=== PATIENT | male | born 1975 | race Hispanic/Latino ===

== ENCOUNTER 2017-01-26 14:22 | Emergency (ER) | payer MEDICAID, OTHER ==
[2017-01-26 14:28] VITALS: TEMP 97.9
--- NOTE | 2017-01-26 14:55 | RAD ---
PROCEDURE: Left Ankle Radiographs. HISTORY: pain s.p injury COMPARISON: None FINDINGS: BONES: Comminuted calcaneal fracture. JOINTS: No dislocation. SOFT TISSUES: Soft tissue swelling. No evidence of radiopaque foreign body. OTHER FINDINGS: None. IMPRESSION: Soft tissue swelling. Comminuted displaced calcaneal fracture with intra-articular extension.
--- NOTE | 2017-01-26 14:57 | RAD ---
PROCEDURE: Left Foot Radiographs. HISTORY: pain s.p injury COMPARISON: None. FINDINGS: BONES: There is an acute displaced fracture in the body with 8 mm distraction of fracture fragments and mild inferior displacement. Of the calcaneus JOINTS: There is probable dislocation of the talocalcaneal joint. SOFT TISSUES: Normal. OTHER FINDINGS: None. IMPRESSION: Acute displaced fracture in the calcaneus with suspected dislocation of the talocalcaneal joint.
--- NOTE | 2017-01-26 15:18 | C.PDOC ---
History Of Present Illness 41 y/o male presents to ED with complaints of left foot and ankle swelling for 10 days. Patient states 12 days ago he fell down the stairs and has been putting ice on foot and resting foot. He states he has not been able to move or walk secondary to pain. He noticed bruising over the past few days. Patient came to ED walking with 2 canes. Patient states he is from [place], and moved here 2 months ago. Patient is also asking for refill of his Lexapro. ( Lexapro 20mg by Dr Rodrigo Li) Time Seen by Provider: 01/26/17 14:38 Chief Complaint (Nursing): Lower Extremity Problem/Injury History Per: Patient History/Exam Limitations: no limitations Onset/Duration Of Symptoms: Days Current Symptoms Are (Timing): Still Present - Ankle/Foot Description Of Injury: Fell Currently Unable To: Bear Weight Past Medical History Reviewed: Historical Data, Nursing Documentation, Vital Signs Vital Signs: Last Vital Signs Temp 97.9 F 01/26/17 17:46 Pulse 74 01/26/17 17:46 Resp 18 01/26/17 17:46 BP 131/90 01/26/17 17:46 Pulse Ox 97 01/26/17 18:09 - Medical History PMH: Anxiety, Depression Other PMH: ADHD, Insomnia Surgical History: No Surg Hx Family History: States: Unknown Family Hx - Social History Hx Alcohol Use: No Hx Substance Use: No - Immunization History Hx Tetanus Toxoid Vaccination: Yes Hx Influenza Vaccination: Yes Hx Pneumococcal Vaccination: Yes Review Of Systems Constitutional: Negative for: Weakness Eyes: Negative for: Vision Change Gastrointestinal: Negative for: Nausea, Vomiting Musculoskeletal: Positive for: Leg Pain, Foot Pain. Negative for: Back Pain Skin: Negative for: Rash Neurological: Negative for: Dizziness Physical Exam - Physical Exam Appears: Non-toxic, No Acute Distress Skin: Warm, Dry, No Rash, Ecchymosis (Right foot ecchymotic to plantar surface and lateral side) Head: Atraumatic, Normacephalic Eye(s): bilateral: Normal Inspection, EOMI Oral Mucosa: Moist Neck: Normal ROM Chest: Symmetrical Extremity: Tenderness (To left lateral ankle, calcaneus and dorsum of foot), No Calf Tenderness, Capillary Refill (<2 seconds), No Deformity, Swelling ( Moderate to left lateral ankle and foot) Pulses: Left Dorsalis Pedis: Normal, Right Dorsalis Pedis: Normal Neurological/Psych: Oriented x3, Normal Speech, Normal Motor, Normal Sensation Gait: Unable To Assess ED Course And Treatment - Laboratory Results Result Diagrams: 01/26/17 17:03 01/26/17 17:03 Lab Interpretation: No Acute Changes ECG: Interpreted By Me, Viewed By Me ECG Rhythm: Sinus Rhythm ECG Interpretation: No Acute Changes Rate From EC (bpm) O2 Sat by Pulse Oximetry: 97 (RA) Pulse Ox Interpretation: Normal Medical Decision Making Medical Decision Making: Impression: Foot and ankle swelling, suspect fracture Plan: Xray foot and ankle Progress: Xray reviewed showing soft tissue swelling. Comminuted displaced calcaneal fracture with intra-articular extension. 15:08 Paged podiatry 15:10 Podiatry resident calls back and will come to see patient 15:41 Podiatry resident Martha evaluated patient 17:48 Podiatry resident Martha states she spoke with attending Dr Briseno and wants pre-operative labs and CT of lower extremity. Patient is scheduled for surgery Tuesday 01/30. Podiatry resident applied Colon dressing and Posterior splint Patient was instructed on crutch training by CP. All labs and EKG ordered and reviewed with no acute findings. Patient given his refill of Lexapro and instructed to return for admission for surgery in 2 days. Patient verbalized understanding. Disposition - Disposition Referrals: Clinic,Med Surg [Primary Care Provider] - Gale Briseno DPM [Staff Provider] - Disposition: HOME/ ROUTINE Disposition Time: 18:40 Condition: STABLE Additional Instructions: You must return for admission Monday and scheduled for surgery Monday. Prescriptions: Escitalopram [Lexapro] 20 mg PO DAILY #14 tab Instructions: Calcaneal Fracture (ED), Medicine Refill (ED) Forms: [employer] ([employer]) - POA Present On Arrival: None - Clinical Impression Clinical Impression: Left calcaneal fracture, Medicine refill - PA / AERONAUTICAL RESEARCH ENGINEER / Resident Statement MD/DO has reviewed & agrees with the documentation as recorded. - Scribe Statement The provider has reviewed the documentation as recorded by the Shastaiberich Ewing All medical record entries made by the Scribe were at my direction and personally dictated by me. I have reviewed the chart and agree that the record accurately reflects my personal performance of the history, physical exam, medical decision making, and the department course for this patient. I have also personally directed, reviewed, and agree with the discharge instructions and disposition.
[2017-01-26 15:35] VITALS: RESP 18
--- NOTE | 2017-01-26 16:06 | CP.PCM.CON ---
History of Present Illness - History of Present Illness History of Present Illness: 41 year old male with PMHx including anxiety, depression, insominia, ADHD presents to ED for left foot pain and swelling for 2 weeks. Patient states that 2 weeks ago he tripped and fell down stairs and twisted his left foot. He states that he has not been seen by a doctor for this problem previously. He admits to ice and rest and states that he has been walking on his feet as needed. He states that he just moved here from [place] and does not have a PMD. He also admits that he takes supplements for his medical problems. Denies n/v/f/c/sob/cp. All:Penicilin Fx:ADHD Surgica hx:none Social: admits to occasional cigarette smoking, denies EtOH, denies recreational drug use Past Patient History - Past Social History Smoking Status: Heavy Smoker > 10 Cigarettes Daily - PSYCHIATRIC Hx Anxiety: Yes Hx Substance Use: No - SURGICAL HISTORY Hx Surgeries: No - ANESTHESIA Hx Anesthesia: No Meds Home Medications: Home Medication List Medication Instructions Recorded Confirmed Type Escitalopram [Lexapro] 20 mg PO DAILY #14 tab 01/26/17 Rx Allergies/Adverse Reactions: Allergies Allergy/AdvReac Type Severity Reaction Status Date / Time Penicillins Allergy RASH Verified 01/26/17 14:28 Physical Exam - Constitutional Appears: Well, Non-toxic, No Acute Distress - Extremities Exam Additional comments: Lower extremity focused exam: Vasc: DP and PT pulses palpable 2/4 b/l. CFT < 3 seconds to all digits. Skin temperature warm to warm from proximal to distal b/l Neuro: Gross sensation intact b/l Derm: Ecchymosis noted to entire aspect of left foot and ankle. Non-pitting edema noted to dorsum of right foot and ankle. No open lesions, no drainage. Ortho: Muscle strength 5/5 for DF, PF, Inv, Evrt. Tenderness on palpation to left calcaneus. - Neurological Exam Neurological exam: Alert, Oriented x3 - Psychiatric Exam Psychiatric exam: Normal Affect, Normal Mood Results - Vital Signs Recent Vital Signs: Last Vital Signs Temp 97.9 F 01/26/17 14:25 Pulse 95 H 01/26/17 15:34 Resp 18 01/26/17 15:34 BP 110/69 01/26/17 15:34 Pulse Ox 97 01/26/17 15:34 - Labs Result Diagrams: 01/26/17 17:03 01/26/17 17:03 Assessment & Plan - Assessment and Plan (Free Text) Assessment: 41 year old male with left calcaneal fracture Plan: patient examined and evaluated discussed in detail with attending, Dr. Briseno chart and vitals reviewed foot radiographic IMPRESSION: Acute displaced fracture in the calcaneus with suspected dislocation of the talocalcaneal joint. ankle radiographic IMPRESSION: Soft tissue swelling. Comminuted displaced calcaneal fracture with intra-articular extension. modified hughes compressive dressing and posterior splint applied to LLE patient to remain non WB to LLE with crutches keep dressing c/d/i patient to OR Monday at noon for ORIF of left calcaneus pt to come back on Monday for admission and pre op clearance CT ordered pre-op labs and testing ordered
[2017-01-26 17:12] LABS: BASO # 0.1 K/uL (0.0-0.2); BASO % 1.1 % (0.0-2.0); EOS # 0.6 K/uL (0.0-0.7); EOS % 5.7 % (0.0-4.0); HEMATOCRIT 42.9 % (35.0-51.0); LYMPH # 2.5 K/uL (1.0-4.3); LYMPH % 24.9 % (20.0-40.0); MEAN CELL VOLUME 93.3 fL (80.0-94.0); MEAN CORPUSCULAR HEMOGLOBIN 31.9 pg (27.0-31.0); MEAN CORPUSCULAR HGB CONC 34.2 g/dL (33.0-37.0); MONO # 0.9 K/uL (0.0-0.8); MONO % 8.7 % (0.0-10.0); NRBC % 0.1 % (0.0-2.0); RED CELL DISTRIBUTION WIDTH 12.9 % (11.5-14.5); WHITE BLOOD COUNT 10.1 K/uL (4.8-10.8)
[2017-01-26 17:21] LABS: CHLORIDE 97 mmol/L (98-107); POTASSIUM 4.5 mmol/L (3.6-5.2); SODIUM 138 mmol/L (132-148)
[2017-01-26 17:23] LABS: ALB/GLOB RATIO 1.1 (1.0-2.1); ALKALINE PHOSPHATASE 71 U/L (38-126); AST/SGOT 22 U/L (17-59); BILIRUBIN,TOTAL 0.7 mg/dL (0.2-1.3); CARBON DIOXIDE 29 mmol/L (22-30); GFR AFRICAN-AMERICAN > 60; TOTAL PROTEIN 7.7 g/dL (6.3-8.3)
[2017-01-26 17:24] LABS: ALT/SGPT 38 U/L (21-72); BLOOD UREA NITROGEN 11 mg/dL (9-20); GLUCOSE,RANDOM 82 mg/dL (75-110)
[2017-01-26 18:01] VITALS: BP 131/90; PULSE 74
[2017-01-26 18:09] VITALS: O2SAT 97
--- NOTE | 2017-01-26 18:22 | CT ---
PROCEDURE: HISTORY: calcaneus fracture COMPARISON: TECHNIQUE: 2.5 mm axial acquisition and display. Coronal and sagittal reconstructions. Dose report (mGy-cm): 306.78 FINDINGS: Comminuted calcaneal fracture. There is distraction of the major fracture fragments. Although this study is not diagnostic for Achilles tendon injury the Achilles tendon and insertion on the adjacent calcaneal fragment appears preserved. Preservation of talocalcaneal and talonavicular joint spaces. Profound edema at noted about the plantar aspect of the foot as well as medial aspect of the ankle. No additional fractures identified. The distal tibia and fibula are within normal limits. IMPRESSION: Acute, comminuted fracture of the calcaneus. Additional information provided above.
[2017-01-26 18:47] LABS: RBC URINE < 1 /hpf (0-3); URINE BILIRUBIN NEGATIVE (NEGATIVE); URINE BLOOD NEGATIVE (NEGATIVE); URINE GLUCOSE (UA) NORMAL (Normal); URINE KETONE NEGATIVE (NEGATIVE); URINE LEUKOCYTE ESTERASE NEG Leu/uL (Negative); URINE PROTEIN NEGATIVE (NEGATIVE); URINE UROBILINOGEN NORMAL mg/dL (0.2-1.0); WBC URINE < 1 /hpf (0-5)
[2017-01-26 18:51] LABS: URINE COLOR YELLOW (YELLOW)
--- NOTE | 2017-01-29 17:44 | CARD ---
APPROVED REPORT EKG Measurement Heart [id number] <Conclusion> Normal sinus rhythm Normal ECG
== END 2017-01-26 18:42 | disposition home or self-care (01) ==
LOC: SUPCPDRO 14:22 → C.ER 14:22
DX: S92.062A Displaced intraarticular fracture of left calcaneus, initial encounter for closed fracture (principal); W10.9XXA Fall (on) (from) unspecified stairs and steps, initial encounter; Y92.9 Unspecified place or not applicable

== ENCOUNTER 2017-01-29 19:33 | Inpatient (IN) | payer MEDICAID, OTHER ==
--- NOTE | 2017-01-29 20:35 | C.PDOC ---
History Of Present Illness 41 year old male presents to the ED, states he was instructed to come to ER for medical admission/medical optimization prior to OR repair tomorrow by freight dispatcher Dr. Briseno. Patient has a right sided calcaneal fracture, was seen in ER and splinted by podiatry resident on 01/26/2017 ([facility] ED). He admits he has sometimes been walking on the foot. He denies new falls/injuries. Time Seen by Provider: 01/29/17 19:54 Chief Complaint (Nursing): Lower Extremity Problem/Injury History Per: Patient History/Exam Limitations: no limitations Onset/Duration Of Symptoms: Days Current Symptoms Are (Timing): Still Present Severity: Moderate Additional History Per: Prior Records Past Medical History Reviewed: Historical Data, Nursing Documentation, Vital Signs Vital Signs: Last Vital Signs Temp 98.2 F 02/03/17 15:58 Pulse 77 02/03/17 15:58 Resp 20 02/03/17 15:58 BP 132/83 02/03/17 15:58 Pulse Ox 96 02/03/17 15:58 - Medical History PMH: Anxiety, Depression Family History: States: No Known Family Hx - Social History Hx Alcohol Use: No Hx Substance Use: No - Immunization History Hx Tetanus Toxoid Vaccination: Yes Hx Influenza Vaccination: Yes Hx Pneumococcal Vaccination: Yes Review Of Systems Except As Marked, All Systems Reviewed And Found Negative. Constitutional: Negative for: Fever, Chills Cardiovascular: Negative for: Chest Pain, Palpitations Respiratory: Negative for: Cough, Shortness of Breath Gastrointestinal: Negative for: Nausea, Vomiting, Abdominal Pain, Diarrhea Musculoskeletal: Positive for: Foot Pain (right calcaneal fracture ) Neurological: Negative for: Weakness, Numbness Physical Exam - Physical Exam Appears: Well, Non-toxic, No Acute Distress Skin: Warm, Dry Head: Atraumatic, Normacephalic Eye(s): bilateral: Normal Inspection Oral Mucosa: Moist Neck: Supple Cardiovascular: Rhythm Regular Respiratory: Normal Breath Sounds, No Rales, No Rhonchi, No Wheezing Gastrointestinal/Abdominal: Normal Exam, Bowel Sounds, Soft, No Tenderness Extremity: No Calf Tenderness, Capillary Refill (<2 sec all digits ), Other ( Posterior splint on right foot ) Pulses: Left Dorsalis Pedis: Normal, Right Dorsalis Pedis: Normal Neurological/Psych: Oriented x3, Normal Sensation (digits of foot ) Gait: With Assistance (patient is using crutches) ED Course And Treatment - Laboratory Results Result Diagrams: 02/03/17 06:16 02/03/17 06:16 ECG: Interpreted By Me, Viewed By Me (sinus rhythm 97 bpm, normal axis, no acute ST/T wave changes) ECG Rhythm: Sinus Rhythm (89 bpm ) ECG Interpretation: Normal O2 Sat by Pulse Oximetry: 97 (room air ) Pulse Ox Interpretation: Normal Progress Note: Preop blood work, CXR, and EKG ordered and reviewed. Podiatry resident was informed patient was in the ED, and [facility] patient is scheduled for OR tomorrow and was instructed to return ED for medical optimization. Patient was evaluated by podiatry resident at 20:15. - Physician Consult Information Physician Contacted: Efren Bragg Outcome Of Conversation: Discussed patient with hospitalist, agrees with admission to his service with Dr. Briseno for podiatry. Disposition - Disposition Disposition: HOSPITALIZED Disposition Time: 21:00 Condition: STABLE - Clinical Impression Clinical Impression: Calcaneal fracture - Scribe Statement The provider has reviewed the documentation as recorded by the Scribe Louise Hernandez All medical record entries made by the Scribe were at my direction and personally dictated by me. I have reviewed the chart and agree that the record accurately reflects my personal performance of the history, physical exam, medical decision making, and the department course for this patient. I have also personally directed, reviewed, and agree with the discharge instructions and disposition. Decision To Admit - Pt Status Changed To: Hospital Disposition Of: Inpatient - Admit Certification Admit to Inpatient:: After my assessment, the patient will require hospitalization for at least two midnights. This is because of the severity of symptoms shown, intensity of services needed, and/or the medical risk in this patient being treated as an outpatient. - InPatient: Physician Admission Certification: I certify that this patient requires 2 or more midnights of care for the following reason:: see notes - . Bed Request Type: Regular Admitting Physician: Efren Bragg Patient Diagnosis: Calcaneal fracture
[2017-01-29 20:41] LABS: BASO # 0.1 K/uL (0.0-0.2); BASO % 0.6 % (0.0-2.0); EOS # 0.5 K/uL (0.0-0.7); EOS % 5.1 % (0.0-4.0); HEMATOCRIT 38.2 % (35.0-51.0); LYMPH # 2.4 K/uL (1.0-4.3); LYMPH % 23.5 % (20.0-40.0); MEAN CORPUSCULAR HEMOGLOBIN 31.7 pg (27.0-31.0); MEAN CORPUSCULAR HGB CONC 34.1 g/dL (33.0-37.0); MEAN PLATELET VOLUME 7.1 fL (7.2-11.7); MONO # 0.7 K/uL (0.0-0.8); MONO % 7.4 % (0.0-10.0); RED CELL DISTRIBUTION WIDTH 13.3 % (11.5-14.5); WHITE BLOOD COUNT 10.1 K/uL (4.8-10.8)
[2017-01-29 20:46] LABS: CHLORIDE 102 mmol/L (98-107); SODIUM 138 mmol/L (132-148)
[2017-01-29 20:49] LABS: BLOOD UREA NITROGEN 18 mg/dL (9-20); CARBON DIOXIDE 23 mmol/L (22-30); GFR AFRICAN-AMERICAN > 60
[2017-01-29 20:50] LABS: GLUCOSE,RANDOM 104 mg/dL (75-110)
--- NOTE | 2017-01-29 21:09 | CP.PCM.CON ---
History of Present Illness - History of Present Illness History of Present Illness: 41 year old male with PMHx including anxiety, depression, insominia, ADHD presents to ED for left foot pain and swelling for 2 weeks. Patient states that a little more 2 weeks ago he tripped and fell down stairs and twisted his left foot. He was previously seen in the ED where he was placed in a hughes compressive dressing with a posterior splint and instructed to remain non-WB to LLE. He admits to walking 3 miles in the splint in the past few days. Denies n/ v/f/c/sob/cp. All:Penicilin Fx:ADHD Surgica hx:none Social: admits to occasional cigarette smoking, denies EtOH, denies recreational drug use Past Patient History - Infectious Disease Hx of Infectious Diseases: None - Past Social History Smoking Status: Current Some Days Smoker - PSYCHIATRIC Hx Anxiety: Yes Hx Depression: Yes Hx Substance Use: No - SURGICAL HISTORY Hx Surgeries: No - ANESTHESIA Hx Anesthesia: No Meds Allergies/Adverse Reactions: Allergies Allergy/AdvReac Type Severity Reaction Status Date / Time Penicillins Allergy Severe ANAPHYLAXIS Verified 01/29/17 19:51 Physical Exam - Constitutional Appears: Well, Non-toxic, No Acute Distress - Extremities Exam Additional comments: Dressing intact to LLE, but the outside dressing is dirty CFT< 3 seconds to all digits on left foot - Neurological Exam Neurological exam: Alert, Oriented x3 - Psychiatric Exam Psychiatric exam: Normal Affect, Normal Mood Results - Vital Signs Recent Vital Signs: Last Vital Signs Temp 99.0 F 01/29/17 19:43 Pulse 100 H 01/29/17 19:43 Resp 20 01/29/17 19:43 BP 134/87 01/29/17 19:43 Pulse Ox 97 01/29/17 20:53 - Labs Result Diagrams: 01/30/17 08:04 01/30/17 08:04 Labs: Laboratory Results - last 24 hr 01/29/17 01/29/17 01/29/17 20:31 20:31 20:31 WBC 10.1 RBC 4.11 L Hgb 13.0 Hct 38.2 MCV 93.0 MCH 31.7 H MCHC 34.1 RDW 13.3 Plt Count 409 H MPV 7.1 L Neut % (Auto) 63.4 Lymph % (Auto) 23.5 Atkinson % (Auto) 7.4 Eos % (Auto) 5.1 H Baso % (Auto) 0.6 Neut # 6.4 Lymph # 2.4 Atkinson # 0.7 Eos # 0.5 Baso # 0.1 PT 11.0 INR 1.0 APTT 35 H Sodium 138 Potassium 4.0 Chloride 102 Carbon Dioxide 23 Anion Gap 17 BUN 18 Creatinine 0.9 Est GFR ( Amer) > 60 Est GFR (Non-Af Amer) > 60 Random Glucose 104 Calcium 9.0 Blood Type 01/29/17 20:31 WBC RBC Hgb Hct MCV MCH MCHC RDW Plt Count MPV Neut % (Auto) Lymph % (Auto) Atkinson % (Auto) Eos % (Auto) Baso % (Auto) Neut # Lymph # Atkinson # Eos # Baso # PT INR APTT Sodium Potassium Chloride Carbon Dioxide Anion Gap BUN Creatinine Est GFR ( Amer) Est GFR (Non-Af Amer) Random Glucose Calcium Blood Type O POSITIVE Assessment & Plan - Assessment and Plan (Free Text) Assessment: 41 year old male with left calcaneal fracture Plan: patient examined and evaluated discussed in detail with attending, Dr. Briseno chart,labs and vitals reviewed foot radiographic IMPRESSION from 01/26/17: Acute displaced fracture in the calcaneus with suspected dislocation of the talocalcaneal joint. ankle radiographic IMPRESSION from 01/26/17: Soft tissue swelling. Comminuted displaced calcaneal fracture with intra-articular extension. dressing left intact to LLE patient to remain non WB to LLE with crutches patient to OR tomorrow at noon for ORIF of left calcaneus NPO after midnight pre-op labs and testing ordered by ED attending medical optimization to be obtained from primary team prior to taking pt to OR podiatry will continue to follow patient while in house
--- NOTE | 2017-01-29 21:55 | CP.PCM.HP ---
<Steffi Janell DAVILA - Last Filed: 01/29/17 21:46> History of Present Illness - History of Present Illness History of Present Illness: CC: "I fell" Patient is a 41 year old male with past medical history anxiety, depression and insomnia who reports a fall on 01/17/17. Patient states he was in [place] on his way home after work when he fell down 10-15 steps and twisted his left foot. Patient states he could not put weight on the foot following the fall and had assistance to the subway to get back home. Patient states he placed ice on his foot and rested it and avoided placing weight on the foot. Patient states he started a new job and does not have health insurance yet so he tried to wait and see if the foot improved. Patient states he did not see any improvement and came to the ER on 01/26. Xrays taken on that day indicated a calcaneal fracture and suspected dislocation of the talocalcaneal joint. Patient was seen by podiatry at that time and was told to return to the ED today for a planned ORIF of the left calcaneus for 01/30/17. Patient states he has been taking Aleve and Advil PM for pain with some relief. Patient reports intact sensation to the foot and improved pain since the splinting on 01/26. PMD: none PMHx: anxiety, depression, ADHA, insomnia, hypoglycemia which patient reports worsens his ADHD Meds: takes half a lexapro 20mg tablet, was taking 4 benadryl tablets plus two advil PM tablets to sleep at night. has taken klonopin in the past PSHx: denies family hx: denies social hx: denies alcohol and drugs, reports recently smoking 10 cigarettes per day since the fall that broke his calcaneus, moved here 3 months ago from [place], [place] by [facility] on 3rd floor- no elevator, works in a restaurant Present on Admission - Present on Admission Any Indicators Present on Admission: No Review of Systems - Constitutional Constitutional: absent: Chills, Fever, Weight Loss, Weakness - EENT Eyes: absent: Blurred Vision Nose/Mouth/Throat: absent: Nasal Congestion - Cardiovascular Cardiovascular: absent: Chest Pain - Respiratory Respiratory: absent: Cough, Dyspnea - Gastrointestinal Gastrointestinal: absent: Abdominal Pain, Diarrhea, Nausea, Vomiting - Genitourinary Genitourinary: absent: Difficulty Urinating, Dysuria - Musculoskeletal Musculoskeletal: Joint Swelling (left ankle). absent: Arthralgias, Back Pain, Numbness, Tingling - Integumentary Integumentary: absent: Rash, Skin Ulcer - Neurological Neurological: absent: Dizziness, Weakness - Psychiatric Psychiatric: Abnormal Sleep Pattern, Anxiety, Depression Past Patient History - Infectious Disease Hx of Infectious Diseases: None - Past Social History Smoking Status: Current Some Days Smoker - PSYCHIATRIC Hx Anxiety: Yes Hx Depression: Yes Hx Substance Use: No - SURGICAL HISTORY Hx Surgeries: No - ANESTHESIA Hx Anesthesia: No Meds Allergies/Adverse Reactions: Allergies Allergy/AdvReac Type Severity Reaction Status Date / Time Penicillins Allergy Severe ANAPHYLAXIS Verified 01/29/17 19:51 Physical Exam - Constitutional Appears: Non-toxic, No Acute Distress - Head Exam Head Exam: ATRAUMATIC, NORMOCEPHALIC - Eye Exam Eye Exam: EOMI - ENT Exam ENT Exam: Mucous Membranes Moist - Respiratory Exam Respiratory Exam: Clear to Auscultation Bilateral, NORMAL BREATHING PATTERN - Cardiovascular Exam Cardiovascular Exam: +S1, +S2 - GI/Abdominal Exam GI & Abdominal Exam: Normal Bowel Sounds, Soft. absent: Tenderness - Extremities Exam Additional comments: left ankle in splint- intact sensation to toes left foot, patient can move toes - Neurological Exam Neurological exam: Alert, Oriented x3 - Psychiatric Exam Psychiatric exam: Anxious - Expanded Psychiatric Exam Expanded Focused psych exam: Pressured Speech - Skin Skin Exam: Dry, Warm Results - Vital Signs Recent Vital Signs: Last Vital Signs Temp 99.0 F 01/29/17 19:43 Pulse 100 H 01/29/17 19:43 Resp 20 01/29/17 19:43 BP 134/87 01/29/17 19:43 Pulse Ox 97 01/29/17 20:53 - Labs Result Diagrams: 01/29/17 20:31 01/29/17 20:31 Labs: Laboratory Results - last 24 hr 01/29/17 01/29/17 01/29/17 20:31 20:31 20:31 WBC 10.1 RBC 4.11 L Hgb 13.0 Hct 38.2 MCV 93.0 MCH 31.7 H MCHC 34.1 RDW 13.3 Plt Count 409 H MPV 7.1 L Neut % (Auto) 63.4 Lymph % (Auto) 23.5 [place] % (Auto) 7.4 Eos % (Auto) 5.1 H Baso % (Auto) 0.6 Neut # 6.4 Lymph # 2.4 [place] # 0.7 Eos # 0.5 Baso # 0.1 PT 11.0 INR 1.0 APTT 35 H Sodium 138 Potassium 4.0 Chloride 102 Carbon Dioxide 23 Anion Gap 17 BUN 18 Creatinine 0.9 Est GFR ( Amer) > 60 Est GFR (Non-Af Amer) > 60 Random Glucose 104 Calcium 9.0 Blood Type Antibody Screen 01/29/17 20:31 WBC RBC Hgb Hct MCV MCH MCHC RDW Plt Count MPV Neut % (Auto) Lymph % (Auto) [place] % (Auto) Eos % (Auto) Baso % (Auto) Neut # Lymph # [place] # Eos # Baso # PT INR APTT Sodium Potassium Chloride Carbon Dioxide Anion Gap BUN Creatinine Est GFR ( Amer) Est GFR (Non-Af Amer) Random Glucose Calcium Blood Type O POSITIVE Antibody Screen Negative Assessment & Plan - Assessment and Plan (Free Text) Assessment: Calcaneal fracture pt to go to OR tomorrow with Dr. Briseno for ORIF left calcaneus NPO after midnight foot radiographic IMPRESSION from 01/26/17: Acute displaced fracture in the calcaneus with suspected dislocation of the talocalcaneal joint. ankle radiographic IMPRESSION from 01/26/17: Soft tissue swelling. Comminuted displaced calcaneal fracture with intra-articular extension. CT 01/26: Comminuted calcaneal fracture. There is distraction of the major fracture fragments. Although this study is not diagnostic for Achilles tendon injury the Achilles tendon and insertion on the adjacent calcaneal fragment appears preserved. Preservation of talocalcaneal and talonavicular joint spaces. chest xray- AP only- poor inspiratory effort, no obvious infiltrates seen, official report pending pending EKG per Detsky score, patient Class I low risk for non cardiac surgery Anxiety and depression will continue home medication lexapro 10mg- patient states he takes it at night as it makes him lethargic will place psychiatry consult- help appreciated Insomnia will try restoril tonight for sleep explained to patient that 4 benadryl tablets plus 2 advil PM is not a safe amount of medication Prophylactic measure non WB to LLE with crutches holding heparin for surgery tomorrow NPO after midnight protonix 40mg daily Plan D/W Dr. Bragg <Efren Bragg - Last Filed: 01/30/17 06:15> Results - Vital Signs Recent Vital Signs: Last Vital Signs Temp 98.1 F 01/29/17 23:50 Pulse 78 01/29/17 23:50 Resp 20 01/29/17 23:50 BP 117/79 01/29/17 23:50 Pulse Ox 96 01/29/17 23:50 - Labs Result Diagrams: 01/29/17 20:31 01/29/17 20:31 Assessment & Plan - Date & Time Date: 01/30/17 (I have seen and examined the patient. I agree with the findings and plan of care as documented by Dr. Kapadia. Patient with calcaneal fracture. Consult to podiatry. Symptomatic treatment. Medically optimize prior to procedure. Also with history of anxiety, depression, and insomnia. Patient may be misusing his meds to treat insomnia. Consult to psych. Discussed issue with patient regarding his use of medications for sleep. Monitor for acute changes.) Time: 06:14 Attending/Attestation - Attestation I have personally seen and examined this patient.: Yes I have fully participated in the care of the patient.: Yes I have reviewed all pertinent clinical information: Yes
--- NOTE | 2017-01-30 08:19 | CP.PCM.PCO ---
Physician Communication Note - Physician Communication Note Physician Communication Note: Please see above
[2017-01-30 08:21] LABS: BASO # 0.1 K/uL (0.0-0.2); BASO % 1.3 % (0.0-2.0); EOS # 0.6 K/uL (0.0-0.7); EOS % 6.9 % (0.0-4.0); HEMATOCRIT 38.4 % (35.0-51.0); LYMPH # 2.5 K/uL (1.0-4.3); LYMPH % 27.4 % (20.0-40.0); MEAN CELL VOLUME 92.4 fL (80.0-94.0); MEAN CORPUSCULAR HEMOGLOBIN 31.6 pg (27.0-31.0); MEAN CORPUSCULAR HGB CONC 34.2 g/dL (33.0-37.0); MONO # 0.8 K/uL (0.0-0.8); MONO % 9.1 % (0.0-10.0); RED CELL DISTRIBUTION WIDTH 12.6 % (11.5-14.5)
--- NOTE | 2017-01-30 08:24 | CP.PCM.PN ---
Subjective - Date & Time of Evaluation Date of Evaluation: 01/30/17 Time of Evaluation: 08:24 - Subjective Subjective: Patient seen resting comfortably at bedside this morning with attending, Dr. Luo. Patient is aware he is going for surgery this afternoon with Dr. Briseno. NPO status confirmed. He denies nay n/v/f/c/sob/cp. Objective - Vital Signs/Intake and Output Vital Signs (last 24 hours): Temp Pulse Resp BP Pulse Ox 98.1 F 78 20 117/79 96 01/29/17 23:50 01/29/17 23:50 01/29/17 23:50 01/29/17 23:50 01/29/17 23:50 Intake and Output: 01/30/17 01/30/17 06:59 18:59 Output Total 450 Balance -450 - Medications Medications: Current Medications Escitalopram Oxalate (Lexapro) 10 mg PO HS MARIZOL Last Admin: 01/30/17 00:47 Dose: Not Given Pantoprazole Sodium (Protonix Ec Tab) 40 mg PO DAILY MARIZOL Temazepam (Restoril) 30 mg PO HS PRN PRN Reason: Insomnia Last Admin: 01/30/17 00:46 Dose: 30 mg - Labs Labs: PT 11.0 SECONDS (9.7-12.2) 01/29/17 20:31 INR 1.0 01/29/17 20:31 APTT 35 SECONDS (21-34) H 01/29/17 20:31 - Constitutional Appears: Well, Non-toxic, No Acute Distress - Extremities Exam Additional comments: splint intact to LLE pt able to wiggle toes CFT <3 seconds to all digits on L - Neurological Exam Neurological Exam: Alert, Awake, Oriented x3 - Psychiatric Exam Psychiatric exam: Normal Affect, Normal Mood Assessment and Plan - Assessment and Plan (Free Text) Assessment: 41 year old male with left calcaneal fracture Plan: patient examined and evaluated NPO status confirmed Pre op testing and optimization in chart Pt was explained procedure and post-op course all pts questions answered to patients satisfaction no guarantees were made pt understands all risks, benefits, and complications of procedure pt will follow up with
[2017-01-30 08:40] LABS: CHLORIDE 100 mmol/L (98-107); SODIUM 135 mmol/L (132-148)
[2017-01-30 08:42] LABS: GFR AFRICAN-AMERICAN > 60
[2017-01-30 08:44] LABS: ALKALINE PHOSPHATASE 86 U/L (38-126); ALT/SGPT 39 U/L (21-72); AST/SGOT 31 U/L (17-59); BILIRUBIN,TOTAL 0.7 mg/dL (0.2-1.3); BLOOD UREA NITROGEN 16 mg/dL (9-20); CALCIUM 9.2 mg/dl (8.6-10.4); CARBON DIOXIDE 26 mmol/L (22-30); GLUCOSE,RANDOM 87 mg/dL (75-110); MAGNESIUM 1.8 mg/dL (1.6-2.3); PHOSPHOROUS 3.5 mg/dL (2.5-4.5); TOTAL PROTEIN 6.8 g/dL (6.3-8.3)
--- NOTE | 2017-01-30 09:35 | RAD ---
PROCEDURE: CHEST RADIOGRAPH, 1 VIEW HISTORY: PREOP COMPARISON: None available. FINDINGS: LUNGS: Poor inspiration with low lung volumes, minor crowded bronchovascular markings and mild bibasilar atelectasis. PLEURA: No pneumothorax or pleural fluid seen. CARDIOVASCULAR: Normal. OSSEOUS STRUCTURES: No significant abnormalities. VISUALIZED UPPER ABDOMEN: Normal. OTHER FINDINGS: None. IMPRESSION: Poor inspiration with low lung volumes, mild crowded bronchovascular markings and mild bibasilar atelectasis
--- NOTE | 2017-01-30 09:41 | CP.PCM.PN ---
<Papi Cabrera - Last Filed: 01/30/17 15:29> Subjective - Date & Time of Evaluation Date of Evaluation: 01/30/17 Time of Evaluation: 07:40 - Subjective Subjective: PGY-[address] Gabriel Luo Patient seen and examined at bedside. Patient reports doing well with no complaints. Patient was able to sleep well on Restoril last evening. Patient is for left calcaneal ORIF this afternoon. Objective - Vital Signs/Intake and Output Vital Signs (last 24 hours): Temp Pulse Resp BP Pulse Ox 97.5 F L 74 20 121/78 97 01/30/17 08:35 01/30/17 08:35 01/30/17 08:35 01/30/17 08:35 01/30/17 08:35 Intake and Output: 01/30/17 01/30/17 06:59 18:59 Output Total 450 Balance -450 - Medications Medications: Current Medications Escitalopram Oxalate (Lexapro) 10 mg PO HS MARIZOL Last Admin: 01/30/17 00:47 Dose: Not Given Pantoprazole Sodium (Protonix Ec Tab) 40 mg PO DAILY MARIZOL Temazepam (Restoril) 30 mg PO HS PRN PRN Reason: Insomnia Last Admin: 01/30/17 00:46 Dose: 30 mg - Labs Labs: 01/30/17 08:04 01/30/17 08:04 PT 11.0 SECONDS (9.7-12.2) 01/29/17 20:31 INR 1.0 01/29/17 20:31 APTT 35 SECONDS (21-34) H 01/29/17 20:31 - Constitutional Appears: No Acute Distress - Head Exam Head Exam: ATRAUMATIC, NORMAL INSPECTION, NORMOCEPHALIC - Eye Exam Eye Exam: EOMI, PERRL - ENT Exam ENT Exam: Mucous Membranes Moist - Respiratory Exam Respiratory Exam: Clear to Ausculation Bilateral. absent: Rales, Rhonchi, Wheezes - Cardiovascular Exam Cardiovascular Exam: REGULAR RHYTHM, +S1, +S2 - GI/Abdominal Exam GI & Abdominal Exam: Soft, Normal Bowel Sounds. absent: Tenderness - Extremities Exam Additional comments: Patient's left leg, ankle, and foot are wrapped in splint. No tenderness at this time. Patient able to freely move the digits of the left foot. Decreased sensation of the left foot digits compared to the right. - Neurological Exam Neurological Exam: Alert, Awake, Oriented x3 - Skin Skin Exam: Dry, Intact, Normal Color, Warm Assessment and Plan - Assessment and Plan (Free Text) Plan: Calcaneal fracture OR this afternoon with Dr. Briseno for ORIF left calcaneus NPO for surgery foot radiographic IMPRESSION from 01/26/17: Acute displaced fracture in the calcaneus with suspected dislocation of the talocalcaneal joint. ankle radiographic IMPRESSION from 01/26/17: Soft tissue swelling. Comminuted displaced calcaneal fracture with intra-articular extension. CT 01/26: Comminuted calcaneal fracture. There is distraction of the major fracture fragments. Although this study is not diagnostic for Achilles tendon injury the Achilles tendon and insertion on the adjacent calcaneal fragment appears preserved. Preservation of talocalcaneal and talonavicular joint spaces. per Detsky score, patient Class I low risk for non cardiac surgery EKG ordered PT/OT eval ordered for 01/31 Anxiety and depression will continue home medication lexapro 10mg PO HS Dr. Santoro Psychiatry consult- help appreciated Insomnia Restoril 30 mg PO HS prn Prophylactic measure non WB to LLE with crutches holding heparin for surgery NPO protonix 40mg daily 01/30: Per conversation with podiatry resident, patient will need to be non-WB for 6-8 weeks post op and will most likely be cleared for discharge by them tomorrow. He may follow up in the Podiatry Clinic at the [facility]. Case DW Dr. Emma Cabrera PGY-1 <Gabriel Luo - Last Filed: 01/30/17 19:57> Objective - Vital Signs/Intake and Output Vital Signs (last 24 hours): Temp Pulse Resp BP Pulse Ox 97.4 F L 100 H 22 163/102 H 99 01/30/17 18:20 01/30/17 18:20 01/30/17 18:20 01/30/17 18:20 01/30/17 18:20 Intake and Output: 01/30/17 01/31/17 18:59 06:59 Intake Total 2050 Output Total 650 Balance 1400 - Medications Medications: Current Medications Alprazolam (Xanax) 0.5 mg PO TID PRN PRN Reason: Anxiety Last Admin: 01/30/17 19:02 Dose: 0.5 mg Escitalopram Oxalate (Lexapro) 10 mg PO HS MARIZOL Last Admin: 01/30/17 00:47 Dose: Not Given Lactated Ringer's (Lactated Ringer's) 1,000 mls @ 150 mls/hr IV .Q6H40M MARIZOL Morphine Sulfate (Morphine) 2 mg IVP Q4 PRN PRN Reason: Pain, severe (8-10) Last Admin: 01/30/17 18:38 Dose: 2 mg Oxycodone/Acetaminophen (Percocet 5/325 Mg Tab) 1 tab PO Q4H PRN PRN Reason: Pain, Mild (1-3) Stop: 02/02/17 16:21 Oxycodone/Acetaminophen (Percocet 5/325 Mg Tab) 2 tab PO Q4H PRN PRN Reason: Pain, moderate (4-7) Stop: 02/02/17 16:21 Pantoprazole Sodium (Protonix Ec Tab) 40 mg PO DAILY [facility] Last Admin: 01/30/17 14:18 Dose: Not Given Temazepam (Restoril) 30 mg PO HS PRN PRN Reason: Insomnia Last Admin: 01/30/17 00:46 Dose: 30 mg - Labs Labs: 01/30/17 08:04 01/30/17 08:04 PT 11.0 SECONDS (9.7-12.2) 01/29/17 20:31 INR 1.0 01/29/17 20:31 APTT 35 SECONDS (21-34) H 01/29/17 20:31 Attending/Attestation - Attestation I have personally seen and examined this patient.: Yes I have fully participated in the care of the patient.: Yes I have reviewed all pertinent clinical information, including history, physical exam and plan: Yes Notes (Text): 01/30/17 19:56 Patient was seen and examined at 8 AM 01/30/17. Exam, Assessment and Plan were thoroughly gone over with the Resident. Patient will have to be cleared by Podiatry and PT for discharge to home. Gabriel Luo D.O.
[2017-01-30] MEDS ORDERED: Bupivacaine 0.5% Inj(30mL) ONE ×2 (11:59→17:21)
[2017-01-30] MEDS ORDERED: Midazolam 2 MG/2 ML VIAL ONE ×2 (12:20→16:32)
[2017-01-30] MEDS ORDERED: Propofol 10 mg/ml Inj (20 ML) ONE (12:20)
[2017-01-30] MEDS ORDERED: Clindamycin 600mg/50ml NS 600 MG/50 ML BAG IVPB ONE (12:28)
[2017-01-30] MEDS ORDERED: ePHEDrine 50 mg/ml Inj ONE (12:54)
--- NOTE | 2017-01-30 14:12 | PCM.PSYCH ---
Initial Psychiatric Evaluation - Initial Psychiatric Evaluation Type of Admission: Voluntary Legal Status: Capacity Chief Complaint (in patient's own words): "I have problems with sleeping and anxiety." Patient's Reaction to Hospitalization: cooperative History of Present Illness and Precipitating Events: Patient is a 41 year old male with a pmhx or ADHD and depression (diagnosed in 2001), who comes to the hospital for a planned ORIF of the left calcaneus s/p falling down the steps on 01/17/17. He admits that psychiatrists have told him he has bipolar disorder in the past, but he does not believe that he has that. [facility] [place] [facility] so as a child was not allowed to take medications. Patient says that in 2001 he was on adderrall / ritalin but it made things worse and he didn't like those medications. Now he uses natural supplements and takes Lexapro for the past 2 years which he says helps. He has a lot of trouble sleeping and sometimes takes a few benadryls plus 2 advil pm to help him fall asleep. He says he can stay up for 2-3 nights without sleep and he will organize/ clean. He admits to impulsive behavior and says he spends a lot on clothes and sometimes goes on shopping sprees. He used to live in [place], moved to [place], and recently moved to [place]. He currently has no job and is getting money from his father. He says he has a lot of job offers and that getting a job is not a problem for him. He says his mind races a lot and he has many different thoughts that he cannot calm down which worsens when he tries to fall asleep. He admits to hearing voices which are usually just whispers. Sometimes the voices will say his name or something negative. He does not have visual hallucinations but sometimes does feel paranoid like someone is watching him. Patient denies SI/HI. Psychhx: depression, ADHD, bipolar (but never been on medications for it), insomnia Social hx: single, no kids, works in hospitality, theater, acting, moved from, moved from [place] 2 months ago used to drink alcohol (sober for 8 years), denies drugs, smokes 10 cigarettes per day since moving to [place] Famhx: father- ADHD, Mother- anxiety Current Medications: Active Medications Generic Name Dose Route Start Last Admin Trade Name Freq PRN Reason Stop Dose Admin Escitalopram Oxalate 10 mg 01/29/17 22:00 01/30/17 00:47 Lexapro PO Not Given HS MAIRZOL Pantoprazole Sodium 40 mg 01/30/17 10:00 Protonix Ec Tab PO DAILY MARIZOL Temazepam 30 mg 01/29/17 21:44 01/30/17 00:46 Restoril PO 30 mg HS PRN Administration Insomnia Past Psychiatric History - Past Psychiatric History Previous Treatment History: None History of ETOH/Drug Use: used to have alcohol use disorder, sober for 8 years Pertinent Medical Hx (Current Medical&Sleep Prob, Allergies): Allergies Allergy/AdvReac Type Severity Reaction Status Date / Time Penicillins Allergy Severe ANAPHYLAXIS Verified 01/29/17 19:51 Amitriptyline [Elavil] 25 mg PO DAILY 01/26/17 Escitalopram [Lexapro] 20 mg PO DAILY #14 tab 01/26/17 Review of Systems - Psychiatric Psychiatric: Abnormal Sleep Pattern, Anxiety, Auditory Hallucinations, Difficulty Concentrating, Mood Swings, Paranoia. absent: Visual Hallucinations Mental Status Examination - Personal Presentation Personal Presentation: Looks stated age - Affect Affect: Broad - Motor Activity Motor Activity: Psychomotor Agitation - Reliability in Providing Information Reliability in Providing Information: Good - Speech Speech: Organized - Mood Mood: Euphoric - Formal Thought Process Formal Thought Process: Hallucinations, Paranoia - Hallucinations/Delusions Hallucinations: Auditory - Obsessions/Compulsions Obsessions: No Compulsions: No - Cognitive Functions Orientation: Person, Place, Situation, Time Sensorium: Alert Attention/Concentration: Attentive Abstract Thinking: Kinsley Estimate of Intelligence: Average Judgement: Imparied, as evidence by: Lack of insight into illness Memory: Recent intact, as evidence by: Ability to recall events of the day - Risk Risk: Diminished functioning - Strength & Assets Inventory Strength & Assets Inventory: Family support DSM 5 DX - DSM 5 DSM 5 Diagnosis: Bipolar I Disorder Anxiety disorder Insomnia Disorder - Recommended/Plan of Treatment Treatment Recommendations and Plan of Treatment: Bipolar I disorder Abilify patient to follow with psychiatrist as an outpatient Insomnia disorder Trazodone 32min
[2017-01-30] MEDS: Pantoprazole 40 mg EC Tab PO SCH (14:18)
[2017-01-30] MEDS ORDERED: Oxycodone/Acetaminophen 5/325 mg Tab PO PRN ×3 (16:20→16:36)
--- NOTE | 2017-01-30 16:25 | PCM.SURG1 ---
Surgeon's Initial Post Op Note - Surgeon's Notes Surgeon: Dr. Briseno Book Critic: Valerio, PGY-3; Oral, PGY-3; Stanley, PGY-3; Meet, PGY-1 Type of Anesthesia: General LMA, Block Regional (popliteal block) Anesthesia Administered By: Dr. Bey Pre-Operative Diagnosis: Left foot- displaced and comminuted intra-articular fracture of the calcaneus Operative Findings: See operative report. Hemostasis: PTT at 350mmHg. Materials: Synthes 2.7mm VA-LCP calcaneal plate; 7.3x55mm cannulated screw; 2.7x32mm, 2.7x34mm and 2.7x36mm non-locking screws; 2.7x16mm locking screws x3; 2.7x24mm locking screw; 2.7 x30mm locking screw x4; 2.7x32mm locking screw; 3cc Norian Drillable bone cement; 2-0 vicryl; 3-0 nylon; xeroform, ABD pads, DSD, webril, posterior splint, RICKIE bandages Post-Operative Diagnosis: Same as above Operation Performed: Left foot- open reduction and internal fixation of displaced calcaneal fracture with plate and screw fixation Specimen/Specimens Removed: None Estimated Blood Loss: EBL {In ML}: 25 Blood Products Given: N/A Drains Used: No Drains Post-Op Condition: Good Date of Surgery/Procedure: 01/30/17 Time of Surgery/Procedure: 12:00
[2017-01-30] MEDS ORDERED: Lactated Ringer's 1,000 ML IV ONE ×3 (16:35→18:00)
[2017-01-30] MEDS ORDERED: HYDROmorphone 0.5 mg/0.5 ml ISec ONE (16:53)
[2017-01-30] MEDS: HYDROmorphone 0.5 mg/0.5 ml ISec IVP PRN ×5 (16:55→17:42)
[2017-01-30] MEDS ORDERED: Lidocaine Hydrochloride 5 ML INJ ONE (17:20)
--- NOTE | 2017-01-30 17:57 | PCM.ANESB2 ---
Popliteal Nerve Block - Popliteal Nerve Block Date of Procedure: 01/30/17 Anesthesiologist: Rai Pre-Procedure Diagnosis: S/p left calcaneus Post-Procedure Diagnosis: same Procedure Performed: Popliteal Nerve Block Left - Procedure Popliteal Nerve Block: This procedure was explained to the patient that it is for post-operative pain management. Consent was obtained after a thorough discussion with the patient regarding the benefits and possible complications of local anesthetic block of the sciatic nerve at the popliteal level. The patient lying supine and monitors are applied. Time-out was held with the PACU nurse to confirm the correct laterality and the appropriate block . After applying oxygen by nasal cannula, patient's operative leg was gently raised and supported and the groove in between the biceps femoris and vastus lateralis muscles was carefully palpated. The skin approximately 8cm above the popliteal crease was then marked. The ultrasound transducer was then applied to the posterior thigh approximately 8cm above the popliteal crease in the transverse plane and the sciatic nerve before its division was visualized lateral to the popliteal artery and in between the bicep femoris and semimembranosus/semitendinosus muscles. After identification, the lateral portion of the thigh was prepped with chloraprep and Lidocaine 1% was injected subcutaneously for topical anesthesia. At this point, a # 21 gauge Stimuplex insulated 4 inch needle was inserted into pre-marked area and advanced in a perpendicular direction. The needle was inserted above the ultrasound transducer in-plane towards the sciatic nerve in a [id number] direction. Needle advancement was performed carefully under direct ultrasound visualization. After repeated negative aspiration, 5cc of 0.5 %Bupivacaine was injected and this was followed with 15 cc of 0.5% bupivacaine. Under ultrasound guidance the local anesthetics were observed tenting the epidural sheath and surrounding the roots of the sciatic nerve. The needle was removed intact and sterile dressing was applied. The patient tolerated the popliteal nerve block well with stable vital signs.
[2017-01-30] MEDS ORDERED: HYDROmorphone 0.5 mg/0.5 ml ISec IVP STA (21:35)
--- NOTE | 2017-01-30 21:41 | CP.PCM.CON ---
History of Present Illness - History of Present Illness History of Present Illness: 41 y/o PMH anxiety, depression, bipolar d/o? who is now s/p ORIF left calcaneus fracture. Patient in 03/21 dull constant pain at surgical site, gripping sides of bed yelling in pain. Denies taking any pain medications at home. Was getting relief in PACU with hydromorphone but states pain markedly returned after being transferred to floor. Did receive popliteal block but states it did not help. Otherwise, denies CP, SOB, N/V, lethargy or other symptoms. Past Patient History - Infectious Disease Hx of Infectious Diseases: None - Past Medical History & Family History Past Medical History?: Yes - Past Social History Smoking Status: Current Some Days Smoker - CARDIAC Hx Cardiac Disorders: No - PULMONARY Hx Respiratory Disorders: No - NEUROLOGICAL Hx Neurological Disorder: No - HEENT Hx HEENT Problems: No - RENAL Hx Chronic Kidney Disease: No - ENDOCRINE/METABOLIC Hx Endocrine Disorders: Yes Other/Comment: Hx of hypoglycemia - HEMATOLOGICAL/ONCOLOGICAL Hx Blood Disorders: No - INTEGUMENTARY Hx Dermatological Problems: No - MUSCULOSKELETAL/RHEUMATOLOGICAL Hx Musculoskeletal Disorders: Yes Hx Falls: Yes (Fell down stairs Jan.17) - GASTROINTESTINAL Hx Gastrointestinal Disorders: No - GENITOURINARY/GYNECOLOGICAL Hx Genitourinary Disorders: No - PSYCHIATRIC Hx Anxiety: Yes Hx Depression: Yes Hx Substance Use: No - SURGICAL HISTORY Hx Surgeries: No - ANESTHESIA Hx Anesthesia: No Meds Allergies/Adverse Reactions: Allergies Allergy/AdvReac Type Severity Reaction Status Date / Time Penicillins Allergy Severe ANAPHYLAXIS Verified 01/29/17 19:51 - Medications Medications: Current Medications Alprazolam (Xanax) 0.5 mg PO TID PRN PRN Reason: Anxiety Last Admin: 01/30/17 19:02 Dose: 0.5 mg Escitalopram Oxalate (Lexapro) 10 mg PO HS [facility] Last Admin: 01/30/17 00:47 Dose: Not Given Lactated Ringer's (Lactated Ringer's) 1,000 mls @ 150 mls/hr IV .Q6H40M [facility] Morphine Sulfate (Morphine) 2 mg IVP Q4 PRN PRN Reason: Pain, severe (8-10) Last Admin: 01/30/17 18:38 Dose: 2 mg Oxycodone/Acetaminophen (Percocet 5/325 Mg Tab) 1 tab PO Q4H PRN PRN Reason: Pain, Mild (1-3) Stop: 02/02/17 16:21 Oxycodone/Acetaminophen (Percocet 5/325 Mg Tab) 2 tab PO Q4H PRN PRN Reason: Pain, moderate (4-7) Stop: 02/02/17 16:21 Pantoprazole Sodium (Protonix Ec Tab) 40 mg PO DAILY [facility] Last Admin: 01/30/17 14:18 Dose: Not Given Temazepam (Restoril) 30 mg PO HS PRN PRN Reason: Insomnia Last Admin: 01/30/17 00:46 Dose: 30 mg Physical Exam - Constitutional Appears: In Acute Distress Additional comments: screaming that he is in 10/10 pain. - Respiratory Exam Respiratory Exam: Clear to Auscultation Bilateral - Cardiovascular Exam Cardiovascular Exam: Tachycardia, REGULAR RHYTHM - GI/Abdominal Exam GI & Abdominal Exam: Normal Bowel Sounds, Soft (all extremities warm, well perfused) Results - Vital Signs Recent Vital Signs: Last Vital Signs Temp 97.4 F L 01/30/17 18:20 Pulse 100 H 01/30/17 18:20 Resp 22 01/30/17 18:20 BP 163/102 H 01/30/17 18:20 Pulse Ox 99 01/30/17 18:20 - Labs Result Diagrams: 01/30/17 08:04 01/30/17 08:04 Labs: Laboratory Results - last 24 hr 01/30/17 01/30/17 01/30/17 08:04 08:04 16:42 WBC 9.0 RBC 4.16 L Hgb 13.1 Hct 38.4 MCV 92.4 MCH 31.6 H MCHC 34.2 RDW 12.6 Plt Count 403 H MPV 7.0 L Neut % (Auto) 55.3 Lymph % (Auto) 27.4 Cavalier % (Auto) 9.1 Eos % (Auto) 6.9 H Baso % (Auto) 1.3 Neut # 5.0 Lymph # 2.5 Cavalier # 0.8 Eos # 0.6 Baso # 0.1 Sodium 135 Potassium 4.0 Chloride 100 Carbon Dioxide 26 Anion Gap 14 BUN 16 Creatinine 0.8 Est GFR ( Amer) > 60 Est GFR (Non-Af Amer) > 60 POC Glucose (mg/dL) 127 H Random Glucose 87 Calcium 9.2 Phosphorus 3.5 Magnesium 1.8 Total Bilirubin 0.7 AST 31 ALT 39 Alkaline Phosphatase 86 Total Protein 6.8 Albumin 3.5 Globulin 3.3 Albumin/Globulin Ratio 1.0 Assessment & Plan - Assessment and Plan (Free Text) Assessment: 41 y/o PMH anxiety, depression, bipolar d/o? who is now s/p ORIF left calcaneus fracture POD 0. Patient with history as above, with acute postoperative surgical pain, no relief after popliteal block. Patient was getting relief in PACU with hydromorphone. If current pain regimen is not working: -please DC morphine and oxycodone/percocet -start hydromorphone 0.2mg with 10 minute lockout, max 4mg in 4hours -tylenol, ibuprofen PRN -bowel regimen
[2017-01-30] MEDS: Lactated Ringer's 1,000 ML IV SCH (22:44)
[2017-01-31] MEDS: Oxycodone/Acetaminophen 5/325 mg Tab PO PRN ×2 (02:31→06:01)
[2017-01-31 06:58] LABS: BASO # 0.1 K/uL (0.0-0.2); BASO % 0.3 % (0.0-2.0); EOS # 0.1 K/uL (0.0-0.7); EOS % 0.7 % (0.0-4.0); LYMPH # 1.6 K/uL (1.0-4.3); LYMPH % 8.8 % (20.0-40.0); MEAN CELL VOLUME 92.2 fL (80.0-94.0); MEAN CORPUSCULAR HEMOGLOBIN 31.2 pg (27.0-31.0); MEAN CORPUSCULAR HGB CONC 33.8 g/dL (33.0-37.0); MONO # 1.8 K/uL (0.0-0.8); MONO % 9.6 % (0.0-10.0); PLATELET COUNT 344 K/uL (130-400); RED CELL DISTRIBUTION WIDTH 13.2 % (11.5-14.5); WHITE BLOOD COUNT 18.6 K/uL (4.8-10.8)
[2017-01-31 07:41] LABS: CHLORIDE 95 mmol/L (98-107); POTASSIUM 3.9 mmol/L (3.6-5.2); SODIUM 133 mmol/L (132-148)
[2017-01-31 07:43] LABS: ALB/GLOB RATIO 1.1 (1.0-2.1); ALKALINE PHOSPHATASE 73 U/L (38-126); AST/SGOT 28 U/L (17-59); BILIRUBIN,TOTAL 0.8 mg/dL (0.2-1.3); CARBON DIOXIDE 29 mmol/L (22-30); GFR AFRICAN-AMERICAN > 60; TOTAL PROTEIN 6.2 g/dL (6.3-8.3)
[2017-01-31 07:44] LABS: ALT/SGPT 35 U/L (21-72); BLOOD UREA NITROGEN 9 mg/dL (9-20); CALCIUM 8.6 mg/dl (8.6-10.4); GLUCOSE,RANDOM 99 mg/dL (75-110); MAGNESIUM 1.4 mg/dL (1.6-2.3); PHOSPHOROUS 3.9 mg/dL (2.5-4.5)
[2017-01-31] MEDS: Lactated Ringer's 1,000 ML IV SCH ×5 (08:20→22:10)
[2017-01-31 08:47] LABS: NEUTROPHIL 78 % (50-75); TOTAL CELLS COUNTED 100
[2017-01-31] MEDS: Pantoprazole 40 mg EC Tab PO SCH (10:22)
--- NOTE | 2017-01-31 10:53 | CP.PCM.PN ---
Subjective - Date & Time of Evaluation Date of Evaluation: 01/31/17 Time of Evaluation: 10:53 - Subjective Subjective: 41 year old male was seen resting comfortably at bedside 1 day s/p Left calcaneal ORIF. Patient admits to having a lot of pain overnight, but admits now it is controlled. He is seen with his leg elevated on 3 pillows and ice behind his knee. He states that he had PT today and it went well. Denies n/v/f/ c/sob/cp. Objective - Vital Signs/Intake and Output Vital Signs (last 24 hours): Temp Pulse Resp BP Pulse Ox 98.2 F 91 H 20 132/81 98 01/31/17 09:12 01/31/17 09:12 01/31/17 09:12 01/31/17 09:12 01/31/17 09:12 Intake and Output: 01/31/17 01/31/17 06:59 18:59 Intake Total 250 Output Total 1700 Balance -1450 - Medications Medications: Current Medications Alprazolam (Xanax) 0.5 mg PO TID PRN PRN Reason: Anxiety Last Admin: 01/30/17 19:02 Dose: 0.5 mg Escitalopram Oxalate (Lexapro) 10 mg PO HS [facility] Last Admin: 01/30/17 23:01 Dose: 10 mg Lactated Ringer's (Lactated Ringer's) 1,000 mls @ 150 mls/hr IV .Q6H40M [facility] Last Admin: 01/31/17 08:21 Dose: Not Given Ketorolac Tromethamine (Toradol) 30 mg IVP Q6 PRN PRN Reason: Pain, severe (8-10) Ketorolac Tromethamine (Toradol) 15 mg IVP Q6 PRN PRN Reason: Pain, moderate (4-7) Oxycodone/Acetaminophen (Percocet 5/325 Mg Tab) 1 tab PO Q4H PRN PRN Reason: Pain, Mild (1-3) Stop: 02/02/17 16:21 Last Admin: 01/31/17 06:01 Dose: 1 tab Pantoprazole Sodium (Protonix Ec Tab) 40 mg PO DAILY [facility] Last Admin: 01/31/17 10:22 Dose: 40 mg Temazepam (Restoril) 30 mg PO HS PRN PRN Reason: Insomnia Last Admin: 01/30/17 00:46 Dose: 30 mg - Labs Labs: 01/31/17 06:39 01/31/17 06:39 PT 11.0 SECONDS (9.7-12.2) 01/29/17 20:31 INR 1.0 01/29/17 20:31 APTT 35 SECONDS (21-34) H 01/29/17 20:31 - Constitutional Appears: Well, Non-toxic, No Acute Distress - Extremities Exam Additional comments: Posterior splint c/d/i to LLE CFT < 3 seconds to all digits on left - Neurological Exam Neurological Exam: Alert, Awake, Oriented x3 - Psychiatric Exam Psychiatric exam: Normal Affect, Normal Mood Assessment and Plan - Assessment and Plan (Free Text) Assessment: 41 year old male 1 day s/p Left calcaneal ORIF Plan: patient examined and evaluated discussed with attending, Dr. Briseno chart, labs, vitals reviewed splint to stay c/d/i continue pain medication RICE to LLE patient to remain non-WB to LLE with crutches podiatry will continue to follow patient while in house patient to follow up in podiatry clinic upon D/C
--- NOTE | 2017-01-31 11:20 | RAD ---
PROCEDURE: Left Foot Radiographs. HISTORY: s/p calcaneal fracture ORIF COMPARISON: Left foot radiographs 01/16/2017 FINDINGS: BONES: PC in a patient seen to be status post right calcaneus open reduction internal fixation with lateral compression device reducing fracture of the calcaneus by numerous transfixing screws as well as a solitary independent compression screw from from posteriorly. The compression plate has been placed bilateral approach. Partial cast has been applied to the left foot. No separate/additional fracture or subluxation/dislocation is appreciated. JOINTS: As above SOFT TISSUES: Limited local soft tissues identified at the hindfoot surrounding the calcaneus. OTHER FINDINGS: None. IMPRESSION: Status post open reduction and internal fixation of left calcaneal fracture as per above.
--- NOTE | 2017-01-31 13:35 | RAD ---
PROCEDURE: INTRAOPERATIVE FLUOROSCOPY LEFT CALCANEUS HISTORY: LEFT HEEL ORIF COMPARISON: LEFT ANKLE RADIOGRAPH 01/26/2017 TECHNIQUE: Intraoperative fluoroscopy was provided to the referring physician to assist in open reduction internal fixation of left calcaneal fracture. Four spot fluoroscopic images of been submitted. FINDINGS: The images demonstrate open reduction and internal fixation of calcaneal fracture via a lateral compression plate and multiple screws as well as an independent screw from the plate. Please see operative report further detail. IMPRESSION: Status post open reduction internal fixation of left calcaneal fracture as per above. Please see operative report for further detail. Total dose 0.18 mGy
--- NOTE | 2017-01-31 14:16 | CP.PCM.PN ---
Subjective - Date & Time of Evaluation Date of Evaluation: 01/31/17 Time of Evaluation: 10:20 - Subjective Subjective: PGY-[address] Gabriel Luo Patient seen and examined at bedside. Patient stating that he is currently feeling fine except for feeling hot. This is despite patient removing most of his clothing and the Air conditioner on high. Patient states that his pain was controlled overnight on his Dilaudid PERSONAL CAREGIVER. Patient denies fevers, chills, headache, dizziness, chest pain, SOB, abdominal pain, dysuria. Objective - Vital Signs/Intake and Output Vital Signs (last 24 hours): Temp Pulse Resp BP Pulse Ox 98.2 F 91 H 20 132/81 98 01/31/17 09:12 01/31/17 09:12 01/31/17 09:12 01/31/17 09:12 01/31/17 09:12 Intake and Output: 01/31/17 01/31/17 06:59 18:59 Intake Total 250 Output Total 1700 Balance -1450 - Medications Medications: Current Medications Alprazolam (Xanax) 0.5 mg PO TID PRN PRN Reason: Anxiety Last Admin: 01/30/17 19:02 Dose: 0.5 mg Escitalopram Oxalate (Lexapro) 10 mg PO HS [facility] Last Admin: 01/30/17 23:01 Dose: 10 mg Lactated Ringer's (Lactated Ringer's) 1,000 mls @ 150 mls/hr IV .Q6H40M [facility] Last Admin: 01/31/17 08:21 Dose: Not Given Ketorolac Tromethamine (Toradol) 30 mg IVP Q6 PRN PRN Reason: Pain, severe (8-10) Ketorolac Tromethamine (Toradol) 15 mg IVP Q6 PRN PRN Reason: Pain, moderate (4-7) Oxycodone/Acetaminophen (Percocet 5/325 Mg Tab) 1 tab PO Q4H PRN PRN Reason: Pain, Mild (1-3) Stop: 02/02/17 16:21 Last Admin: 01/31/17 06:01 Dose: 1 tab Pantoprazole Sodium (Protonix Ec Tab) 40 mg PO DAILY [facility] Last Admin: 01/31/17 10:22 Dose: 40 mg Temazepam (Restoril) 30 mg PO HS PRN PRN Reason: Insomnia Last Admin: 01/30/17 00:46 Dose: 30 mg - Labs Labs: 01/31/17 06:39 01/31/17 06:39 PT 11.0 SECONDS (9.7-12.2) 01/29/17 20:31 INR 1.0 01/29/17 20:31 APTT 35 SECONDS (21-34) H 01/29/17 20:31 - Constitutional Appears: No Acute Distress - Head Exam Head Exam: ATRAUMATIC, NORMAL INSPECTION, NORMOCEPHALIC - Eye Exam Eye Exam: EOMI, PERRL - ENT Exam ENT Exam: Mucous Membranes Moist - Respiratory Exam Respiratory Exam: Clear to Ausculation Bilateral. absent: Rales, Rhonchi, Wheezes - Cardiovascular Exam Cardiovascular Exam: REGULAR RHYTHM, +S1, +S2 - GI/Abdominal Exam GI & Abdominal Exam: Soft, Normal Bowel Sounds. absent: Tenderness - Extremities Exam Additional comments: Left foot and leg wrapped and splinted. s/p left calcaneal ORIF. Not currently tender. Right lower extremity no edema or tenderness. - Neurological Exam Neurological Exam: Alert, Awake, Oriented x3 - Psychiatric Exam Psychiatric exam: Anxious - Skin Skin Exam: Dry, Intact, Normal Color, Warm Assessment and Plan - Assessment and Plan (Free Text) Plan: Left Calcaneal fracture Dr. Briseno performed ORIF of left calcaneus on 01/30 foot radiographic IMPRESSION from 01/26/17: Acute displaced fracture in the calcaneus with suspected dislocation of the talocalcaneal joint. ankle radiographic IMPRESSION from 01/26/17: Soft tissue swelling. Comminuted displaced calcaneal fracture with intra-articular extension. CT 01/26: Comminuted calcaneal fracture. There is distraction of the major fracture fragments. Although this study is not diagnostic for Achilles tendon injury the Achilles tendon and insertion on the adjacent calcaneal fragment appears preserved. Preservation of talocalcaneal and talonavicular joint spaces. PT/OT eval and treatment Patient Non-WB for 6-8 weeks. Will need to use crutches in the meantime. Toradol 30 mg IV Q6 prn for severe pain Toradol 15 mg IV Q6 prn for moderate pain Anxiety and depression will continue home medication lexapro 10mg PO HS Dr. Santoro Psychiatry consult- help appreciated Insomnia Restoril 30 mg PO HS prn Prophylactic measure non WB to LLE with crutches protonix 40mg daily 01/30: Per conversation with podiatry resident, patient will need to be non-WB for 6-8 weeks post op and will most likely be cleared for discharge by them tomorrow. He may follow up in the Podiatry Clinic at the [facility]. 01/31: Waiting on clearance from PT. Patient received popliteal nerve block last night without efficacy. Patient then placed on Dilaudid PERSONAL CAREGIVER with relief. However , today it was explained to the patient that he needs to avoid narcotics due to the nature of his pain. It was explained that anti-inflammatory medications to reduce inflammation should be the goal for his pain management. Patient agrees with this plan and wishes to avoid becoming dependent on narcotics. Case DW Dr. Emma Cabrera PGY-1
--- NOTE | 2017-01-31 19:32 | CARD ---
APPROVED REPORT EKG Measurement Heart [id number] <Conclusion> Normal sinus rhythm Normal ECG
[2017-02-01] MEDS: Lactated Ringer's 1,000 ML IV SCH ×5 (02:23→22:24)
[2017-02-01 07:09] LABS: BASO # 0.1 K/uL (0.0-0.2); BASO % 0.4 % (0.0-2.0); EOS # 0.3 K/uL (0.0-0.7); EOS % 2.3 % (0.0-4.0); HEMATOCRIT 32.5 % (35.0-51.0); LYMPH # 1.2 K/uL (1.0-4.3); LYMPH % 7.9 % (20.0-40.0); MEAN CELL VOLUME 93.6 fL (80.0-94.0); MEAN CORPUSCULAR HEMOGLOBIN 30.7 pg (27.0-31.0); MEAN CORPUSCULAR HGB CONC 32.8 g/dL (33.0-37.0); MEAN PLATELET VOLUME 7.2 fL (7.2-11.7); MONO # 1.3 K/uL (0.0-0.8); MONO % 8.7 % (0.0-10.0); NRBC % 0.1 % (0.0-2.0); PLATELET COUNT 324 K/uL (130-400); RED CELL DISTRIBUTION WIDTH 13.1 % (11.5-14.5); WHITE BLOOD COUNT 14.8 K/uL (4.8-10.8)
[2017-02-01 08:06] LABS: CHLORIDE 99 mmol/L (98-107); POTASSIUM 3.7 mmol/L (3.6-5.2); SODIUM 134 mmol/L (132-148)
[2017-02-01 08:08] LABS: ALKALINE PHOSPHATASE 77 U/L (38-126); AST/SGOT 21 U/L (17-59); BILIRUBIN,TOTAL 0.7 mg/dL (0.2-1.3); BLOOD UREA NITROGEN 10 mg/dL (9-20); CARBON DIOXIDE 27 mmol/L (22-30); GFR AFRICAN-AMERICAN > 60; TOTAL PROTEIN 5.9 g/dL (6.3-8.3)
[2017-02-01 08:09] LABS: ALT/SGPT 37 U/L (21-72); CALCIUM 8.4 mg/dl (8.6-10.4); GLUCOSE,RANDOM 99 mg/dL (75-110); MAGNESIUM 1.5 mg/dL (1.6-2.3); PHOSPHOROUS 2.8 mg/dL (2.5-4.5)
--- NOTE | 2017-02-01 08:10 | OP ---
PROCEDURE DATE: 01/30/2017 SURGEON: Gale Briseno DPM END WORKER: Quoc Luo DPM, PGY-3; Moreno Mixon DPM, PGY-3; Tammi Angel DPM PGY-3; Cleo Dsouza DPM PGY-1 PLASTIC MOULD MAKER: Dr. Bey ANESTHESIA: General endo with popliteal block. PREOPERATIVE DIAGNOSIS: Left foot - displaced and comminuted intraarticular fracture of the calcaneus. POSTOPERATIVE DIAGNOSIS: Left foot - displaced and comminuted intraarticular fracture of the calcaneus. NAME OF PROCEDURE: Left foot open reduction and internal fixation of displaced calcaneal fracture with plate and screw fixation. INDICATIONS: The patient is a 41-year-old male who injured his left foot secondary to a fall approximately 2 weeks ago. The patient presented to the [facility] ER on 01/26/2017 where both radiographs and a CT scan revealed a displaced, tongue-type calcaneal fracture with intraarticular extension for which the patient now requires surgical intervention. The patient signed the consent after careful explanation of risks, benefits, complications and alternatives of surgical procedure. No guarantees were given nor implied. IV clindamycin 600 mg was given to the patient prior to the procedure. The patient's n.p.o. status was confirmed prior to taking the patient to the OR. PREPARATION: The patient was brought to operating room, was placed on the operating room table in a lateral decubitus position. Time-out was performed for identification of the correct patient and the correct procedure. After induction of general anesthesia, a well-padded pneumatic thigh tourniquet was applied to the patient's left thigh. The left lower extremity was then prepped and draped in the usual sterile manner. Esmarch was utilized to exsanguinate the left foot. Pneumatic thigh tourniquet was then inflated to 350 mmHg and the procedure began. DESCRIPTION OF PROCEDURE: Attention was directed to the lateral aspect of the patient's left heel where a #15 blade was used to created a lateral extensile incision. The vertical arm of the incision was created approximately 0.5 cm anterior to the Achilles tendon and the horizontal arm was carried just dorsal to the plantar fat pad and was extended just proximal to the calcaneocuboid joint. The incision was deepened through the subcutaneous tissues using sharp and blunt dissection. Care was taken to identify and retract all vital neurovascular structures. All bleeders were cauterized and ligated as necessary. Using a fresh #15 blade, soft tissue was sharply dissected off the calcaneus in a subperiosteal fashion to allow for a full-thickness flap to be created. The flap contained the sural nerve as well as the peroneal tendons which were visualized distally within the flap. The flap was then gently retracted throughout the case ensuring that the sural nerve and the peroneal tendons were retracted and directed away from the operative field. At this time, the surgical site was flushed with a copious amount of sterile normal saline. The primary fracture line was now visualized within the lateral body of the calcaneus. Using a periosteal elevator, the fractured lateral wall of the calcaneus was gently freed and removed. It was then placed in sterile saline to be saved for later replacement. With the lateral portion of the calcaneal body now removed, a significant bony deficit was noted. The subtalar joint displacement was now visualized, it was noted that the superior portion of the fractured calcaneus was impacted inferiorly away from the articular surface. Thus, a small laminar literacy teacher was inserted between the 2 fractured segments at the most distal aspect of the secondary fracture line in order to elevate the posterior facet out of subtalar joint. Using intraoperative fluoroscopy, reduction of the posterior facet of the subtalar joint was now appreciated. The lamina literacy teacher was now removed. Next, a Schanz pin was now inserted through the posterior-superior portion of the fractured fragment from lateral to medial. The Schanz pin was used as a traction device to help reduce the posterior fracture fragment back into normal anatomic alignment. Once the superior fragment was adequately mobilized via the joystick maneuver, a bone clamp was now used to reduce the fracture. Multiple lateral and hindfoot axial images were taken in order to confirm this reduction. It was verified that the posterior facet of the subtalar joint was reduced along with yarsanism of length and width and height of the calcaneus. The previously inserted Schanz pin was now removed. At this time, the bony deficit within the lateral body of the calcaneus was now backfilled with approximately 3 mL of Synthes Norian drillable bone cement. The preserved lateral wall fragment was now reapplied to the calcaneus. Next, a [place] 2.7 VA-LCP large calcaneal plate was now placed over the calcaneus and using fluoroscopy, proper size was verified. The plate was then temporarily affixed to the bone using olive wires. Next, 2 non-locking screws were inserted within inferior holes of the plate. Next, the decision was made to insert an interfragmentary screw across the superior and inferior fracture fragments. Attention was now directed to the posterior aspect of the heel where a K-wire was driven percutaneously through the calcaneus in a posterior-superior to anterior-inferior direction. This was done using fluoroscopic guidance to ensure that the K-wire crossed the fracture site. A small stab incision was now created with a fresh #15 blade at the tip of the K-wire. Using a Synthes 5.0 cannulated drill bit over the K-wire, the bone was now drilled along the length of the K-wire. Next, a Synthes 7.3 mm x 55 mm cannulated, partially threaded screw was inserted via a lag technique. Using fluoroscopy, it was confirmed that this screw compressed the fracture site. The K-wire that was driven from posterior to anterior was now removed. Attention was then directed back to the calcaneal plate where multiple locking and non-locking screws were inserted one by one. A total of 3 non-locking screws were inserted through the plate and their sizes are as follows: 2.7 mm x 32, 34 and 36 mm. A total of 9 locking screws were also inserted and their sizes are as follows: 2.7 mm x 16 mm x3, 2.7 mm x 24 mm, 2.7 mm x 30 mm x4 and 2.7 mm x 32 mm. Care was taken to ensure that the screws placed directly beneath the posterior facet of the subtalar joint were extraarticular and did not violate the articular surface. Final fixation, location and alignment of all the inserted hardware was confirmed under fluoroscopy and proper reduction and fixation was appreciated at this time. The surgical wound was now irrigated with a copious amounts of sterile normal saline. The subcutaneous tissues were then reapproximated and coapted with 2-0 vicryl. The skin was then reapproximated and coapted with 3-0 nylon via a combination of vertical mattress and simple suture technique. The saphenous nerve was then blocked using 10 mL of 0.5% Marcaine plain. The surgical site was now dressed with Xeroform, 4 x 4 gauze, ABD pads and Kerlix. A well-padded posterior splint was now applied to the patient's left lower extremity with the ankle dorsiflexed to 90 degrees. The attending, Dr. Briseno, was present throughout the entire case. POSTOPERATIVE CONDITION: The patient tolerated the anesthesia and procedure well with no complication. The patient was reported to the recovery room with vital signs stable and neurovascular status intact to the left foot. The patient was instructed to remain nonweightbearing to the left foot with pressures. The patient will be seen and followed by Dr. Briseno while the patient remains in the hospital. Upon discharge, the patient is to follow up with Dr. Briseno at the [facility]. Quoc Luo DPM [email or web address]
--- NOTE | 2017-02-01 08:15 | CP.PCM.PN ---
Subjective - Date & Time of Evaluation Date of Evaluation: 02/01/17 Time of Evaluation: 08:15 - Subjective Subjective: 41 year old male was seen resting comfortably at bedside 2 day s/p Left calcaneal ORIF. He states that his pain is well controlled. Denies n/v/f/c/sob/ cp. Objective - Vital Signs/Intake and Output Vital Signs (last 24 hours): Temp Pulse Resp BP Pulse Ox 99.7 F H 90 20 107/69 97 02/01/17 04:29 02/01/17 04:29 02/01/17 04:29 02/01/17 04:29 01/31/17 23:40 Intake and Output: 02/01/17 02/01/17 06:59 18:59 Output Total 1000 Balance -1000 - Medications Medications: Current Medications Alprazolam (Xanax) 0.5 mg PO TID PRN PRN Reason: Anxiety Last Admin: 01/30/17 19:02 Dose: 0.5 mg Clindamycin HCl (Cleocin) 150 mg PO Q6H [facility] Last Admin: 02/01/17 04:55 Dose: 150 mg Escitalopram Oxalate (Lexapro) 10 mg PO HS [facility] Last Admin: 01/31/17 22:00 Dose: 10 mg Lactated Ringer's (Lactated Ringer's) 1,000 mls @ 150 mls/hr IV .Q6H40M [facility] Last Admin: 02/01/17 04:54 Dose: 150 mls/hr Ketorolac Tromethamine (Toradol) 30 mg IVP Q6 PRN PRN Reason: Pain, severe (8-10) Last Admin: 01/31/17 20:28 Dose: 30 mg Ketorolac Tromethamine (Toradol) 15 mg IVP Q6 PRN PRN Reason: Pain, moderate (4-7) Last Admin: 02/01/17 04:54 Dose: 15 mg Pantoprazole Sodium (Protonix Ec Tab) 40 mg PO DAILY [facility] Last Admin: 01/31/17 10:22 Dose: 40 mg Temazepam (Restoril) 30 mg PO HS PRN PRN Reason: Insomnia Last Admin: 01/30/17 00:46 Dose: 30 mg - Labs Labs: 02/01/17 06:54 01/31/17 06:39 PT 11.0 SECONDS (9.7-12.2) 01/29/17 20:31 INR 1.0 01/29/17 20:31 APTT 35 SECONDS (21-34) H 01/29/17 20:31 - Constitutional Appears: Well, Non-toxic, No Acute Distress - Extremities Exam Additional comments: Left Lower extremity focused exam: Vasc: DP pulse palpable CFT < 3 seconds to all digits. Skin temperature warm to warm from proximal to distal b/l Neuro: Gross sensation intact b/l Derm: Ecchymosis noted to entire aspect of left foot and ankle. Non-pitting edema noted to dorsum of left foot and ankle. Sutures are intact, periwound is macerated, no signs of dehiscence noted. Ortho: Pain on palpation to left calcaneus. - Neurological Exam Neurological Exam: Alert, Awake, Oriented x3 - Psychiatric Exam Psychiatric exam: Normal Affect, Normal Mood Assessment and Plan - Assessment and Plan (Free Text) Assessment: 41 year old male 2 day s/p Left calcaneal ORIF Plan: patient examined and evaluated discussed with attending, Dr. Briseno chart, labs, vitals reviewed;afebrile, WBC 14.8 left foot dressing changed with betadine soaked xeroform, DSD, and posterior splint continue pain medication cont IV abx RICE to LLE patient to remain non-WB to LLE with crutches podiatry will continue to follow patient while in house patient to follow up in podiatry clinic upon D/C
[2017-02-01 08:36] LABS: EOSINOPHIL 1 % (0-4); NEUTROPHIL 86 % (50-75); TOTAL CELLS COUNTED 100
[2017-02-01] MEDS: Pantoprazole 40 mg EC Tab PO SCH (10:02)
--- NOTE | 2017-02-01 11:37 | RAD ---
PROCEDURE: Left Ankle Radiographs. HISTORY: s/p left calcaneal ORIF COMPARISON: Left ankle radiographs 01/26/2017 FINDINGS: BONES: Patient is now status post open reduction internal fixation of left calcaneal fracture with lateral compression plate transfixed by multiple screws reducing the fracture as well as a separate posterior compression screw. Adequate reduction appears to been achieved. Postop soft tissue edema is seen at the hindfoot. Partial casting partially obscured due obscures bony and soft tissue anatomy. JOINTS: Normal. No osteoarthritis. Ankle mortise maintained. Talar dome intact SOFT TISSUES: Normal. OTHER FINDINGS: None. IMPRESSION: Status post open reduction and internal fixation of calcaneal fracture as described above.
--- NOTE | 2017-02-01 14:25 | CARD ---
APPROVED REPORT EKG Measurement Heart [id number] <Conclusion> Normal sinus rhythm Normal ECG
--- NOTE | 2017-02-01 17:35 | CP.PCM.PN ---
<Papi Cabrera - Last Filed: 02/01/17 17:32> Subjective - Date & Time of Evaluation Date of Evaluation: 02/01/17 Time of Evaluation: 07:30 - Subjective Subjective: PGY-[address] Gabriel Luo Patient seen and examined at bedside. Patient reported doing well with pain management with Toradol. Patient denied subjective fever, chills, headache, dizziness, chest pain, SOB, abdominal pain, dysuria. Patient did spike a fever overnight Tmax 100.7. Objective - Vital Signs/Intake and Output Vital Signs (last 24 hours): Temp Pulse Resp BP Pulse Ox 98.7 F 80 20 117/74 94 L 02/01/17 16:00 02/01/17 16:00 02/01/17 16:00 02/01/17 16:00 02/01/17 16:00 Intake and Output: 02/01/17 02/01/17 06:59 18:59 Intake Total 1680 Output Total 1000 Balance -1000 1680 - Medications Medications: Current Medications Alprazolam (Xanax) 0.5 mg PO TID PRN PRN Reason: Anxiety Last Admin: 01/30/17 19:02 Dose: 0.5 mg Clindamycin HCl (Cleocin) 150 mg PO Q6H [facility] Last Admin: 02/01/17 10:09 Dose: 150 mg Docusate Sodium (Colace) 100 mg PO BID [facility] Enoxaparin Sodium (Lovenox) 40 mg SC DAILY [facility] Escitalopram Oxalate (Lexapro) 10 mg PO HS [facility] Last Admin: 01/31/17 22:00 Dose: 10 mg Lactated Ringer's (Lactated Ringer's) 1,000 mls @ 150 mls/hr IV .Q6H40M [facility] Last Admin: 02/01/17 09:45 Dose: 150 mls/hr Ketorolac Tromethamine (Toradol) 15 mg IVP Q6 PRN PRN Reason: Pain, moderate (4-7) Last Admin: 02/01/17 04:54 Dose: 15 mg Ketorolac Tromethamine (Toradol) 30 mg IVP Q6 PRN PRN Reason: Pain, severe (8-10) Pantoprazole Sodium (Protonix Ec Tab) 40 mg PO DAILY [facility] Last Admin: 02/01/17 10:02 Dose: 40 mg Temazepam (Restoril) 30 mg PO HS PRN PRN Reason: Insomnia Last Admin: 01/30/17 00:46 Dose: 30 mg - Labs Labs: 02/01/17 06:54 02/01/17 06:54 PT 11.0 SECONDS (9.7-12.2) 01/29/17 20:31 INR 1.0 01/29/17 20:31 APTT 35 SECONDS (21-34) H 01/29/17 20:31 Assessment and Plan - Assessment and Plan (Free Text) Plan: Left Calcaneal fracture Dr. Briseno performed ORIF of left calcaneus on 01/30 foot radiographic IMPRESSION from 01/26/17: Acute displaced fracture in the calcaneus with suspected dislocation of the talocalcaneal joint. ankle radiographic IMPRESSION from 01/26/17: Soft tissue swelling. Comminuted displaced calcaneal fracture with intra-articular extension. CT 01/26: Comminuted calcaneal fracture. There is distraction of the major fracture fragments. Although this study is not diagnostic for Achilles tendon injury the Achilles tendon and insertion on the adjacent calcaneal fragment appears preserved. Preservation of talocalcaneal and talonavicular joint spaces. PT/OT eval and treatment Patient Non-WB for 6-8 weeks. Will need to use crutches in the meantime. Toradol 30 mg IV Q6 prn for severe pain Toradol 15 mg IV Q6 prn for moderate pain Anxiety and depression will continue home medication lexapro 10mg PO HS Dr. Santoro Psychiatry consult- help appreciated Insomnia Restoril 30 mg PO HS prn Prophylactic measure non WB to LLE with crutches protonix 40mg daily Incentive Spirometer Colace 100 mg PO BID Lovenox 40 mg SC daily 01/30: Per conversation with podiatry resident, patient will need to be non-WB for 6-8 weeks post op and will most likely be cleared for discharge by them tomorrow. He may follow up in the Podiatry Clinic at the [facility]. 01/31: Waiting on clearance from PT. Patient received popliteal nerve block last night without efficacy. Patient then placed on Dilaudid NEEDLE LOOM SETTER with relief. However , today it was explained to the patient that he needs to avoid narcotics due to the nature of his pain. It was explained that anti-inflammatory medications to reduce inflammation should be the goal for his pain management. Patient agrees with this plan and wishes to avoid becoming dependent on narcotics. Case DW Dr. Emma Cabrera PGY-1 <Gabriel Luo - Last Filed: 02/01/17 18:39> Objective - Vital Signs/Intake and Output Vital Signs (last 24 hours): Temp Pulse Resp BP Pulse Ox 98.7 F 80 20 117/74 94 L 02/01/17 16:00 02/01/17 16:00 02/01/17 16:00 02/01/17 16:00 02/01/17 16:00 Intake and Output: 02/01/17 02/01/17 06:59 18:59 Intake Total 1680 Output Total 1000 Balance -1000 1680 - Medications Medications: Current Medications Acetaminophen (Tylenol 325mg Tab) 650 mg PO Q6 PRN PRN Reason: Fever >100.4 F Alprazolam (Xanax) 0.5 mg PO TID PRN PRN Reason: Anxiety Last Admin: 01/30/17 19:02 Dose: 0.5 mg Clindamycin HCl (Cleocin) 150 mg PO Q6H [facility] Last Admin: 02/01/17 10:09 Dose: 150 mg Docusate Sodium (Colace) 100 mg PO BID [facility] Enoxaparin Sodium (Lovenox) 40 mg SC DAILY [facility] Escitalopram Oxalate (Lexapro) 10 mg PO HS [facility] Last Admin: 01/31/17 22:00 Dose: 10 mg Lactated Ringer's (Lactated Ringer's) 1,000 mls @ 150 mls/hr IV .Q6H40M [facility] Last Admin: 02/01/17 09:45 Dose: 150 mls/hr Ketorolac Tromethamine (Toradol) 15 mg IVP Q6 PRN PRN Reason: Pain, moderate (4-7) Last Admin: 02/01/17 04:54 Dose: 15 mg Ketorolac Tromethamine (Toradol) 30 mg IVP Q6 PRN PRN Reason: Pain, severe (8-10) Pantoprazole Sodium (Protonix Ec Tab) 40 mg PO DAILY [facility] Last Admin: 02/01/17 10:02 Dose: 40 mg Temazepam (Restoril) 30 mg PO HS PRN PRN Reason: Insomnia Last Admin: 01/30/17 00:46 Dose: 30 mg - Labs Labs: 02/01/17 06:54 02/01/17 06:54 PT 11.0 SECONDS (9.7-12.2) 01/29/17 20:31 INR 1.0 01/29/17 20:31 APTT 35 SECONDS (21-34) H 01/29/17 20:31 Attending/Attestation - Attestation I have personally seen and examined this patient.: Yes I have fully participated in the care of the patient.: Yes I have reviewed all pertinent clinical information, including history, physical exam and plan: Yes Notes (Text): 02/01/17 18:38 Patient was seen and examined with the resident - Constitutional Appears: No Acute Distress - Head Exam Head Exam: ATRAUMATIC, NORMAL INSPECTION, NORMOCEPHALIC - Eye Exam Eye Exam: EOMI, PERRL - ENT Exam ENT Exam: Mucous Membranes Moist - Respiratory Exam Respiratory Exam: Clear to Ausculation Bilateral. absent: Rales, Rhonchi, Wheezes - Cardiovascular Exam Cardiovascular Exam: REGULAR RHYTHM, +S1, +S2 - GI/Abdominal Exam GI & Abdominal Exam: Soft, Normal Bowel Sounds. absent: Tenderness - Extremities Exam Additional comments: Left foot and leg wrapped and splinted. s/p left calcaneal ORIF. Not currently tender. NO signs of surgical (Left medial lower leg) wound dehiscence with sutures in place. Right lower extremity no edema or tenderness. - Neurological Exam Neurological Exam: Alert, Awake, Oriented x3 - Psychiatric Exam Psychiatric exam: Anxious - Skin Skin Exam: Dry, Intact, Normal Color, Warm Please see assessment and plan above. Gabriel Luo D.O.
[2017-02-01] MEDS: Enoxaparin 40 mg Syringe SC SCH (18:42)
[2017-02-02 06:52] LABS: BASO # 0.1 K/uL (0.0-0.2); BASO % 0.7 % (0.0-2.0); EOS # 0.5 K/uL (0.0-0.7); EOS % 4.3 % (0.0-4.0); LYMPH # 1.8 K/uL (1.0-4.3); LYMPH % 15.5 % (20.0-40.0); MEAN CELL VOLUME 92.5 fL (80.0-94.0); MEAN CORPUSCULAR HGB CONC 33.5 g/dL (33.0-37.0); MEAN PLATELET VOLUME 7.2 fL (7.2-11.7); MONO # 1.2 K/uL (0.0-0.8); MONO % 10.2 % (0.0-10.0); RED CELL DISTRIBUTION WIDTH 12.9 % (11.5-14.5); WHITE BLOOD COUNT 11.7 K/uL (4.8-10.8)
[2017-02-02] MEDS: Lactated Ringer's 1,000 ML IV SCH ×3 (06:52→16:44)
[2017-02-02 07:19] LABS: CHLORIDE 100 mmol/L (98-107); POTASSIUM 3.9 mmol/L (3.6-5.2); SODIUM 136 mmol/L (132-148)
[2017-02-02 07:21] LABS: BILIRUBIN,TOTAL 0.7 mg/dL (0.2-1.3); GFR AFRICAN-AMERICAN > 60
[2017-02-02 07:22] LABS: ALB/GLOB RATIO 0.9 (1.0-2.1); ALKALINE PHOSPHATASE 75 U/L (38-126); ALT/SGPT 39 U/L (21-72); AST/SGOT 25 U/L (17-59); BLOOD UREA NITROGEN 8 mg/dL (9-20); CARBON DIOXIDE 29 mmol/L (22-30); GLUCOSE,RANDOM 89 mg/dL (75-110); PHOSPHOROUS 3.7 mg/dL (2.5-4.5); TOTAL PROTEIN 6.1 g/dL (6.3-8.3)
[2017-02-02 07:23] LABS: CALCIUM 8.6 mg/dl (8.6-10.4); MAGNESIUM 1.6 mg/dL (1.6-2.3)
[2017-02-02] MEDS: Pantoprazole 40 mg EC Tab PO SCH (09:39)
[2017-02-02] MEDS: Enoxaparin 40 mg Syringe SC SCH (09:40)
[2017-02-02] MEDS ORDERED: Bisacodyl 5mg EC Tab PO ONE (11:39)
--- NOTE | 2017-02-02 12:19 | CP.PCM.PN ---
Subjective - Date & Time of Evaluation Date of Evaluation: 02/02/17 Time of Evaluation: 12:17 - Subjective Subjective: 41 year old male was seen resting comfortably at bedside 3 day s/p Left calcaneal ORIF. He states that his pain is well controlled. NAD, AAOx3.Denies n/ v/f/c/sob/cp. Objective - Vital Signs/Intake and Output Vital Signs (last 24 hours): Temp Pulse Resp BP Pulse Ox 98.5 F 75 20 123/84 96 02/02/17 08:24 02/02/17 08:24 02/02/17 08:24 02/02/17 08:24 02/02/17 08:24 Intake and Output: 02/02/17 02/02/17 06:59 18:59 Intake Total 1600 Output Total 2600 Balance -1000 - Medications Medications: Current Medications Acetaminophen (Tylenol 325mg Tab) 650 mg PO Q6 PRN PRN Reason: Fever >100.4 F Alprazolam (Xanax) 0.5 mg PO TID PRN PRN Reason: Anxiety Last Admin: 01/30/17 19:02 Dose: 0.5 mg Clindamycin HCl (Cleocin) 150 mg PO Q6H [facility] Last Admin: 02/02/17 09:39 Dose: 150 mg Docusate Sodium (Colace) 100 mg PO BID [facility] Last Admin: 02/02/17 09:39 Dose: 100 mg Enoxaparin Sodium (Lovenox) 40 mg SC DAILY [facility] Last Admin: 02/02/17 09:40 Dose: 40 mg Escitalopram Oxalate (Lexapro) 10 mg PO HS [facility] Last Admin: 02/01/17 22:21 Dose: 10 mg Lactated Ringer's (Lactated Ringer's) 1,000 mls @ 150 mls/hr IV .Q6H40M [facility] Last Admin: 02/02/17 06:52 Dose: 150 mls/hr Ketorolac Tromethamine (Toradol) 15 mg IVP Q6 PRN PRN Reason: Pain, moderate (4-7) Last Admin: 02/01/17 23:52 Dose: 15 mg Ketorolac Tromethamine (Toradol) 30 mg IVP Q6 PRN PRN Reason: Pain, severe (8-10) Last Admin: 08/24/17 04:24 Dose: 30 mg Pantoprazole Sodium (Protonix Ec Tab) 40 mg PO DAILY [facility] Last Admin: 02/02/17 09:39 Dose: 40 mg Temazepam (Restoril) 30 mg PO HS PRN PRN Reason: Insomnia Last Admin: 01/30/17 00:46 Dose: 30 mg - Labs Labs: 02/02/17 06:44 02/02/17 06:44 PT 11.0 SECONDS (9.7-12.2) 01/29/17 20:31 INR 1.0 01/29/17 20:31 APTT 35 SECONDS (21-34) H 01/29/17 20:31 - Constitutional Appears: Well, Non-toxic, No Acute Distress - Extremities Exam Additional comments: dressing c/d/i to LLE CFT < 3 seconds to all digits on L pt is able to wiggles toes - Neurological Exam Neurological Exam: Alert, Awake, Oriented x3 - Psychiatric Exam Psychiatric exam: Normal Affect, Normal Mood Assessment and Plan - Assessment and Plan (Free Text) Assessment: 41 year old male 3 day s/p Left calcaneal ORIF Plan: patient examined and evaluated discussed with attending, Dr. Briseno chart, labs, vitals reviewed;afebrile, WBC 11.7 continue pain medication cont IV abx RICE to LLE patient to remain non-WB to LLE with crutches podiatry will continue to follow patient while in house patient to follow up in podiatry clinic upon D/C
--- NOTE | 2017-02-02 15:07 | CP.PCM.PN ---
<Papi Cabrera - Last Filed: 02/02/17 16:33> Subjective - Date & Time of Evaluation Date of Evaluation: 02/02/17 Time of Evaluation: 11:00 - Subjective Subjective: PGY-[address] Gabriel Luo Patient seen and examined at bedside. Patient reports feeling well. Patient denies fever, chills, headache, dizziness, chest pain, SOB, abdominal pain, dysuria. Patient has still not had a BM as of this morning. Objective - Vital Signs/Intake and Output Vital Signs (last 24 hours): Temp Pulse Resp BP Pulse Ox 98.5 F 75 20 123/84 96 02/02/17 08:24 02/02/17 08:24 02/02/17 08:24 02/02/17 08:24 02/02/17 08:24 Intake and Output: 02/02/17 02/02/17 06:59 18:59 Intake Total 1600 Output Total 2600 Balance -1000 - Medications Medications: Current Medications Acetaminophen (Tylenol 325mg Tab) 650 mg PO Q6 PRN PRN Reason: Fever >100.4 F Alprazolam (Xanax) 0.5 mg PO TID PRN PRN Reason: Anxiety Last Admin: 01/30/17 19:02 Dose: 0.5 mg Clindamycin HCl (Cleocin) 150 mg PO Q6H [facility] Last Admin: 02/02/17 09:39 Dose: 150 mg Docusate Sodium (Colace) 100 mg PO BID [facility] Last Admin: 02/02/17 09:39 Dose: 100 mg Enoxaparin Sodium (Lovenox) 40 mg SC DAILY [facility] Last Admin: 02/02/17 09:40 Dose: 40 mg Escitalopram Oxalate (Lexapro) 10 mg PO HS [facility] Last Admin: 02/01/17 22:21 Dose: 10 mg Lactated Ringer's (Lactated Ringer's) 1,000 mls @ 150 mls/hr IV .Q6H40M [facility] Last Admin: 02/02/17 06:52 Dose: 150 mls/hr Ketorolac Tromethamine (Toradol) 15 mg IVP Q6 PRN PRN Reason: Pain, moderate (4-7) Last Admin: 02/01/17 23:52 Dose: 15 mg Ketorolac Tromethamine (Toradol) 30 mg IVP Q6 PRN PRN Reason: Pain, severe (8-10) Last Admin: 02/02/17 04:24 Dose: 30 mg Pantoprazole Sodium (Protonix Ec Tab) 40 mg PO DAILY [facility] Last Admin: 02/02/17 09:39 Dose: 40 mg Temazepam (Restoril) 30 mg PO HS PRN PRN Reason: Insomnia Last Admin: 01/30/17 00:46 Dose: 30 mg - Labs Labs: 02/02/17 06:44 02/02/17 06:44 PT 11.0 SECONDS (9.7-12.2) 01/29/17 20:31 INR 1.0 01/29/17 20:31 APTT 35 SECONDS (21-34) H 01/29/17 20:31 - Constitutional Appears: No Acute Distress - Head Exam Head Exam: ATRAUMATIC, NORMAL INSPECTION, NORMOCEPHALIC - Eye Exam Eye Exam: EOMI, PERRL - ENT Exam ENT Exam: Mucous Membranes Moist - Respiratory Exam Respiratory Exam: Clear to Ausculation Bilateral. absent: Rales, Rhonchi, Wheezes - Cardiovascular Exam Cardiovascular Exam: REGULAR RHYTHM, +S1, +S2 - GI/Abdominal Exam GI & Abdominal Exam: Soft, Normal Bowel Sounds. absent: Tenderness - Extremities Exam Additional comments: Left leg and foot wrapped in splint. Dressing c/d/i No tenderness or pedal edema of right LE. - Neurological Exam Neurological Exam: Alert, Awake, Oriented x3 - Skin Skin Exam: Dry, Intact, Normal Color, Warm Assessment and Plan - Assessment and Plan (Free Text) Plan: Left Calcaneal fracture Dr. Briseno performed ORIF of left calcaneus on 01/30. Sutures to be removed within 14 days. foot radiographic IMPRESSION from 01/26/17: Acute displaced fracture in the calcaneus with suspected dislocation of the talocalcaneal joint. ankle radiographic IMPRESSION from 01/26/17: Soft tissue swelling. Comminuted displaced calcaneal fracture with intra-articular extension. CT 01/26: Comminuted calcaneal fracture. There is distraction of the major fracture fragments. Although this study is not diagnostic for Achilles tendon injury the Achilles tendon and insertion on the adjacent calcaneal fragment appears preserved. Preservation of talocalcaneal and talonavicular joint spaces. PT/OT eval and treatment Patient Non-WB for 6-8 weeks. Will need to use crutches in the meantime. Toradol 30 mg IV Q6 prn for severe pain Toradol 15 mg IV Q6 prn for moderate pain Anxiety and depression will continue home medication lexapro 10mg PO HS Dr. Santoro Psychiatry consult- help appreciated Insomnia Restoril 30 mg PO HS prn Prophylactic measure non WB to LLE with crutches protonix 40mg daily Incentive Spirometer Colace 100 mg PO BID Lovenox 40 mg SC daily 01/30: Per conversation with podiatry resident, patient will need to be non-WB for 6-8 weeks post op and will most likely be cleared for discharge by them tomorrow. He may follow up in the Podiatry Clinic at the [facility]. 01/31: Waiting on clearance from PT. Patient received popliteal nerve block last night without efficacy. Patient then placed on Dilaudid MILL TENDER with relief. However , today it was explained to the patient that he needs to avoid narcotics due to the nature of his pain. It was explained that anti-inflammatory medications to reduce inflammation should be the goal for his pain management. Patient agrees with this plan and wishes to avoid becoming dependent on narcotics. 02/01: Continued to work with PT. 02/02: Patient had first BM since surgery after being given 5 mg of Dulcolax this morning. Likely DC tomorrow after working with PT. Patient is to follow up this Monday in the podiatry clinic at the [facility]. Podiatry has left prescriptions in the chart: -Lovenox 40 mg SC daily #12 -Cipro 500 mg BID #20 -Percocet 5/325 mg 1-2 tabs PO Q6H prn. #[address] Emma Cabrera PGY-1 <Gabriel Luo - Last Filed: 02/02/17 18:15> Objective - Vital Signs/Intake and Output Vital Signs (last 24 hours): Temp Pulse Resp BP Pulse Ox 98.6 F 83 18 116/77 98 02/02/17 16:00 02/02/17 16:00 02/02/17 16:00 02/02/17 16:00 02/02/17 16:00 Intake and Output: 02/02/17 02/02/17 06:59 18:59 Intake Total 1600 1440 Output Total 2600 Balance -1000 1440 - Medications Medications: Current Medications Acetaminophen (Tylenol 325mg Tab) 650 mg PO Q6 PRN PRN Reason: Fever >100.4 F Alprazolam (Xanax) 0.5 mg PO TID PRN PRN Reason: Anxiety Last Admin: 01/30/17 19:02 Dose: 0.5 mg Clindamycin HCl (Cleocin) 150 mg PO Q6H [facility] Last Admin: 02/02/17 16:44 Dose: 150 mg Docusate Sodium (Colace) 100 mg PO BID [facility] Last Admin: 02/02/17 09:39 Dose: 100 mg Enoxaparin Sodium (Lovenox) 40 mg SC DAILY [facility] Last Admin: 02/02/17 09:40 Dose: 40 mg Escitalopram Oxalate (Lexapro) 10 mg PO HS [facility] Last Admin: 02/01/17 22:21 Dose: 10 mg Ketorolac Tromethamine (Toradol) 15 mg IVP Q6 PRN PRN Reason: Pain, moderate (4-7) Last Admin: 02/02/17 16:48 Dose: 15 mg Ketorolac Tromethamine (Toradol) 30 mg IVP Q6 PRN PRN Reason: Pain, severe (8-10) Last Admin: 02/02/17 04:24 Dose: 30 mg Pantoprazole Sodium (Protonix Ec Tab) 40 mg PO DAILY [facility] Last Admin: 02/02/17 09:39 Dose: 40 mg Temazepam (Restoril) 30 mg PO HS PRN PRN Reason: Insomnia Last Admin: 01/30/17 00:46 Dose: 30 mg - Labs Labs: 02/02/17 06:44 02/02/17 06:44 PT 11.0 SECONDS (9.7-12.2) 01/29/17 20:31 INR 1.0 01/29/17 20:31 APTT 35 SECONDS (21-34) H 01/29/17 20:31 Attending/Attestation - Attestation I have personally seen and examined this patient.: Yes I have fully participated in the care of the patient.: Yes I have reviewed all pertinent clinical information, including history, physical exam and plan: Yes
[2017-02-02 22:02] VITALS: RESP 20
[2017-02-03] MEDS: Lactated Ringer's 1,000 ML IV SCH ×2 (00:35→11:00)
[2017-02-03 06:44] LABS: CHLORIDE 99 mmol/L (98-107); POTASSIUM 3.8 mmol/L (3.6-5.2); SODIUM 137 mmol/L (132-148)
[2017-02-03 06:46] LABS: ALB/GLOB RATIO 0.9 (1.0-2.1); AST/SGOT 26 U/L (17-59); BILIRUBIN,TOTAL 0.8 mg/dL (0.2-1.3); CARBON DIOXIDE 29 mmol/L (22-30); GFR AFRICAN-AMERICAN > 60; TOTAL PROTEIN 6.3 g/dL (6.3-8.3)
[2017-02-03 06:47] LABS: ALKALINE PHOSPHATASE 78 U/L (38-126); ALT/SGPT 45 U/L (21-72); BLOOD UREA NITROGEN 7 mg/dL (9-20); CALCIUM 8.7 mg/dl (8.6-10.4); GLUCOSE,RANDOM 88 mg/dL (75-110); MAGNESIUM 1.6 mg/dL (1.6-2.3); PHOSPHOROUS 4.8 mg/dL (2.5-4.5)
[2017-02-03 06:52] LABS: BASO # 0.1 K/uL (0.0-0.2); BASO % 0.6 % (0.0-2.0); EOS # 0.6 K/uL (0.0-0.7); EOS % 5.4 % (0.0-4.0); HEMATOCRIT 31.4 % (35.0-51.0); LYMPH # 1.7 K/uL (1.0-4.3); LYMPH % 15.3 % (20.0-40.0); MEAN CELL VOLUME 91.7 fL (80.0-94.0); MEAN CORPUSCULAR HEMOGLOBIN 31.3 pg (27.0-31.0); MEAN CORPUSCULAR HGB CONC 34.1 g/dL (33.0-37.0); MEAN PLATELET VOLUME 7.2 fL (7.2-11.7); MONO # 1.2 K/uL (0.0-0.8); MONO % 10.2 % (0.0-10.0); RED CELL DISTRIBUTION WIDTH 12.6 % (11.5-14.5); WHITE BLOOD COUNT 11.3 K/uL (4.8-10.8)
[2017-02-03] MEDS: Pantoprazole 40 mg EC Tab PO SCH (10:07)
[2017-02-03] MEDS: Enoxaparin 40 mg Syringe SC SCH (10:07)
--- NOTE | 2017-02-03 12:05 | CP.PCM.PN ---
Subjective - Date & Time of Evaluation Date of Evaluation: 02/03/17 Time of Evaluation: 12:00 - Subjective Subjective: Hospitalist Progress Note Patient was seen and examined at 12:00 PM 02/03/17 41 year old male who was admitted for Left Calcaneal Fracture S/P falling down stairs. He underwent ORIF by Podiatry Team. He was seen by Physical Therapy Team to make sure that he is able to safely/effectively ambulate with crutches. He is to be nonweight bearing for 6 to 8 weeks. He has been cleared for discharge by both Podiatry and Physical Therapy - Constitutional Appears: No Acute Distress - Head Exam Head Exam: ATRAUMATIC, NORMAL INSPECTION, NORMOCEPHALIC - Eye Exam Eye Exam: EOMI, PERRL - ENT Exam ENT Exam: Mucous Membranes Moist - Respiratory Exam Respiratory Exam: Clear to Ausculation Bilateral. absent: Rales, Rhonchi, Wheezes - Cardiovascular Exam Cardiovascular Exam: REGULAR RHYTHM, +S1, +S2 - GI/Abdominal Exam GI & Abdominal Exam: Soft, Normal Bowel Sounds. absent: Tenderness - Extremities Exam Additional comments: Left foot and leg wrapped and splinted. s/p left calcaneal ORIF. Not currently tender. NO signs of surgical (Left medial lower leg) wound dehiscence with sutures in place. Right lower extremity no edema or tenderness. - Neurological Exam Neurological Exam: Alert, Awake, Oriented x3 - Psychiatric Exam Psychiatric exam: Anxious - Skin Skin Exam: Dry, Intact, Normal Color, Warm The following instructions were explained to patient and a copy provided to him upon discharge: 1). Please call the [facility] at [phone] to schedule an appointment with Podiatry Clinic to take place on Monday. Regardless of the time that you are given for the appointment, please make sure that you show up at 8 AM as whoever comes first is usually taken first. The [facility] is located on Floor [address] of [address] in [place], [place] 2). You were provided with the following prescriptions from Podiatry Team and please use as instructed: Lovenox 40 mg Subcutaneous 1x/day for 12 days Ciprofloxacin 500 mg, 1 tablet by mouth 2x/day (breakfast and dinner) for the next 10 days. As explained to you the Lovenox is to prevent blood clots after bone surgery. If you absolutely can not afford to purchase this medication then please make sure to take Aspirin 81 mg 1 tablet by mouth 2x/day until to do so otherwise by the Podiatry Clinic. You were shown how to inject the Lovenox by your Nurse Anastacia. 3). Please also have the following prescription filled that were provided to you by the Medicine Team: Lexapro 10 mg, 1 tablet by mouth 1x/day (breakfast), Disp #30, NO refills Restoril 30 mg, 1 tablet by mouth at bedtime ONLY NEEDED for sleep at night, Disp #30, NO refills You declined prescription for Xanax 4). Your left pain is controlled without the use of narcotics. Remember you are not supposed to be pain free and the pain level should be a manageable pain. If you are experiencing uncomfortable level of pain you may take Ibuprofen 200 mg, 3 tablets by mouth with food every 6 to 8 hours as needed. Please make sure that you are drinking plenty of water afterwards. 5). Please make sure that on Monday02/06/17 while you are at the Podiatry Clinic to schedule an appointment with the [facility] to help manage your medical care. Through them you will need follow up with Psychiatry for your Anxiety/Depression. 6). Please make sure that you do NOT bear weight on the Left Foot until you are cleared to do so by the Podiatry Team. 7). Please take care and be well. Gabriel Luo D.O. Objective - Vital Signs/Intake and Output Vital Signs (last 24 hours): Temp Pulse Resp BP Pulse Ox 99.2 F 71 20 115/74 96 02/03/17 08:06 02/03/17 08:06 02/03/17 08:06 02/03/17 08:06 02/03/17 08:06 Intake and Output: 02/03/17 02/03/17 06:59 18:59 Intake Total 1680 Output Total 900 Balance 780 - Medications Medications: Current Medications Acetaminophen (Tylenol 325mg Tab) 650 mg PO Q6 PRN PRN Reason: Fever >100.4 F Alprazolam (Xanax) 0.5 mg PO TID PRN PRN Reason: Anxiety Last Admin: 01/30/17 19:02 Dose: 0.5 mg Clindamycin HCl (Cleocin) 150 mg PO Q6H [facility] Last Admin: 02/03/17 10:07 Dose: 150 mg Docusate Sodium (Colace) 100 mg PO BID [facility] Last Admin: 02/03/17 10:07 Dose: 100 mg Enoxaparin Sodium (Lovenox) 40 mg SC DAILY [facility] Last Admin: 02/03/17 10:07 Dose: 40 mg Escitalopram Oxalate (Lexapro) 10 mg PO HS [facility] Last Admin: 02/02/17 21:55 Dose: 10 mg Lactated Ringer's (Lactated Ringer's) 1,000 mls @ 100 mls/hr IV .Q10H [facility] Last Admin: 02/03/17 00:35 Dose: 100 mls/hr Ketorolac Tromethamine (Toradol) 15 mg IVP Q6 PRN PRN Reason: Pain, moderate (4-7) Last Admin: 02/02/17 16:48 Dose: 15 mg Ketorolac Tromethamine (Toradol) 30 mg IVP Q6 PRN PRN Reason: Pain, severe (8-10) Last Admin: 02/03/17 02:12 Dose: 30 mg Pantoprazole Sodium (Protonix Ec Tab) 40 mg PO DAILY [facility] Last Admin: 02/03/17 10:07 Dose: 40 mg Temazepam (Restoril) 30 mg PO HS PRN PRN Reason: Insomnia Last Admin: 01/30/17 00:46 Dose: 30 mg - Labs Labs: 02/03/17 06:16 02/03/17 06:16 PT 11.0 SECONDS (9.7-12.2) 01/29/17 20:31 INR 1.0 01/29/17 20:31 APTT 35 SECONDS (21-34) H 01/29/17 20:31
--- NOTE | 2017-02-03 13:39 | CP.PCM.DIS ---
Provider - Provider Date of Admission: 01/29/17 21:00 Attending physician: Efren Bragg MD Primary care physician: none Consults: Podiatry: Finn Psych: Yvan Time Spent in preparation of Discharge (in minutes): 60 Hospital Course - Lab Results Lab Results: Most Recent Lab Values WBC 11.3 K/uL (4.8-10.8) H 02/03/17 06:16 RBC 3.42 Mil/uL (4.40-5.90) L 02/03/17 06:16 Hgb 10.7 g/dL (12.0-18.0) L 02/03/17 06:16 Hct 31.4 % (35.0-51.0) L 02/03/17 06:16 MCV 91.7 fL (80.0-94.0) 02/03/17 06:16 MCH 31.3 pg (27.0-31.0) H 02/03/17 06:16 MCHC 34.1 g/dL (33.0-37.0) 02/03/17 06:16 RDW 12.6 % (11.5-14.5) 02/03/17 06:16 Plt Count 435 K/uL (130-400) H 02/03/17 06:16 MPV 7.2 fL (7.2-11.7) 02/03/17 06:16 Neut % (Auto) 68.5 % (50.0-75.0) 02/03/17 06:16 Lymph % (Auto) 15.3 % (20.0-40.0) L 02/03/17 06:16 [place] % (Auto) 10.2 % (0.0-10.0) H 02/03/17 06:16 Eos % (Auto) 5.4 % (0.0-4.0) H 02/03/17 06:16 Baso % (Auto) 0.6 % (0.0-2.0) 02/03/17 06:16 Neut # 7.8 K/uL (1.8-7.0) H 02/03/17 06:16 Lymph # 1.7 K/uL (1.0-4.3) 02/03/17 06:16 [place] # 1.2 K/uL (0.0-0.8) H 02/03/17 06:16 Eos # 0.6 K/uL (0.0-0.7) 02/03/17 06:16 Baso # 0.1 K/uL (0.0-0.2) 02/03/17 06:16 Neutrophils % (Manual) 86 % (50-75) H 02/01/17 06:54 Band Neutrophils % 1 % (0-2) 02/01/17 06:54 Lymphocytes % (Manual) 8 % (20-40) L 02/01/17 06:54 Monocytes % (Manual) 4 % (0-10) 02/01/17 06:54 Eosinophils % (Manual) 1 % (0-4) 02/01/17 06:54 Platelet Estimate Normal (NORMAL) 02/01/17 06:54 RBC Morphology Normal 01/31/17 06:39 Hypochromasia (manual) Slight 02/01/17 06:54 Poikilocytosis (manual Slight 02/01/17 06:54 Anisocytosis (manual) Slight 02/01/17 06:54 PT 11.0 SECONDS (9.7-12.2) 01/29/17 20:31 INR 1.0 01/29/17 20:31 APTT 35 SECONDS (21-34) H 01/29/17 20:31 Sodium 137 mmol/L (132-148) 02/03/17 06:16 Potassium 3.8 mmol/L (3.6-5.2) 02/03/17 06:16 Chloride 99 mmol/L (98-107) 02/03/17 06:16 Carbon Dioxide 29 mmol/L (22-30) 02/03/17 06:16 Anion Gap 13 (10-20) 02/03/17 06:16 BUN 7 mg/dL (9-20) L 02/03/17 06:16 Creatinine 0.9 MG/DL (0.8-1.5) 02/03/17 06:16 Est GFR ( Amer) > 60 02/03/17 06:16 Est GFR (Non-Af Amer) > 60 02/03/17 06:16 POC Glucose (mg/dL) 127 mg/dL (65-110) H 02/01/17 21:07 Random Glucose 88 mg/dL (75-110) 02/03/17 06:16 Calcium 8.7 mg/dl (8.6-10.4) 02/03/17 06:16 Phosphorus 4.8 mg/dL (2.5-4.5) H 02/03/17 06:16 Magnesium 1.6 mg/dL (1.6-2.3) 02/03/17 06:16 Total Bilirubin 0.8 mg/dL (0.2-1.3) 02/03/17 06:16 AST 26 U/L (17-59) 02/03/17 06:16 ALT 45 U/L (21-72) 02/03/17 06:16 Alkaline Phosphatase 78 U/L (38-126) 02/03/17 06:16 Total Protein 6.3 g/dL (6.3-8.3) 02/03/17 06:16 Albumin 3.0 g/dL (3.5-5.0) L 02/03/17 06:16 Globulin 3.3 gm/dL (2.2-3.9) 02/03/17 06:16 Albumin/Globulin Ratio 0.9 (1.0-2.1) L 02/03/17 06:16 Blood Type O POSITIVE 01/29/17 20:31 Antibody Screen Negative 01/29/17 20:31 - Hospital Course Hospital Course: Patient is a 41 year old male with past medical history anxiety, depression and insomnia who reports a fall on 01/17/17. Patient states he was in [place] on his way home after work when he fell down 10-15 steps and twisted his left foot. Patient states he could not put weight on the foot following the fall and had assistance to the subway to get back home. Patient states he placed ice on his foot and rested it and avoided placing weight on the foot. Patient states he started a new job and does not have health insurance yet so he tried to wait and see if the foot improved. Patient states he did not see any improvement and came to the ER on 01/26. Xrays taken on that day indicated a calcaneal fracture and suspected dislocation of the talocalcaneal joint. Patient was seen by podiatry at that time and was told to return to the ED today for a planned ORIF of the left calcaneus for 01/30/17. Patient states he has been taking Aleve and Advil PM for pain with some relief. Patient reports intact sensation to the foot and improved pain since the splinting on 01/26. Patient had an acute displaced fracture in the left calcaneus with suspected dislocation of the talocalcaneal joint with soft tissue swelling as per imaging on 01/26/17. ORIF performed on left calcaneus on 01/30. Successful fixation was confirmed by X-ray shortly after procedure. Sutures to be removed POD #14 as outpatient. 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 Patient had BM on POD #3 and was medically cleared for discharge. Patient was seen and evaluated by PT on POD #1 and was cleared for discharge by them on POD #4. - Date & Time of H&P Date of H&P: 01/29/17 Time of H&P: 21:46 Discharge Exam - Head Exam Head Exam: ATRAUMATIC, NORMAL INSPECTION, NORMOCEPHALIC - Eye Exam Eye Exam: EOMI - ENT Exam ENT Exam: Mucous Membranes Moist - Respiratory Exam Respiratory Exam: NORMAL BREATHING PATTERN, UNREMARKABLE - Cardiovascular Exam Cardiovascular Exam: REGULAR RHYTHM - GI/Abdominal Exam GI & Abdominal Exam: Normal Bowel Sounds, Soft. absent: Distended, Tenderness - Extremities Exam Additional comments: Cast on R. Leg - Neurological Exam Neurological exam: Alert, Oriented x3 - Psychiatric Exam Psychiatric exam: Normal Affect, Normal Mood - Skin Skin Exam: Dry, Intact, Normal Color, Warm Discharge Plan - Discharge Medications Prescriptions: Bisacodyl [Ducolax] 5 mg PO DAILY #10 ect Escitalopram [Lexapro] 20 mg PO DAILY #30 tab Temazepam [Restoril] 30 mg PO HS PRN #30 cap PRN Reason: Insomnia - Follow Up Plan Condition: GOOD Disposition: HOME/ ROUTINE Instructions: Crutch Instructions (DC), ORIF of a Calcaneus Fracture (DC), ORIF (DC), Non Weight Bearing Activity (DC) Additional Instructions: The following instructions were explained to patient and a copy provided to him upon discharge: 1). Please call the [facility] at [phone] to schedule an appointment with Podiatry Clinic to take place on Monday. Regardless of the time that you are given for the appointment, please make sure that you show up at 8 AM as whoever comes first is usually taken first. The [facility] is located on Floor [address] of [address] [place], [place] 2). You were provided with the following prescriptions from Podiatry Team and please use as instructed: Lovenox 40 mg Subcutaneous 1x/day for 12 days Ciprofloxacin 500 mg, 1 tablet by mouth 2x/day (breakfast and dinner) for the next 10 days. As explained to you the Lovenox is to prevent blood clots after bone surgery. If you absolutely can not afford to purchase this medication then please make sure to take Aspirin 81 mg 1 tablet by mouth 2x/day until to do so otherwise by the Podiatry Clinic. You were shown how to inject the Lovenox by your Nurse Anastacia. 3). Please also have the following prescription filled that were provided to you by the Medicine Team: Lexapro 10 mg, 1 tablet by mouth 1x/day (breakfast), Disp #30, NO refills Restoril 30 mg, 1 tablet by mouth at bedtime ONLY NEEDED for sleep at night, Disp #30, NO refills You declined prescription for Xanax 4). Your left pain is controlled without the use of narcotics. Remember you are not supposed to be pain free and the pain level should be a manageable pain. If you are experiencing uncomfortable level of pain you may take Ibuprofen 200 mg, 3 tablets by mouth with food every 6 to 8 hours as needed. Please make sure that you are drinking plenty of water afterwards. 5). Please make sure that on Monday02/06/17 while you are at the Podiatry Clinic to schedule an appointment with the [facility] to help manage your medical care. Through them you will need follow up with Psychiatry for your Anxiety/Depression. 6). Please make sure that you do NOT bear weight on the Left Foot until you are cleared to do so by the Podiatry Team. 7). Please take care and be well. Referrals: [facility] at [facility] [Outside]
--- NOTE | 2017-02-03 13:41 | CP.PCM.PN ---
Subjective - Date & Time of Evaluation Date of Evaluation: 02/03/17 Time of Evaluation: 11:10 - Subjective Subjective: Podiatry progress note for Dr. Briseno 41 year old male was seen resting comfortably at bedside 4 days s/p left calcaneal ORIF. He states that his pain is well controlled by the Toradol and he is feeling much better today. Patient states he is likely going home today and is aware that he must come to clinic on Monday to follow up. Dressing and splint to LLE is clean dry and intact at time of visit. Pt currently in NAD, AAOx3.Denies F/C/N/V/SOB. Objective - Vital Signs/Intake and Output Vital Signs (last 24 hours): Temp Pulse Resp BP Pulse Ox 99.2 F 71 20 115/74 96 02/03/17 08:06 02/03/17 08:06 02/03/17 08:06 02/03/17 08:06 02/03/17 08:06 Intake and Output: 02/03/17 02/03/17 06:59 18:59 Intake Total 1680 Output Total 900 Balance 780 - Medications Medications: Current Medications Acetaminophen (Tylenol 325mg Tab) 650 mg PO Q6 PRN PRN Reason: Fever >100.4 F Alprazolam (Xanax) 0.5 mg PO TID PRN PRN Reason: Anxiety Last Admin: 01/30/17 19:02 Dose: 0.5 mg Clindamycin HCl (Cleocin) 150 mg PO Q6H [facility] Last Admin: 02/03/17 10:07 Dose: 150 mg Docusate Sodium (Colace) 100 mg PO BID [facility] Last Admin: 02/03/17 10:07 Dose: 100 mg Enoxaparin Sodium (Lovenox) 40 mg SC DAILY [facility] Last Admin: 02/03/17 10:07 Dose: 40 mg Escitalopram Oxalate (Lexapro) 10 mg PO HS [facility] Last Admin: 02/02/17 21:55 Dose: 10 mg Lactated Ringer's (Lactated Ringer's) 1,000 mls @ 100 mls/hr IV .Q10H [facility] Last Admin: 02/03/17 11:00 Dose: 100 mls/hr Ketorolac Tromethamine (Toradol) 15 mg IVP Q6 PRN PRN Reason: Pain, moderate (4-7) Last Admin: 02/02/17 16:48 Dose: 15 mg Ketorolac Tromethamine (Toradol) 30 mg IVP Q6 PRN PRN Reason: Pain, severe (8-10) Last Admin: 02/03/17 02:12 Dose: 30 mg Pantoprazole Sodium (Protonix Ec Tab) 40 mg PO DAILY [facility] Last Admin: 02/03/17 10:07 Dose: 40 mg Temazepam (Restoril) 30 mg PO HS PRN PRN Reason: Insomnia Last Admin: 01/30/17 00:46 Dose: 30 mg - Labs Labs: 02/03/17 06:16 02/03/17 06:16 PT 11.0 SECONDS (9.7-12.2) 01/29/17 20:31 INR 1.0 01/29/17 20:31 APTT 35 SECONDS (21-34) H 01/29/17 20:31 - Constitutional Appears: Well, Non-toxic, No Acute Distress - Extremities Exam Additional comments: Dressing and splint are C/D/I to LLE CFT < 3 seconds to all digits on L foot Pt is able to wiggle all toes - Neurological Exam Neurological Exam: Alert, Awake, Oriented x3 - Psychiatric Exam Psychiatric exam: Normal Affect, Normal Mood Assessment and Plan - Assessment and Plan (Free Text) Assessment: 41 year old male 4 days s/p Left calcaneal ORIF Plan: Patient examined and evaluated Discussed plan with attending, Dr. Briseno Chart, labs, vitals reviewed: afebrile, WBC 11.3 Pt to be D/C today home with Ciprofloxacin for 10 day antibiotic course Patient to remain non-WB to LLE with crutches Pt informed that any continued pain can be managed by Ibuprofen 200mg 2-3 tablets by mouth every 4-6 hours or as needed Patient to follow up in podiatry clinic on Tuesday 02/06 following D/C
[2017-02-03 15:59] VITALS: BP 132/83; PULSE 77; TEMP 98.2
[2017-02-04 10:34] VITALS: O2SAT 97
== END 2017-02-03 18:40 | disposition home or self-care (01) | DRG 504 ==
LOC: C.ER 19:33 → C.9E 21:00 → C.6T 22:43
PROVIDERS: ADMIT Family Medicine; ATTEND Family Medicine
PROC: 0QSM04Z Reposition Left Tarsal with Internal Fixation Device, Open Approach (ICD-10-PCS; principal; 2017-01-30 12:45)
DX: S92.062A Displaced intraarticular fracture of left calcaneus, initial encounter for closed fracture (principal); F30.9 Manic episode, unspecified; W10.9XXA Fall (on) (from) unspecified stairs and steps, initial encounter; F41.9 Anxiety disorder, unspecified; G47.00 Insomnia, unspecified; F17.210 Nicotine dependence, cigarettes, uncomplicated; F90.9 Attention-deficit hyperactivity disorder, unspecified type

== ENCOUNTER 2017-02-17 20:20 | Emergency (ER) | payer SELFPAY ==
--- NOTE | 2017-02-17 21:16 | C.PDOC ---
History Of Present Illness 41 y/o male presents c/o left heel pain with foul smelling discharge frrm wound ; pt is 2 weeks s/p surgery for calcaneal heel fracture. Time Seen by Provider: 02/17/17 20:55 Chief Complaint (Nursing): Lower Extremity Problem/Injury History Per: Patient History/Exam Limitations: no limitations Onset/Duration Of Symptoms: Days Severity: Severe Pain Scale Rating Of: 8 Recent travel outside of the [place]: No Past Medical History Reviewed: Historical Data, Nursing Documentation, Vital Signs Vital Signs: Last Vital Signs Temp 98.1 F 02/17/17 22:41 Pulse 82 02/17/17 22:41 Resp 16 02/17/17 22:41 BP 154/84 H 02/17/17 22:41 Pulse Ox 100 02/18/17 00:02 - Medical History PMH: Anxiety, Depression Other Surgeries: calcaneal heel fx surgically repaired - [facility] Procedures REPOSITION LEFT TARSAL WITH INT FIX, OPEN APPROACH (01/29/17) Family History: States: Unknown Family Hx - Social History Hx Alcohol Use: No Hx Substance Use: No - Immunization History Hx Tetanus Toxoid Vaccination: Yes Hx Influenza Vaccination: Yes Hx Pneumococcal Vaccination: Yes Review Of Systems Constitutional: Negative for: Fever, Chills Musculoskeletal: Positive for: Foot Pain (left) Skin: Positive for: Other (discharge from wound). Negative for: Rash Neurological: Negative for: Weakness, Numbness Physical Exam - Physical Exam Appears: Non-toxic, Other (uncomfortable) Skin: Warm, Dry, Other (left foot with sutures to heel area, yellowish foul smelling discharge, no erythema, mild swelling. no warmth. ) Extremity: Tenderness (left foot), Swelling (left foot) Pulses: Left Dorsalis Pedis: Normal Neurological/Psych: Oriented x3, Normal Speech, Normal Cognition ED Course And Treatment - Laboratory Results Result Diagrams: 02/17/17 21:40 02/17/17 21:40 O2 Sat by Pulse Oximetry: 100 (room air ) Medical Decision Making Medical Decision Making: discussed with podiatry resident' he is requesting labs and xray and will come see pt in the ED 12 a pt seen by podiatry resident; dressing changed, splint applied, one dose of iv cipro in ed requested and pt to go home with another 10 days of iv cipro and f/u podiatry Dr Briseno on Monday Disposition Counseled Patient/Family Regarding: Studies Performed, Diagnosis, Need For Followup, Rx Given - Disposition Referrals: Gale Briseno DPM [Staff Provider] - Disposition: HOME/ ROUTINE Disposition Time: 23:59 Condition: IMPROVED Additional Instructions: Do not bear weight on left foot. Follow up with Dr Briseno on MondayFeb 20 as scheduled. Continue taking antibiotics as prescribed. Keep foot elevated when possible. Continue with Tylenol and Motrin for pain. Prescriptions: Ciprofloxacin HCl [Cipro] 500 mg PO BID #20 tablet Instructions: Wound Infection (ED) Forms: [employer] (Amharic), General Discharge Instructions - Clinical Impression Clinical Impression: Wound infection after surgery - PA / IT SECURITY ENGINEER / Resident Statement MD/DO has reviewed & agrees with the documentation as recorded. - Scribe Statement The provider has reviewed the documentation as recorded by the Scribe
[2017-02-17 21:48] LABS: BASO # 0.1 K/uL (0.0-0.2); BASO % 1.1 % (0.0-2.0); EOS # 0.4 K/uL (0.0-0.7); EOS % 4.4 % (0.0-4.0); HEMATOCRIT 38.7 % (35.0-51.0); LYMPH % 20.3 % (20.0-40.0); MEAN CELL VOLUME 91.1 fL (80.0-94.0); MEAN CORPUSCULAR HEMOGLOBIN 31.3 pg (27.0-31.0); MEAN CORPUSCULAR HGB CONC 34.3 g/dL (33.0-37.0); MEAN PLATELET VOLUME 6.8 fL (7.2-11.7); MONO # 0.8 K/uL (0.0-0.8); MONO % 8.1 % (0.0-10.0); RED CELL DISTRIBUTION WIDTH 13.3 % (11.5-14.5); WHITE BLOOD COUNT 9.9 K/uL (4.8-10.8)
[2017-02-17 21:58] LABS: CHLORIDE 104 mmol/L (98-107); POTASSIUM 4.9 mmol/L (3.6-5.2); SODIUM 139 mmol/L (132-148)
[2017-02-17 22:00] LABS: GFR AFRICAN-AMERICAN > 60
[2017-02-17 22:01] LABS: ALB/GLOB RATIO 1.2 (1.0-2.1); ALKALINE PHOSPHATASE 88 U/L (38-126); ALT/SGPT 64 U/L (21-72); AST/SGOT 42 U/L (17-59); BILIRUBIN,TOTAL 0.6 mg/dL (0.2-1.3); BLOOD UREA NITROGEN 18 mg/dL (9-20); CARBON DIOXIDE 21 mmol/L (22-30); GLUCOSE,RANDOM 81 mg/dL (75-110); TOTAL PROTEIN 8.2 g/dL (6.3-8.3)
[2017-02-17] MEDS ORDERED: Silver Sulfadiazine 1% Cream (20 gm) ONE (22:27)
[2017-02-17 22:42] VITALS: BP 154/84; PULSE 82; RESP 16; TEMP 98.1
[2017-02-17] MEDS ORDERED: Ciprofloxacin 400mg/200ml D5W 400 MG/200 ML BAG IVPB STA (22:48)
[2017-02-17] MEDS ORDERED: Ciprofloxacin 400mg/200ml D5W 400 MG/200 ML BAG IVPB ONE (22:55)
--- NOTE | 2017-02-17 23:52 | CP.PCM.CON ---
History of Present Illness - History of Present Illness History of Present Illness: 41 y/o male with PMHx of anxiety, depression, insominia, ADHD presents to ED 2.5 weeks s/p open reduction and internal fixation of displaced calcaneal fracture on the left foot, complaining of pain, swelling and mild drainage. Patient states that the pain started about a week ago but has been progressively getting better. Patient rates his pain as 4/10 on a VAS now. Patient states that he has been taking motrin at home for the pain which helps him very little. Patient states that he has been taking antibiotics and blood thinners as prescribed. Patient states that he followed up in the podiatry clinic with Dr. Briseno who advised him to keep the posterior splint on and not to put any pressure on the left foot and to use crutches. Patient states that he has not been following the instructions and has put his weight on it. Patient also states that he was advised to not get the left leg/foot wet in the shower but agrees to not being compliant with that as well. Patient denies of any pain in the calf today. Patient also denies of any recent F/N/V/C/SOB/CP. Patient denies of any other pedal complains at this time. PMHx: Anxiety, Depression, Insomnia, ADHD PSHx: Left foot surgery Allergies: Penicillins SHx: Agrees to smoking cigarets, denies of any EtOH use or illicit drug usage. Review of Systems - Constitutional Constitutional: As Per HPI Past Patient History - Infectious Disease Hx of Infectious Diseases: None - Past Medical History & Family History Past Medical History?: Yes - Past Social History Smoking Status: Current Some Days Smoker - CARDIAC Hx Cardiac Disorders: No - PULMONARY Hx Respiratory Disorders: No - NEUROLOGICAL Hx Neurological Disorder: No - HEENT Hx HEENT Problems: No - RENAL Hx Chronic Kidney Disease: No - ENDOCRINE/METABOLIC Hx Endocrine Disorders: Yes Other/Comment: Hx of hypoglycemia - HEMATOLOGICAL/ONCOLOGICAL Hx Blood Disorders: No - INTEGUMENTARY Hx Dermatological Problems: No - MUSCULOSKELETAL/RHEUMATOLOGICAL Hx Musculoskeletal Disorders: Yes Hx Falls: Yes (Fell down stairs Jan.17) - GASTROINTESTINAL Hx Gastrointestinal Disorders: No - GENITOURINARY/GYNECOLOGICAL Hx Genitourinary Disorders: No - PSYCHIATRIC Hx Anxiety: Yes Hx Depression: Yes Hx Substance Use: No - SURGICAL HISTORY Hx Surgeries: No - ANESTHESIA Hx Anesthesia: No Meds Allergies/Adverse Reactions: Allergies Allergy/AdvReac Type Severity Reaction Status Date / Time Penicillins Allergy Severe ANAPHYLAXIS Verified 02/17/17 20:48 - Medications Medications: Current Medications Ciprofloxacin (Cipro 400mg/200ml Dsw) 400 mg in 200 mls @ 133 mls/hr IVPB STAT STA Stop: 02/18/17 00:18 Last Admin: 02/17/17 23:02 Dose: 133 mls/hr Physical Exam - Constitutional Appears: Well, Non-toxic, No Acute Distress - Extremities Exam Additional comments: Bilateral LE exam: VASC: DP/PT pulses are palpable 2/4 bilaterally, TG: warm to cool bilaterally from proximal to distal, Cap Refill: < 3 sec to all digits, moderate pitting edema noted on the posterior and lateral heel on the left foot DERM: Surgical site (L incision) on the lateral aspect of the foot appears to be well coapted on the most proximal end as well as the distal end, dehiscence noted near the 90 degree angle of the L incision where surtures are lose, at the open site, wound bed is very fibrotic with minimal purulent/serous drainage , the edges of the incision site is very macerated and diffuse erythema noted on the periphery, the wound site probes to the hardware on the calcaneous, no malodor, Surgical suture intact on the plantar heel, no other open lesions noted , hyperkeratotic skin noted on the plantar heel NEURO: protective sensation intact via Ipswitch 4/4 bilaterally ORTHO: Active and passive ROM is intact at the ankle joint with no pain, no pain on palpation of the surgical site, no pain on palpation of the calf bilaterally - Neurological Exam Neurological exam: Alert, Oriented x3 - Psychiatric Exam Psychiatric exam: Normal Affect, Normal Mood Results - Vital Signs Recent Vital Signs: Last Vital Signs Temp 98.1 F 02/17/17 22:41 Pulse 82 02/17/17 22:41 Resp 16 02/17/17 22:41 BP 154/84 H 02/17/17 22:41 Pulse Ox 98 02/17/17 22:41 - Labs Result Diagrams: 02/17/17 21:40 02/17/17 21:40 Labs: Laboratory Results - last 24 hr 02/17/17 02/17/17 21:40 21:40 WBC 9.9 RBC 4.25 L Hgb 13.3 D Hct 38.7 MCV 91.1 MCH 31.3 H MCHC 34.3 RDW 13.3 Plt Count 532 H MPV 6.8 L Neut % (Auto) 66.1 Lymph % (Auto) 20.3 [place] % (Auto) 8.1 Eos % (Auto) 4.4 H Baso % (Auto) 1.1 Neut # 6.6 Lymph # 2.0 [place]ac # 0.8 Eos # 0.4 Baso # 0.1 Sodium 139 Potassium 4.9 Chloride 104 Carbon Dioxide 21 L Anion Gap 19 BUN 18 Creatinine 0.8 Est GFR ( Amer) > 60 Est GFR (Non-Af Amer) > 60 Random Glucose 81 Calcium 9.0 Total Bilirubin 0.6 AST 42 ALT 64 Alkaline Phosphatase 88 Total Protein 8.2 Albumin 4.4 Globulin 3.7 Albumin/Globulin Ratio 1.2 Assessment & Plan - Assessment and Plan (Free Text) Assessment: 41 y/o male seen and evaluated in ED 2.5 weeks s/p open reduction and internal fixation of displaced calcaneal fracture on the left foot for pain and swelling secondary to the open wound. Plan: Patient seen and evaluated Patient discussed in details with attending Dr. Briseno Labs, vitals and charts reviewed (Patient is afebrile and WBC @ 9.9) X-rays taken/reviewed: -Reduction of the fracture appears to be in good alignment with hardware intact Surgical sutures removed from the site where they do not serve any purpose at this time Surgical site and wound cleaned with saline Silvadine applied to the surgical site and on the wound bed, betadine applied to the evangelina-wound area and betadine soaked 4x4 applied to the surgical site, dressed using kerlix and RICKIE Patient placed back in a new posterior splint Patient was advised multiple times to prevent from any form of weightbearing to the left LE and to use the crutches at all times Patient advised to continue taking his abx as advised and educated that he will be given more to take home when he is discharged Patient educated not to get the dressing wet Patient educated to follow up in podiatry clinic on Monday Patient educated to prevent smoking while the fracture is healing Patient demonstrated verbal understanding and provided verbal agreement Thank you for the podiatry consult, podiatry will follow up with the patient on Monday in the clinic - Date & Time Date: 02/18/17 Time: 10:10
[2017-02-18 00:01] VITALS: O2SAT 100
--- NOTE | 2017-02-18 11:22 | RAD ---
PROCEDURE: Radiographs of the left calcaneus/hindfoot. HISTORY: post op drainage from wound COMPARISON: None available. TECHNIQUE: Frontal and lateral radiographs of the calcaneus. FINDINGS: Status post ORIF comminuted calcaneal fracture. No new fracture identified. No periosteal reaction or osseous erosion appreciated. Hardware appears intact. No change in position of hardware compared to examination of 01/30/2017. IMPRESSION: ORIF left comminuted calcaneal fracture. No significant change from 01/30/2017.
== END 2017-02-18 00:27 | disposition home or self-care (01) ==
LOC: C.ER 20:20
DX: T81.4XXA Infection following a procedure, initial encounter (principal)
CPT/HCPCS: 29515; 73650; 80053; 85025; 96365; 99283; J0744

== ENCOUNTER 2017-02-28 07:56 | Day surgery (SDC) | payer OTHER, SELFPAY ==
[2017-02-28] MEDS ORDERED: Propofol 10 mg/ml Inj (20 ML) ONE (08:31)
[2017-02-28] MEDS ORDERED: Midazolam 2 MG/2 ML VIAL ONE (08:31)
[2017-02-28] MEDS ORDERED: Lidocaine 1% PF (5ml) Amp INJ ONE (08:31)
[2017-02-28] MEDS ORDERED: Lactated Ringer's 1,000 ML IV ONE ×2 (09:00→11:30)
[2017-02-28] MEDS ORDERED: HYDROmorphone 0.5 mg/0.5 ml ISec IVP PRN ×2 (09:06→11:11)
[2017-02-28] MEDS ORDERED: Lidocaine 2% Inj (20ml) ONE (09:52)
[2017-02-28] MEDS ORDERED: Bupivacaine 0.5% Inj(30mL) ONE (09:52)
[2017-02-28] MEDS ORDERED: Clindamycin 600mg/50ml NS 600 MG/50 ML BAG IVPB ONE (09:53)
--- NOTE | 2017-02-28 10:52 | PCM.SURG1 ---
Surgeon's Initial Post Op Note - Surgeon's Notes Surgeon: Dr. Gale Briseno DPM Composite Worker: Dr. Ghulam Albarado DPM PGY-1 Type of Anesthesia: IV Sedation, Local Pre-Operative Diagnosis: left foot chronic nonhealing wound Operative Findings: see dictation; materials 2-0, 3-0 prolene, decellularized dermis full thickness graft, UZIEL wound vac, 20cc of 1:1 mixture of 2% lidocaine plain and .5% marcaine plain Post-Operative Diagnosis: left foot chronic non healing wound Operation Performed: left wound debridement with application of graft and wound vac Specimen/Specimens Removed: none Estimated Blood Loss: EBL {In ML}: 15 Blood Products Given: N/A Drains Used: Wound Vac Post-Op Condition: Good Date of Surgery/Procedure: 02/28/17 Time of Surgery/Procedure: 08:45
--- NOTE | 2017-02-28 11:01 | CP.SDSHP ---
Same Day Surgery H & P - History Proposed Procedure: left foot wound debridement and/or application of wound vac and graft Pre-Op Diagnosis: left foot wound non healing chronic - Allergies Allergies: Allergies Penicillins Allergy (Severe, Verified 02/17/17 20:48) ANAPHYLAXIS - Physical Exam Vital Signs: Vital Signs 02/28/17 08:59 Temperature 97.1 F L Pulse Rate 77 Respiratory 20 Rate Blood Pressure 125/83 O2 Sat by Pulse 96 Oximetry Mental Status: Alert & Oriented x3 - Impression Impression: Patient was seen and examined in SDS. Pt NPO status was confirmed. All Pre-op testing and clearance was in the chart. Pt has exhausted all conservative treatment at this time and is opting for surgical intervention. Pt was explained procedure and post-operative course. All pt's questions were answered to satisfication. No guarantees were made. Pt understands all risks, benefits, and complications of procedure. Patient has been non compliant and WB to left lower extremity in posterior splint s/p 3 weeks left ORIF calcaneus fracture. Patient strictly instructed to NWB in posterior splint with crutches. Patient educated on compliance and the importance of strictly following instructions s/p left wound debridement. Pt will followup with Dr. Briseno in 1 week Short Stay Discharge - Short Stay Discharge Follow-up: Patient was evaluated bedside in recovery s/p surgical procedure After surgical procedure patient in NAD Capillary refill time <3 seconds and NVSI intact Patient denies complaints at this time Post operative instructioins and plan of care explained to the patient at length Patient instructed to strictly non weightbear to the left lower extremity with crutches. Patient advised to keep to the dressing c/d/i. Do not remove the dressing. Wound Vac education provided. Advised to not touch UZIEL box adhered to the posterior splint. Patient has history of noncompliance. Patient educated of compliance and importance of adhering to treatment plans Patient stable for DC per podiatric surgery Patient given script for Tylenol #3 for pain. Instructed on use. Patient given script for two antibiotics, Clindamycin and Ciprofloxacin 500mg. Instructed on use. Patient will followup with Dr. Briseno in 1 week Instructions: Clindamycin (By mouth), Ciprofloxacin (By mouth), Analgesic/ Antihistamine/Decongestant (By mouth), RICE Therapy (GEN) Additional Instructions (Diet, Activity): Patient in good/stable condition for discharge home. Pt to resume medications per medical reconciliation. Resume regular diet. Please keep dressing clean, dry and intact to surgical site, use plastic bag over bandage for showering, patient to keep the dressing on at all time Patient to be non weight bearing to the left lower extremity in crutches. Call clinic if you have signs of infection (redness, swelling, malodor) Please make an appointment to see Dr. Briseno in office/clinic within 1 week for post-op check. Progress Note/Discharge Note with Instructions: Patient in good/stable condition for discharge home. Pt to resume medications per medical reconciliation. Resume regular diet. Please keep dressing clean, dry and intact to surgical site, use plastic bag over bandage for showering, patient to keep the dressing on at all time Patient to be non weight bearing to the left lower extremity in crutches. Call clinic if you have signs of infection (redness, swelling, malodor) Please make an appointment to see Dr. Briseno in office/clinic within 1 week for post-op check.
[2017-02-28 12:40] VITALS: BP 129/90; PULSE 65; RESP 13; TEMP 97.6; O2SAT 100
--- NOTE | 2017-03-03 05:31 | OP ---
PROCEDURE DATE: 02/28/2017 PREOPERATIVE DIAGNOSIS: Left foot chronic nonhealing wound. POSTOPERATIVE DIAGNOSIS: Left foot chronic nonhealing wound. NAME OF PROCEDURE: Left wound debridement with skin graft and wound vacuum SURGEON: Gale Briseno DPM DOOR PERSON: Ghulam Albarado DPM, PGY1. TYPE OF ANESTHESIA: IV sedation with local. ANESTHESIA ADMINISTERED BY: Dr. Mcdonough. INDICATION: The patient is a 41-year-old male with above diagnosis. The patient is four week status post left foot ORIF displaced calcaneus fracture with plate and screw fixation. Wound dehiscence is noted to the apex of the L shaped surgical wound with sutures intact at the peripheral ends. The patient has exhausted all conservative treatment at this time and opted for surgical intervention. The patient signed the consent after careful explanation of risks, benefits, complications and alternatives for the procedure. No guarantee was given nor implied. IV clindamycin 600 mg was given to the patient prior to the surgery, n.p.o. status was confirmed prior to taking the patient to the OR. PREPARATION: The patient was brought into the operating room and placed on the operating room table in a supine position. Time out was performed for identification of the correct the patient and procedure. After induction IV sedation, the patient received a total of 20 mL of 1:1 mixture of 0.5% Marcaine and 2% lidocaine plain in local block fashion to the left foot. Once local anesthesia was achieved, the left lower extremity was then prepped and draped in normal sterile manner and procedure began. No tourniquet was used during the procedure. DESCRIPTION OF PROCEDURE: Attention was directed to the lateral side of the left heel where the L-shaped wound is present. Using a pickup and dissecting scissor, all of the sutures were removed and passed off the surgical field. At the apex of L-shaped surgical wound, there is wound dehiscence noted centrally. The wound bed is composed of mix granular and fibrotic tissue with hardware exposed. Using a C-arm, an intraoperative picture was taken to examine and evaluate the calcaneus fracture and hardware placement. Using a fresh #15 blade all necrotic and nonviable tissue was excisionally debrided down up to the level of healthy fresh bleeding tissue. The site was then copiously irrigated using a Simpulse pulse lavage with 3 L of normal sterile saline. Next, the distal and proximal ends of the subcutaneous and skin layers were then reapproximated and coapted using a 2-0 Prolene using a retention suture technique. Using the pickup, the graft was placed over the center wound and 3-0 Prolene was used to secure the full thickness graft in place. Adaptic is placed over the graft and UZIEL wound VAC was applied to the entire wound, dressed with gauze and Kerlix. Modified Colon compression and modified AO posterior splint with extra layer of fiberglass added to the plantar plate was applied to the lower left extremity. POSTOPERATIVE CONDITION: The patient tolerated the anesthesia and procedure well and escorted to the recovery room with vital signs stable and neurovascular status intact to the left lower extremity. The patient is to remain NWB weightbearing to the left lower extremity with crutches. Patient strongly educated on the importance of compliance. Patient will keep dressing clean, dry, and intact and instructed not to touch dressing. The patient will follow up with Dr. Briseno in clinic in 1 week upon discharge. Ghulam Albarado DPM Gale Briseno DPM YAHAIRA
== END 2017-02-28 15:37 | disposition home or self-care (01) ==
LOC: C.SDS 07:56
PROVIDERS: ATTEND Podiatrist Foot & Ankle Surgery
DX: T81.89XD Other complications of procedures, not elsewhere classified, subsequent encounter (principal); L97.423 Non-pressure chronic ulcer of left heel and midfoot with necrosis of muscle
CPT/HCPCS: 11042; 15240; 97116; 97161; G8978; G8979; G8980; J1170; J2250; J2704; J3010; J7120; Q4125

== ENCOUNTER 2017-03-05 13:03 | Emergency (ER) | payer SELFPAY ==
[2017-03-05 13:26] VITALS: O2SAT 97
[2017-03-05] MEDS ORDERED: Oxycodone/Acetaminophen 5/325 mg Tab PO STA (14:40)
[2017-03-05] MEDS ORDERED: Oxycodone/Acetaminophen 5/325 mg Tab ONE (14:47)
--- NOTE | 2017-03-05 15:33 | CP.PCM.CON ---
History of Present Illness - History of Present Illness History of Present Illness: Podiatry Consult Note- Dr. Briseno This is a 41 yo male patient who presents to ED today with complaint of left foot pain. Pt is well-known to Dr. Briseno is 5 weeks s/p ORIF left calcaneal fracture (DOS: 01/31/17) and 1 week s/p wound debridement and application of wound vac (DOS:02/28/17). Pt has been following up with Dr. Briseno at [facility] podiatry clinic weekly. Pt says that he has been taking off the splint himself at night, complains of pain to the left heel and itchiness. Also says that he took off the wound vac himself today. Reports NWB to left foot and using crutches. Pt says this has been difficult because [place]. Denies f/n/v/c/sob at this time. Denies any numbness, tingling or calf pain to LLE. Review of Systems - Review of Systems Review of Systems: All systems reviewed and negative except HPI Past Patient History - Infectious Disease Hx of Infectious Diseases: None - Past Medical History & Family History Past Medical History?: Yes - Past Social History Smoking Status: Never Smoked - CARDIAC Hx Cardiac Disorders: No - PULMONARY Hx Respiratory Disorders: No - NEUROLOGICAL Hx Neurological Disorder: No - HEENT Hx HEENT Problems: No - RENAL Hx Chronic Kidney Disease: No - ENDOCRINE/METABOLIC Hx Endocrine Disorders: Yes Other/Comment: Hx of hypoglycemia - HEMATOLOGICAL/ONCOLOGICAL Hx Blood Disorders: No - INTEGUMENTARY Hx Dermatological Problems: No - MUSCULOSKELETAL/RHEUMATOLOGICAL Hx Musculoskeletal Disorders: Yes Hx Falls: Yes (Fell down stairs Jan.17) Hx Fractures: Yes (left foot) - GASTROINTESTINAL Hx Gastrointestinal Disorders: No - GENITOURINARY/GYNECOLOGICAL Hx Genitourinary Disorders: No - PSYCHIATRIC Hx Psychophysiologic Disorder: Yes Hx Anxiety: Yes Hx Depression: Yes Hx Substance Use: No Other/Comment: insomnia, ADHD - SURGICAL HISTORY Hx Surgeries: Yes Hx Orthopedic Surgery: Yes (left foot) - ANESTHESIA Hx Anesthesia: Yes Meds Allergies/Adverse Reactions: Allergies Allergy/AdvReac Type Severity Reaction Status Date / Time Penicillins Allergy Severe ANAPHYLAXIS Verified 03/05/17 13:26 Physical Exam - Constitutional Appears: Non-toxic, No Acute Distress - Extremities Exam Extremities exam: Negative for: calf tenderness Additional comments: LLE exam: Posterior splint is intact, yet dirty to plantar service. Wound vac is intact however is disconnected from batter pack. Dressing to foot is saturated with moderate serosanguinous drainage VASC- DP/PT pulses are palpable, skin temp runs warm to cool (from proximal to distal), cap refill < 3 sec to all digits, mild pedal edema seen lateral aspect of posterior foot DERM-superficial irregular ulceration is noted to lateral aspect of calcaneus, all sutures and skin graft intact, wound be is 100% granular and appears to be evelin in size, no purulence, no malodor, there is some periwound maceration noted to posterior-inferior aspect of wound, no surrounding or ascending cellulitis NEURO- grossly intact ORTHO- tenderness to palp of wound bed and posterior aspect of heel - Neurological Exam Neurological exam: Alert, CN II-XII Intact, Oriented x3 - Psychiatric Exam Psychiatric exam: Anxious Results - Vital Signs Recent Vital Signs: Last Vital Signs Temp 98.3 F 03/05/17 13:22 Pulse 76 03/05/17 13:22 Resp 20 03/05/17 13:22 BP 121/79 03/05/17 13:22 Pulse Ox 97 03/05/17 13:22 Assessment & Plan - Assessment and Plan (Free Text) Assessment: 41 yo male patient 5 week s/p ORIF left calcaneus fx and 1 week s/p left heel wound debridement with pain today of left foot Plan: Pt S&E at bedside in ED Plan discussed with attending Dr. Briseno Chart and vitals reviewed Heel x-ray (02/17/17): hardware intact and in good alignment Wound vac dressing removed from left foot and flushed with copious amts of saline Dressed with adaptic, DSD, kerlix, webril cast padding, new posterior splint applied Again reminded pt of importance of compliance w/ strict NWB to left foot w/ crutches and to keep splint c/d/i Pt to finished antibiotics given to him from Dr. Briseno last week RICE therapy Advised to follow up [facility] tomorrow with Dr. Briseno.
--- NOTE | 2017-03-05 15:46 | C.PDOC ---
Time Seen by Provider: 03/05/17 13:42 Chief Complaint (Nursing): Lower Extremity Problem/Injury Past Medical History Vital Signs: Last Vital Signs Temp 98.3 F 03/05/17 13:22 Pulse 76 03/05/17 13:22 Resp 20 03/05/17 13:22 BP 121/79 03/05/17 13:22 Pulse Ox 97 03/05/17 13:22 - Medical History PMH: Anxiety, Depression, Fractures (left foot) Denies: Chronic Kidney Disease - [facility] Procedures REPOSITION LEFT TARSAL WITH INT FIX, OPEN APPROACH (01/29/17) Family History: States: Unknown Family Hx - Social History Hx Alcohol Use: No Hx Substance Use: No - Immunization History Hx Tetanus Toxoid Vaccination: Yes Hx Influenza Vaccination: Yes Hx Pneumococcal Vaccination: Yes ED Course And Treatment O2 Sat by Pulse Oximetry: 97 Disposition - Disposition Referrals: Gale Briseno DPM [Staff Provider] - Disposition: HOME/ ROUTINE Disposition Time: 15:45 Condition: GOOD Additional Instructions: Follow up with the medical tomorrow without fail. Return if worsened. Instructions: Diabetic Foot Care (ED) - Clinical Impression Clinical Impression: Calcaneal fracture, Wound infection after surgery
--- NOTE | 2017-03-05 15:49 | C.PDOC ---
History Of Present Illness 03/05/2017 Gui Farooq is a 41 y/o male who presents to the ED complaining of left foot heel pain and surgical wound. Patient reports he fractured his heel and had surgery but has developed worsening pain prompting visit. Patient denies any fever, shortness of breath, or other complaints. Time Seen by Provider: 03/05/17 13:42 Chief Complaint (Nursing): Lower Extremity Problem/Injury History Per: Patient History/Exam Limitations: no limitations Onset/Duration Of Symptoms: Gradual, Worse Since (heel surgery ) Current Symptoms Are (Timing): Still Present - Ankle/Foot Description Of Injury: Other (calcaneal left foot surgery. c/o pain ) Past Medical History Reviewed: Historical Data, Nursing Documentation, Vital Signs Vital Signs: Last Vital Signs Temp 97.6 F 03/05/17 15:48 Pulse 62 03/05/17 15:48 Resp 16 03/05/17 15:48 BP 117/77 03/05/17 15:48 Pulse Ox 97 03/05/17 15:58 - Medical History PMH: Anxiety, Depression, Fractures (left foot) Denies: Chronic Kidney Disease - [facility] Procedures REPOSITION LEFT TARSAL WITH INT FIX, OPEN APPROACH (01/29/17) Family History: States: Unknown Family Hx - Social History Hx Alcohol Use: No Hx Substance Use: No - Immunization History Hx Tetanus Toxoid Vaccination: Yes Hx Influenza Vaccination: Yes Hx Pneumococcal Vaccination: Yes Review Of Systems Constitutional: Negative for: Fever Respiratory: Negative for: Shortness of Breath Musculoskeletal: Positive for: Foot Pain (left foot heel pain s/p surgery ) Physical Exam - Physical Exam Appears: Well, Non-toxic, No Acute Distress Skin: Normal Color, Warm, Dry Head: Atraumatic, Normacephalic Eye(s): bilateral: Normal Inspection, PERRL, EOMI Oral Mucosa: Moist Extremity: No Deformity, Other (wound to left calcaneal with drainage ) Pulses: Left Dorsalis Pedis: Normal, Right Dorsalis Pedis: Normal Neurological/Psych: Oriented x3, Normal Speech, Normal Motor, Normal Sensation Gait: Steady ED Course And Treatment O2 Sat by Pulse Oximetry: 97 (room air) Pulse Ox Interpretation: Normal Medical Decision Making Medical Decision Makin03/05/2017 Old records reviewed the patient was last seen in the ED for similar symptoms and was discharged with podiatry follow up. Plan: -- Percocet -- Reassess and disposition Re-evaluation: Case was discussed with Dr. Skye Turner, vice president of advertising, who came in, evaluated the patient, and placed a new splint. States that the patient had a wound vac but the patient removed that on his own. Case also discussed with Dr. Briseno and will see patient in office tomorrow. Discussed results and plan with patient. Patient understands results and is agreeable with plan. All questions answered. Disposition - Disposition Referrals: Gale Briseno DPM [Staff Provider] - Disposition: HOME/ ROUTINE Disposition Time: 15:30 Condition: GOOD Additional Instructions: Follow up with the medical tomorrow without fail. Return if worsened. Instructions: Diabetic Foot Care (ED) Forms: [facility] [facility] (Syrian) - Clinical Impression Clinical Impression: Calcaneal fracture, Wound infection after surgery - Scribe Statement The provider has reviewed the documentation as recorded by the Scribe 03/05/2017 Scribe Attestation: Audra Perez MD Scribe Attestation: All medical record entries made by the Scribe were at my direction and personally dictated by me. I have reviewed the chart and agree that the record accurately reflects my personal performance of the history, physical exam, medical decision making, and the department course for this patient. I have also personally directed, reviewed, and agree with the discharge instructions and disposition.
[2017-03-05 15:55] VITALS: BP 117/77; PULSE 62; RESP 16; TEMP 97.6
== END 2017-03-05 15:57 | disposition home or self-care (01) ==
LOC: C.ER 13:03
DX: T81.4XXA Infection following a procedure, initial encounter (principal); S92.002A Unspecified fracture of left calcaneus, initial encounter for closed fracture; X58.XXXA Exposure to other specified factors, initial encounter

== ENCOUNTER 2017-03-08 08:38 | Emergency (ER) | payer SELFPAY ==
[2017-03-08 08:52] VITALS: TEMP 98.1
--- NOTE | 2017-03-08 09:39 | C.PDOC ---
History Of Present Illness 41 year old male presents to the ED for wound check. Patient underwent surgery for a left calcaneal fracture by Dr. Briseno around 2 weeks ago. Patient was seen in [facility] on 03/05 for wound check and cleaning. Patient states he missed his appointment for wound check yesterday and presents to the ED today for further evaluation. Patient notes he is scheduled for an appointment with Dr. Briseno in 2 weeks. Patient denies fever, chills, pain, swelling or discharge from the affected area. Time Seen by Provider: 03/08/17 09:30 Chief Complaint (Nursing): Abnormal Skin Integrity History Per: Patient History/Exam Limitations: no limitations Onset/Duration Of Symptoms: Days Current Symptoms Are (Timing): Still Present Location Of Injury: Left: Foot Quality Of Symptoms: denies: Painful, Swollen, Draining Additional History Per: Patient Past Medical History Reviewed: Historical Data, Nursing Documentation, Vital Signs Vital Signs: Last Vital Signs Temp 98.1 F 03/08/17 08:48 Pulse 72 03/08/17 10:09 Resp 18 03/08/17 10:09 BP 120/72 03/08/17 10:09 Pulse Ox 97 03/08/17 16:07 - Medical History PMH: Anxiety, Depression, Fractures (left foot) Surgical History: No Surg Hx - [facility] Procedures REPOSITION LEFT TARSAL WITH INT FIX, OPEN APPROACH (01/29/17) Family History: States: Unknown Family Hx - Social History Hx Alcohol Use: No Hx Substance Use: No - Immunization History Hx Tetanus Toxoid Vaccination: Yes Hx Influenza Vaccination: Yes Hx Pneumococcal Vaccination: Yes Review Of Systems Constitutional: Negative for: Fever, Chills Skin: Positive for: Other (wound check to left foot. no pain, sweling, or discharge ) Physical Exam - Physical Exam Appears: Non-toxic, No Acute Distress Skin: Normal Color, Warm, Dry Extremity: Normal ROM, Capillary Refill (less than 2 seconds ), Other ( posterior splint and dressing intact on left foot ) Neurological/Psych: Normal Speech, Normal Cognition ED Course And Treatment O2 Sat by Pulse Oximetry: 97 (on RA) Pulse Ox Interpretation: Normal Progress Note: Posterior splint and dressing removed from left foot. Post- operative sutures in place. No erythema or drainage around suture site. Swelling noted to calcaneal area. No signs of infections visualized. Wound was cleaned by CP. Wound was redressed, posterior splint was reapplied and checked by me. On reassessment, patient is resting comfortably, showing no signs of distress and is stable for discharge. Patient is advised to follow up with his PMD within 1-2 days for further evaluation and keep his scheduled appointment with Dr. Briseno. Disposition - Disposition Disposition: HOME/ ROUTINE Disposition Time: 09:38 Condition: STABLE Additional Instructions: Follow up with Director Of Clinical Applications as instructed. Return to ED if feel worse. Instructions: Acute Wound Care (ED) Forms: [employer] (Czech) - Clinical Impression Clinical Impression: Visit for wound check - PA / SIDING COREBOARD INSPECTOR / Resident Statement MD/DO has reviewed & agrees with the documentation as recorded. - Scribe Statement The provider has reviewed the documentation as recorded by the Scribe (Ericka Luo) All medical record entries made by the Scribe were at my direction and personally dictated by me. I have reviewed the chart and agree that the record accurately reflects my personal performance of the history, physical exam, medical decision making, and the department course for this patient. I have also personally directed, reviewed, and agree with the discharge instructions and disposition.
[2017-03-08 10:10] VITALS: BP 120/72; PULSE 72; RESP 18
[2017-03-08 15:55] VITALS: O2SAT 97
== END 2017-03-08 10:10 | disposition home or self-care (01) ==
LOC: C.ER 08:38
DX: Z48.01 Encounter for change or removal of surgical wound dressing (principal)

== ENCOUNTER 2017-12-18 09:46 | Inpatient (IN) | payer SELFPAY ==
[2017-12-14 09:07] VITALS: BMI 30.5
[2017-12-18] MEDS ORDERED: Lidocaine Hydrochloride 5 ML INJ ONE ×2 (12:10→13:28)
[2017-12-18] MEDS ORDERED: Bupivacaine HCl 0.5% PF (30 ml) Inj ONE (12:10)
[2017-12-18] MEDS ORDERED: Propofol 10 mg/ml Inj (20 ML) ONE ×2 (12:24→12:31)
[2017-12-18] MEDS ORDERED: Midazolam 2 MG/2 ML VIAL ONE (12:43)
[2017-12-18] MEDS ORDERED: Vancomycin 1 g Inj ONE (13:46)
--- NOTE | 2017-12-18 14:52 | PCM.SURG1 ---
Surgeon's Initial Post Op Note - Surgeon's Notes Surgeon: Dr. Briseno Clinical Operations Consultant: Dr. Johnny Abdullahi, Dr. Cleo Dsouza, Dr. Roselia Luo Type of Anesthesia: General LMA Pre-Operative Diagnosis: Left foot painful retained hardware Operative Findings: 2-0, 3-0 vicryl, 3-0 nylon Post-Operative Diagnosis: same Operation Performed: Left foot removal of hardware with bone biopsy of calcaneus Specimen/Specimens Removed: Left calcaneal bone Estimated Blood Loss: EBL {In ML}: 40 Blood Products Given: N/A Drains Used: No Drains Post-Op Condition: Good Date of Surgery/Procedure: 12/18/17 Time of Surgery/Procedure: 13:30
[2017-12-18] MEDS ORDERED: HYDROmorphone 0.5 mg/0.5 ml ISec IVP PRN (16:00)
--- NOTE | 2017-12-18 17:05 | CP.PCM.CON ---
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 At that time, patient stated he could not put weight on the foot following the fall. Patient came to the ER on 01/26. Xrays taken on that day indicated a calcaneal fracture and suspected dislocation of the talocalcaneal joint. Patient was seen by podiatry at that time and was told to return to the ED for a planned ORIF of the left calcaneus for 01/30/17. Patient had an acute displaced fracture in the left calcaneus with suspected dislocation of the talocalcaneal joint with soft tissue swelling as per imaging on 01/26/17. ORIF performed on left calcaneus on 01/30. Successful fixation was confirmed by X-ray shortly after procedure. Patient was medically cleared for discharge. Patient reports that Pain and swelling remained in the following months after surgery. Pain described pain getting worst while walking up and being on his feet all day during work. Patient was examined by Dr Briseno and scheduled for a removal of hardware. Patient presents for surgery by podiatry. He is s/p Left foot removal of hardware with bone biopsy of calcaneus , seen in PACU. Consultation request was placed for medical management of chronic issue. PMD: none PMHx: anxiety, depression, ADHA, insomnia, hypoglycemia which patient reports worsens his ADHD Meds:Bupropion 150 mg PO QD, Zolpidem 5mg PO Hs, Escitalopram 5mg PO QD PSHx: denies family hx: denies social hx: denies alcohol and drugs, reports recently smoking 10 cigarettes per day since the fall that broke his calcaneus, moved here 3 months ago from [place], lives in [facility], [place], operated by [facility] on 3rd floor- no elevator, works in a restaurant Review of Systems - Constitutional Constitutional: absent: Chills, Fever, Headache, Malaise - EENT Eyes: absent: Change in Vision Nose/Mouth/Throat: absent: Mouth Pain, Sore Throat, Neck Pain - Cardiovascular Cardiovascular: absent: Chest Pain, Dyspnea, Lightheadedness - Respiratory Respiratory: absent: Cough, Dyspnea - Gastrointestinal Gastrointestinal: absent: Abdominal Pain, Constipation, Diarrhea, Dysphagia - Genitourinary Genitourinary: absent: Dysuria, Urinary Incontinence - Musculoskeletal Musculoskeletal: absent: Back Pain, Muscle Weakness Additional comments: mild pain on left foot - Neurological Neurological: absent: Confusion, Dizziness, Numbness, Headaches, Memory Loss, Weakness - Psychiatric Psychiatric: absent: Anxiety, Depression - Endocrine Endocrine: absent: Excessive Sweating, Fatigue, Polydipsia, Polyphagia Past Patient History - Infectious Disease Hx of Infectious Diseases: None - Past Medical History & Family History Past Medical History?: No - Past Social History Smoking Status: Former Smoker - CARDIAC Hx Cardiac Disorders: No - PULMONARY Hx Respiratory Disorders: No - NEUROLOGICAL Hx Neurological Disorder: No - HEENT Hx HEENT Problems: Yes (GLASSES) - RENAL Hx Chronic Kidney Disease: No - ENDOCRINE/METABOLIC Hx Endocrine Disorders: No Other/Comment: Hx of hypoglycemia - HEMATOLOGICAL/ONCOLOGICAL Hx Blood Disorders: No - INTEGUMENTARY Hx Dermatological Problems: Yes (HEALED ULCER LEFT HEEL) - MUSCULOSKELETAL/RHEUMATOLOGICAL Hx Musculoskeletal Disorders: Yes Hx Falls: Yes Hx Fractures: Yes (LEFT CALCANEAL) - GASTROINTESTINAL Hx Gastrointestinal Disorders: No - GENITOURINARY/GYNECOLOGICAL Hx Genitourinary Disorders: No - PSYCHIATRIC Hx Psychophysiologic Disorder: Yes Hx Anxiety: Yes (ADHD) Hx Depression: Yes Hx Substance Use: No Other/Comment: insomnia, ADHD - SURGICAL HISTORY Hx Surgeries: Yes Hx Open Reduction Internal Fixation: Yes (LEFT FOOT) Hx Orthopedic Surgery: Yes (left foot) - ANESTHESIA Hx Anesthesia: Yes Hx Anesthesia Reactions: No Hx Malignant Hyperthermia: No Has any member of the family had a problem w/ anesthesia?: (UNKNOWN) Meds Allergies/Adverse Reactions: Allergies Allergy/AdvReac Type Severity Reaction Status Date / Time Penicillins Allergy Severe ANAPHYLAXIS Verified 12/14/17 09:04 - Medications Medications: Current Medications Acetaminophen (Tylenol 325mg Tab) 650 mg PO Q6 PRN PRN Reason: Pain, Mild (1-3) Docusate Sodium (Colace) 100 mg PO BID MARIZOL Enoxaparin Sodium (Lovenox) 40 mg SC DAILY MARIZOL Hydromorphone HCl (Dilaudid) 0.5 mg IVP Q10M PRN PRN Reason: Pain, moderate (4-7) Oxycodone/Acetaminophen (Percocet 5/325 Mg Tab) 1 tab PO Q4H PRN PRN Reason: Pain, moderate (4-7) Stop: 12/21/17 14:55 Oxycodone/Acetaminophen (Percocet 5/325 Mg Tab) 2 tab PO Q4H PRN PRN Reason: Pain, severe (8-10) Stop: 12/21/17 14:55 Physical Exam - Constitutional Appears: Non-toxic, No Acute Distress Results - Vital Signs Recent Vital Signs: Last Vital Signs Temp 97 F L 12/18/17 15:35 Pulse 83 12/18/17 16:30 Resp 14 12/18/17 16:30 BP 99/52 L 12/18/17 16:30 Pulse Ox 100 12/18/17 16:30 Assessment & Plan - Assessment and Plan (Free Text) Assessment: 42 yo male presenting for Left foot removal of hardware with bone biopsy of calcaneus, Post op day 0, s/p Left foot removal of hardware with bone biopsy of calcaneus Plan: 1. surgery for Left foot painful retained hardware * Patient admitted to podiatry- Dr. Briseno * Left foot removal of hardware with bone biopsy of calcaneus done on 12/18/17 * F/U bone biopsy results * Continued surgical management/pain management as per surgical recs * Tylenol 325 mg PO Q6 PRN * Dilaudid 0.5mg IVP Q10 PRN for moderate pain * Oxycodone/acetaminophen 5/325mg 1 tab PO Q4 PRN for moderate pain * Oxycodone/acetaminophen 5/325mg 2 tab PO Q4 PRN for severe pain * F/U AM labs 2. anxiety and depression * continue home medications * Bupropion 150mg PO QDaily * Escitalopram 5mg PO QDaily 3. insomnia * Continue Zolpidem 5mg PO QDaily 4. ADHD * No intervention at this time 4. prophylaxis * DVT prophylaxis: Lovenox 40 mg SC Qdaily * GI: Pepcid 20mg PO BID * PT evaluation * Colace * Continue regular diet - Date & Time Date: 12/18/17 Time: 19:27
--- NOTE | 2017-12-18 18:43 | RAD ---
PROCEDURE: Intraoperative Fluoroscopy. HISTORY: LEFT FOOT SCREW REMOVAL FINDINGS: Fluoroscopic assistance was provided for open reduction internal fixation left calcaneus. Total exam DLP: 0.49 (mGy) Total fluoroscopic time (continuous mode) utilized during the procedure (seconds) 33.0. Please refer to the operative report from MAYO Stone.
[2017-12-18] MEDS: Oxycodone/Acetaminophen 5/325 mg Tab PO PRN (20:50)
[2017-12-18 21:19] VITALS: RESP 20
[2017-12-19] MEDS: Oxycodone/Acetaminophen 5/325 mg Tab PO PRN ×3 (05:36→21:30)
[2017-12-19 08:31] LABS: BASO # 0.1 K/uL (0.0-0.2); BASO % 0.9 % (0.0-2.0); EOS # 0.5 K/uL (0.0-0.7); EOS % 5.9 % (0.0-4.0); LYMPH # 1.3 K/uL (1.0-4.3); LYMPH % 13.8 % (20.0-40.0); MEAN CELL VOLUME 88.5 fL (80.0-94.0); MEAN CORPUSCULAR HEMOGLOBIN 29.9 pg (27.0-31.0); MEAN CORPUSCULAR HGB CONC 33.8 g/dL (33.0-37.0); MEAN PLATELET VOLUME 7.1 fL (7.2-11.7); MONO # 0.8 K/uL (0.0-0.8); MONO % 8.3 % (0.0-10.0); NEUT # 6.6 K/uL (1.8-7.0); NEUT % 71.1 % (50.0-75.0); RBC 4.06 Mil/uL (4.40-5.90); RED CELL DISTRIBUTION WIDTH 14.1 % (11.5-14.5); WHITE BLOOD COUNT 9.2 K/uL (4.8-10.8)
[2017-12-19 08:44] LABS: HEMOGLOBIN 12.1 g/dL (12.0-18.0)
[2017-12-19 09:03] LABS: BLOOD UREA NITROGEN 11 mg/dL (9-20); CALCIUM 8.7 mg/dl (8.6-10.4); GFR AFRICAN-AMERICAN > 60; GFR NON-AFRICAN AMERICAN > 60
--- NOTE | 2017-12-19 09:57 | CP.PCM.CON ---
History of Present Illness - History of Present Illness History of Present Illness: Hospitalist Consult Progress Note Patient was seen and examined at 9:40 AM He is S/P Left Foot Surgery for removal of hardware and biopsy of left calcaneous on 12/18/17 by primary team Podiatry Dr. Briseno. Currently upon FULL ROS: NO dysphagia/odynopahgia NO soreness in throat NO cough NO sinus/nasal congestion NO fever/chills NO chest pain/palpations NO SOB NO abdominal pain NO n/v/d/c: last bowel movement was 12/18/17 and it was normal NO burning pain with urination NO NIXON NO lightheadedness/dizziness NO paresthesias NO new changes in vision NO new changes in hearing Exam: General: AAOX3, NAD HEENT: NCA, EOMI, PERRLA, NO cervical/supraclavicular/submandibular lymphadenopathy, NO pharyngeal erythema/exudate, Nasal Turbinates are nonerythematous/nonedematous, Oral Mucosa is moist Cardio: NS1 and NS2, NO M/R/G Resp: CTA B/L, NO R/R/W GI: BSx4, Soft, NT, NO HSM, NO guarding/rebound tenderness Ext: Pulses are strong and equal, Capillary Refill is 2 seconds, NO edema ( however presence of edema of left lower leg could not be assessmed due surgical cast/katelynn bandage however toes of the left LE are warm/normal color/sensation intact/capillary refill 2 seconds/movement present without difficulty or pain) Neuro: CN II through XII are grossly intact Assessment and Plan: 1). S/P Left Foot surgery for removal of hardware with biopsy of left calcaneous Management as per primary team who will need to follow up results of the left calcaneous biopsy 2). Anxiety/Depression Patient states that he is doing well: he has a job that he loves doing and living with roommates that are his friends. Bupropian 150 mg PO 1x/day Lexapro 5 mg PO 1x/day Patient is being followed by Psychiatrist Dr. Shea Weldon with whom he has follow up already scheduled for 01/05/18 Patient has enough Lexapro and Bupriopian to last him until he sees Dr. Weldon therefore NO Rx needed 3). Insomnia Zolpidem 5 mg PO HS PRN Patient has enough Zolpidem to last him until he sees Dr. Weldon therefore NO Rx needed Appropriate follow up is already in place (as mentioned above) and he has enough prescriptions for his chronic issues. Therefore Medicine Team will be signing off. However, if there are any issues please do not hesitate to give us call. Gabriel Luo D.O. Past Patient History - Infectious Disease Hx of Infectious Diseases: None - Past Medical History & Family History Past Medical History?: No - Past Social History Smoking Status: Former Smoker - CARDIAC Hx Cardiac Disorders: No - PULMONARY Hx Respiratory Disorders: No - NEUROLOGICAL Hx Neurological Disorder: No - HEENT Hx HEENT Problems: Yes (GLASSES) - RENAL Hx Chronic Kidney Disease: No - ENDOCRINE/METABOLIC Hx Endocrine Disorders: No Other/Comment: Hx of hypoglycemia - HEMATOLOGICAL/ONCOLOGICAL Hx Blood Disorders: No - INTEGUMENTARY Hx Dermatological Problems: Yes (HEALED ULCER LEFT HEEL) - MUSCULOSKELETAL/RHEUMATOLOGICAL Hx Musculoskeletal Disorders: Yes Hx Falls: Yes Hx Fractures: Yes (LEFT CALCANEAL) - GASTROINTESTINAL Hx Gastrointestinal Disorders: No - GENITOURINARY/GYNECOLOGICAL Hx Genitourinary Disorders: No - PSYCHIATRIC Hx Psychophysiologic Disorder: Yes Hx Anxiety: Yes (ADHD) Hx Depression: Yes Hx Substance Use: No Other/Comment: insomnia, ADHD - SURGICAL HISTORY Hx Surgeries: Yes Hx Open Reduction Internal Fixation: Yes (LEFT FOOT) Hx Orthopedic Surgery: Yes (left foot) - ANESTHESIA Hx Anesthesia: Yes Hx Anesthesia Reactions: No Hx Malignant Hyperthermia: No Has any member of the family had a problem w/ anesthesia?: (UNKNOWN) Meds Allergies/Adverse Reactions: Allergies Allergy/AdvReac Type Severity Reaction Status Date / Time Penicillins Allergy Severe ANAPHYLAXIS Verified 12/14/17 09:04 - Medications Medications: Current Medications Acetaminophen (Tylenol 325mg Tab) 650 mg PO Q6 PRN PRN Reason: Pain, Mild (1-3) Bupropion HCl (Wellbutrin) 150 mg PO DAILY [facility] Docusate Sodium (Colace) 100 mg PO BID MARIZOL Last Admin: 12/18/17 20:50 Dose: 100 mg Enoxaparin Sodium (Lovenox) 40 mg SC DAILY MARIZOL Escitalopram Oxalate (Lexapro) 5 mg PO DAILY MARIZOL Hydromorphone HCl (Dilaudid) 0.5 mg IVP Q10M PRN PRN Reason: Pain, moderate (4-7) Oxycodone/Acetaminophen (Percocet 5/325 Mg Tab) 1 tab PO Q4H PRN PRN Reason: Pain, moderate (4-7) Stop: 12/21/17 14:55 Last Admin: 12/18/17 20:50 Dose: 1 tab Oxycodone/Acetaminophen (Percocet 5/325 Mg Tab) 2 tab PO Q4H PRN PRN Reason: Pain, severe (8-10) Stop: 12/21/17 14:55 Last Admin: 12/19/17 05:36 Dose: 2 tab Pneumococcal Polyvalent Vaccine (Pneumovax 23 Vaccine) 0.5 ml IM .ONCE ONE Stop: 12/19/17 10:01 Zolpidem Tartrate (Ambien) 5 mg PO HS PRN PRN Reason: Insomnia Results - Vital Signs Recent Vital Signs: Last Vital Signs Temp 98.1 F 12/19/17 07:58 Pulse 76 12/19/17 07:58 Resp 20 12/19/17 07:58 BP 106/68 12/19/17 07:58 Pulse Ox 95 12/19/17 07:58 - Labs Result Diagrams: 12/19/17 08:00 12/19/17 08:00 Labs: Laboratory Results - last 24 hr 12/19/17 12/19/17 08:00 08:00 WBC 9.2 RBC 4.06 L Hgb 12.1 D Hct 35.9 MCV 88.5 MCH 29.9 MCHC 33.8 RDW 14.1 Plt Count 279 MPV 7.1 L Neut % (Auto) 71.1 Lymph % (Auto) 13.8 L [place] % (Auto) 8.3 Eos % (Auto) 5.9 H Baso % (Auto) 0.9 Neut # (Auto) 6.6 Lymph # (Auto) 1.3 [place] # (Auto) 0.8 Eos # (Auto) 0.5 Baso # (Auto) 0.1 Sodium 138 Potassium 4.1 Chloride 102 Carbon Dioxide 26 Anion Gap 14 BUN 11 Creatinine 1.1 Est GFR ( Amer) > 60 Est GFR (Non-Af Amer) > 60 Random Glucose 107 Calcium 8.7
[2017-12-19] MEDS ORDERED: Pneumococcal 23-Valent Vaccine IM ONE (10:00)
[2017-12-19] MEDS: Enoxaparin 40 mg Syringe SC SCH (10:07)
--- NOTE | 2017-12-19 10:24 | CP.PCM.CON ---
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 Due to persistent pain ,. Patient was examined by Dr Briseno and scheduled for a removal of hardware. 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, works in a restaurant Review of Systems - Constitutional Constitutional: absent: Chills, Fever, Headache, Malaise - EENT Eyes: absent: Change in Vision Nose/Mouth/Throat: absent: Mouth Pain, Sore Throat, Neck Pain - Cardiovascular Cardiovascular: absent: Chest Pain, Dyspnea, Lightheadedness - Respiratory Respiratory: absent: Cough, Dyspnea - Gastrointestinal Gastrointestinal: absent: Abdominal Pain, Constipation, Diarrhea, Dysphagia - Genitourinary Genitourinary: absent: Dysuria, Urinary Incontinence - Musculoskeletal Musculoskeletal: absent: Back Pain, Muscle Weakness Additional comments: mild pain on left foot - Neurological Neurological: absent: Confusion, Dizziness, Numbness, Headaches, Memory Loss, Weakness - Psychiatric Psychiatric: absent: Anxiety, Depression - Endocrine Endocrine: absent: Excessive Sweating, Fatigue, Polydipsia, Polyphagia Past Patient History - Infectious Disease Hx of Infectious Diseases: None - Past Medical History & Family History Past Medical History?: No - Past Social History Smoking Status: Former Smoker - CARDIAC Hx Cardiac Disorders: No - PULMONARY Hx Respiratory Disorders: No - NEUROLOGICAL Hx Neurological Disorder: No - HEENT Hx HEENT Problems: Yes (GLASSES) - RENAL Hx Chronic Kidney Disease: No - ENDOCRINE/METABOLIC Hx Endocrine Disorders: No Other/Comment: Hx of hypoglycemia - HEMATOLOGICAL/ONCOLOGICAL Hx Blood Disorders: No - INTEGUMENTARY Hx Dermatological Problems: Yes (HEALED ULCER LEFT HEEL) - MUSCULOSKELETAL/RHEUMATOLOGICAL Hx Musculoskeletal Disorders: Yes Hx Falls: Yes Hx Fractures: Yes (LEFT CALCANEAL) - GASTROINTESTINAL Hx Gastrointestinal Disorders: No - GENITOURINARY/GYNECOLOGICAL Hx Genitourinary Disorders: No - PSYCHIATRIC Hx Psychophysiologic Disorder: Yes Hx Anxiety: Yes (ADHD) Hx Depression: Yes Hx Substance Use: No Other/Comment: insomnia, ADHD - SURGICAL HISTORY Hx Surgeries: Yes Hx Open Reduction Internal Fixation: Yes (LEFT FOOT) Hx Orthopedic Surgery: Yes (left foot) - ANESTHESIA Hx Anesthesia: Yes Hx Anesthesia Reactions: No Hx Malignant Hyperthermia: No Has any member of the family had a problem w/ anesthesia?: (UNKNOWN) Meds Allergies/Adverse Reactions: Allergies Allergy/AdvReac Type Severity Reaction Status Date / Time Penicillins Allergy Severe ANAPHYLAXIS Verified 12/14/17 09:04 - Medications Medications: Current Medications Acetaminophen (Tylenol 325mg Tab) 650 mg PO Q6 PRN PRN Reason: Pain, Mild (1-3) Bupropion HCl (Wellbutrin Xl) 150 mg PO DAILY [facility] Docusate Sodium (Colace) 100 mg PO BID [facility] Last Admin: 12/18/17 20:50 Dose: 100 mg Enoxaparin Sodium (Lovenox) 40 mg SC DAILY [facility] Escitalopram Oxalate (Lexapro) 5 mg PO DAILY [facility] Hydromorphone HCl (Dilaudid) 0.5 mg IVP Q10M PRN PRN Reason: Pain, moderate (4-7) Oxycodone/Acetaminophen (Percocet 5/325 Mg Tab) 1 tab PO Q4H PRN PRN Reason: Pain, moderate (4-7) Stop: 12/21/17 14:55 Last Admin: 12/18/17 20:50 Dose: 1 tab Oxycodone/Acetaminophen (Percocet 5/325 Mg Tab) 2 tab PO Q4H PRN PRN Reason: Pain, severe (8-10) Stop: 12/21/17 14:55 Last Admin: 12/19/17 05:36 Dose: 2 tab Zolpidem Tartrate (Ambien) 5 mg PO HS PRN PRN Reason: Insomnia Physical Exam - Constitutional Appears: Younger Than Stated Age, Chronically Ill - Head Exam Head Exam: ATRAUMATIC, NORMAL INSPECTION, NORMOCEPHALIC - Eye Exam Eye Exam: PERRL. absent: Scleral icterus Pupil Exam: NORMAL ACCOMODATION - ENT Exam ENT Exam: Mucous Membranes Dry, Normal External Ear Exam - Neck Exam Neck exam: Negative for: Lymphadenopathy - Respiratory Exam Respiratory Exam: Decreased Breath Sounds - Cardiovascular Exam Cardiovascular Exam: REGULAR RHYTHM - GI/Abdominal Exam GI & Abdominal Exam: Diminished Bowel Sounds, Soft. absent: Tenderness - Rectal Exam Rectal Exam: Deferred - Exam Exam: NORMAL INSPECTION - Extremities Exam Extremities exam: Positive for: pedal edema, tenderness, pedal pulses present. Negative for: calf tenderness - Back Exam Back exam: absent: CVA tenderness (L), CVA tenderness (R) - Neurological Exam Neurological exam: Alert, CN II-XII Intact, Oriented x3, Reflexes Normal - Psychiatric Exam Psychiatric exam: Normal Mood - Skin Skin Exam: Dry Results - Vital Signs Recent Vital Signs: Last Vital Signs Temp 98.1 F 12/19/17 07:58 Pulse 76 12/19/17 07:58 Resp 20 12/19/17 07:58 BP 106/68 12/19/17 07:58 Pulse Ox 95 12/19/17 07:58 - Labs Result Diagrams: 12/19/17 08:00 12/19/17 08:00 Labs: Laboratory Results - last 24 hr 12/19/17 12/19/17 08:00 08:00 WBC 9.2 RBC 4.06 L Hgb 12.1 D Hct 35.9 MCV 88.5 MCH 29.9 MCHC 33.8 RDW 14.1 Plt Count 279 MPV 7.1 L Neut % (Auto) 71.1 Lymph % (Auto) 13.8 L [place] % (Auto) 8.3 Eos % (Auto) 5.9 H Baso % (Auto) 0.9 Neut # (Auto) 6.6 Lymph # (Auto) 1.3 [place] # (Auto) 0.8 Eos # (Auto) 0.5 Baso # (Auto) 0.1 Sodium 138 Potassium 4.1 Chloride 102 Carbon Dioxide 26 Anion Gap 14 BUN 11 Creatinine 1.1 Est GFR ( Amer) > 60 Est GFR (Non-Af Amer) > 60 Random Glucose 107 Calcium 8.7 Assessment & Plan (1) Calcaneal fracture Status: Acute - Assessment and Plan (Free Text) Assessment: concern for OM hardware our cultures and bx pending IV rx in progress
[2017-12-19] MEDS: buPROPion 150 mg/24 Hours XL Tab PO SCH (11:00)
[2017-12-19] MEDS: Vancomycin 1 gm/NS 200 ml 1 GM/200 ML BAG IVPB SCH ×2 (13:11→21:10)
--- NOTE | 2017-12-19 18:29 | CP.PCM.PN ---
<German New - Last Filed: 12/19/17 18:33> Subjective - Date & Time of Evaluation Date of Evaluation: 12/19/17 Time of Evaluation: 09:30 - Subjective Subjective: PGY-[address] Erasmo Hardwick service Patient was seen and examined by bedside. Patient is s/p left foot removal of hardware with bone biopsy Post Op day #1. Patient reports having moderate pain in his left foot overnight. Patient said pain resolved after pain medication given. Patient is in no acute distress currently. Patient denies any fever, chills, SOB, chest pain, Nausea, Vomiting, abdominal pain, diarrhea or constipation. Objective - Vital Signs/Intake and Output Vital Signs (last 24 hours): Temp Pulse Resp BP Pulse Ox 99.0 F 87 20 116/72 93 L 12/19/17 16:12 12/19/17 16:12 12/19/17 16:12 12/19/17 16:12 12/19/17 16:12 Intake and Output: 12/19/17 12/19/17 06:59 18:59 Intake Total 280 500 Balance 280 500 - Medications Medications: Current Medications Acetaminophen (Tylenol 325mg Tab) 650 mg PO Q6 PRN PRN Reason: Pain, Mild (1-3) Bupropion HCl (Wellbutrin Xl) 150 mg PO DAILY [facility] Last Admin: 12/19/17 11:00 Dose: 150 mg Docusate Sodium (Colace) 100 mg PO BID [facility] Last Admin: 12/19/17 17:13 Dose: 100 mg Enoxaparin Sodium (Lovenox) 40 mg SC DAILY [facility] Last Admin: 12/19/17 10:07 Dose: 40 mg Escitalopram Oxalate (Lexapro) 5 mg PO DAILY [facility] Last Admin: 12/19/17 10:07 Dose: 5 mg Hydromorphone HCl (Dilaudid) 0.5 mg IVP Q10M PRN PRN Reason: Pain, moderate (4-7) Vancomycin/Sodium Chloride (Vancomycin 1 Gm/Ns 200 Ml) 1 gm in 200 mls @ 133.333 mls/hr IVPB Q8 [facility]LO PRN Reason: Protocol Stop: 12/24/17 13:01 Last Admin: 12/19/17 13:11 Dose: 133.333 mls/hr Oxycodone/Acetaminophen (Percocet 5/325 Mg Tab) 1 tab PO Q4H PRN PRN Reason: Pain, moderate (4-7) Stop: 12/21/17 14:55 Last Admin: 12/18/17 20:50 Dose: 1 tab Oxycodone/Acetaminophen (Percocet 5/325 Mg Tab) 2 tab PO Q4H PRN PRN Reason: Pain, severe (8-10) Stop: 12/21/17 14:55 Last Admin: 12/19/17 12:28 Dose: 2 tab Zolpidem Tartrate (Ambien) 5 mg PO HS PRN PRN Reason: Insomnia - Labs Labs: 12/19/17 08:00 12/19/17 08:00 - Constitutional Appears: Well, Non-toxic, No Acute Distress - Head Exam Head Exam: ATRAUMATIC, NORMAL INSPECTION, NORMOCEPHALIC - Eye Exam Eye Exam: EOMI, Normal appearance, PERRL - Neck Exam Neck Exam: Full ROM, Normal Inspection - Respiratory Exam Respiratory Exam: Clear to Ausculation Bilateral, NORMAL BREATHING PATTERN. absent: Rales, Rhonchi, Wheezes - Cardiovascular Exam Cardiovascular Exam: REGULAR RHYTHM, +S1, +S2. absent: Gallop, Rubs, Murmur - GI/Abdominal Exam GI & Abdominal Exam: Soft, Normal Bowel Sounds. absent: Distended, Guarding, Rigid, Tenderness - Extremities Exam Additional comments: Left foot remains splinted. Left foot sensation intact, full active ROM on left toes. - Neurological Exam Neurological Exam: Alert, Awake - Psychiatric Exam Psychiatric exam: Normal Affect, Normal Mood - Skin Skin Exam: Intact, Normal Color Assessment and Plan - Assessment and Plan (Free Text) Plan: 1. surgery for Left foot painful retained hardware * Patient admitted to podiatry- Dr. Briseno * Left foot removal of hardware with bone biopsy of calcaneus done on 12/18/17 * bone tissue biopsy 12/19: Gram stain final results - no polymorphonuclear organisms seen, no organisms seen. Tissue culture pending * Dr Chavira consulted on 12/19 - Concern for OM, culture pendings and biopsy, added Vancomycin 1gm IVPB Q8hrs * Continued surgical management/pain management as per surgical recs * Continue Tylenol 325 mg PO Q6 PRN for mild pain * Dilaudid 0.5mg IVP Q10 PRN for moderate pain * Oxycodone/acetaminophen 5/325mg 1 tab PO Q4 PRN for moderate pain * Oxycodone/acetaminophen 5/325mg 2 tab PO Q4 PRN for severe pain 2. anxiety and depression * continue home medications * Bupropion 150mg PO QDaily * Escitalopram 5mg PO QDaily 3. insomnia * Continue Zolpidem 5mg PO QDaily 4. ADHD * No intervention at this time 4. prophylaxis * DVT prophylaxis: Lovenox 40 mg SC Qdaily * GI: Pepcid 20mg PO BID * PT evaluation * Colace * Continue regular diet German New, PGY-1 <Gabriel Luo - Last Filed: 12/19/17 20:06> Objective - Vital Signs/Intake and Output Vital Signs (last 24 hours): Temp Pulse Resp BP Pulse Ox 99.0 F 87 20 116/72 93 L 12/19/17 16:12 12/19/17 16:12 12/19/17 16:12 12/19/17 16:12 12/19/17 16:12 Intake and Output: 12/19/17 12/20/17 18:59 06:59 Intake Total 500 Balance 500 - Medications Medications: Current Medications Acetaminophen (Tylenol 325mg Tab) 650 mg PO Q6 PRN PRN Reason: Pain, Mild (1-3) Bupropion HCl (Wellbutrin Xl) 150 mg PO DAILY [facility] Last Admin: 12/19/17 11:00 Dose: 150 mg Docusate Sodium (Colace) 100 mg PO BID [facility] Last Admin: 12/19/17 17:13 Dose: 100 mg Enoxaparin Sodium (Lovenox) 40 mg SC DAILY [facility] Last Admin: 12/19/17 10:07 Dose: 40 mg Escitalopram Oxalate (Lexapro) 5 mg PO DAILY [facility] Last Admin: 12/19/17 10:07 Dose: 5 mg Hydromorphone HCl (Dilaudid) 0.5 mg IVP Q10M PRN PRN Reason: Pain, moderate (4-7) Vancomycin/Sodium Chloride (Vancomycin 1 Gm/Ns 200 Ml) 1 gm in 200 mls @ 133.333 mls/hr IVPB Q8 [facility] PRN Reason: Protocol Stop: 12/24/17 13:01 Last Admin: 12/19/17 13:11 Dose: 133.333 mls/hr Oxycodone/Acetaminophen (Percocet 5/325 Mg Tab) 1 tab PO Q4H PRN PRN Reason: Pain, moderate (4-7) Stop: 12/21/17 14:55 Last Admin: 12/18/17 20:50 Dose: 1 tab Oxycodone/Acetaminophen (Percocet 5/325 Mg Tab) 2 tab PO Q4H PRN PRN Reason: Pain, severe (8-10) Stop: 12/21/17 14:55 Last Admin: 12/19/17 12:28 Dose: 2 tab Zolpidem Tartrate (Ambien) 5 mg PO HS PRN PRN Reason: Insomnia - Labs Labs: 12/19/17 08:00 12/19/17 08:00 Attending/Attestation - Attestation I have personally seen and examined this patient.: Yes I have fully participated in the care of the patient.: Yes I have reviewed all pertinent clinical information, including history, physical exam and plan: Yes
--- NOTE | 2017-12-19 19:45 | CP.PCM.HP ---
History of Present Illness - History of Present Illness History of Present Illness: Podiatry Note: Dr. Briseno 42 year old male with PMHx of anxiety, depression, ADHA, insomnia, hypoglycemia was evaluated 1 day s/p left foot removal of painful hardware from the calc. Patient is AAOx3 and appears in NAD. Patient denies of any acute overnight events. Denies of overnight fever. Denies of any other pedal complains at this time. Denies of C/N/V/SOB/CP/headache. PMHx: anxiety, depression, ADHA, insomnia, hypoglycemia PSHx: left calc ORIF SHx: denies alcohol and drugs, reports recently smoking 10 cigarettes per day since the fall that broke his calcaneus Allergies: Penicillins Present on Admission - Present on Admission Any Indicators Present on Admission: No History of DVT/PE: No History of Uncontrolled Diabetes: No History Surgical Site Infection Following: Orthopedic Procedures (left foot infection) Review of Systems - Constitutional Constitutional: As Per HPI Past Patient History - Infectious Disease Hx of Infectious Diseases: None - Past Medical History & Family History Past Medical History?: No - Past Social History Smoking Status: Former Smoker - CARDIAC Hx Cardiac Disorders: No - PULMONARY Hx Respiratory Disorders: No - NEUROLOGICAL Hx Neurological Disorder: No - HEENT Hx HEENT Problems: Yes (GLASSES) - RENAL Hx Chronic Kidney Disease: No - ENDOCRINE/METABOLIC Hx Endocrine Disorders: No Other/Comment: Hx of hypoglycemia - HEMATOLOGICAL/ONCOLOGICAL Hx Blood Disorders: No - INTEGUMENTARY Hx Dermatological Problems: Yes (HEALED ULCER LEFT HEEL) - MUSCULOSKELETAL/RHEUMATOLOGICAL Hx Musculoskeletal Disorders: Yes Hx Falls: Yes Hx Fractures: Yes (LEFT CALCANEAL) - GASTROINTESTINAL Hx Gastrointestinal Disorders: No - GENITOURINARY/GYNECOLOGICAL Hx Genitourinary Disorders: No - PSYCHIATRIC Hx Psychophysiologic Disorder: Yes Hx Anxiety: Yes (ADHD) Hx Depression: Yes Hx Substance Use: No Other/Comment: insomnia, ADHD - SURGICAL HISTORY Hx Surgeries: Yes Hx Open Reduction Internal Fixation: Yes (LEFT FOOT) Hx Orthopedic Surgery: Yes (left foot) - ANESTHESIA Hx Anesthesia: Yes Hx Anesthesia Reactions: No Hx Malignant Hyperthermia: No Has any member of the family had a problem w/ anesthesia?: (UNKNOWN) Meds Allergies/Adverse Reactions: Allergies Allergy/AdvReac Type Severity Reaction Status Date / Time Penicillins Allergy Severe ANAPHYLAXIS Verified 07/05/18 09:04 Physical Exam - Constitutional Appears: Well, Non-toxic, No Acute Distress - Extremities Exam Additional comments: Left LE splint is clean, dry and intact No strike through noted ROM at the MTPJ intact, CREDIT CHECKER: < 3 sec to all digits - Neurological Exam Neurological exam: Alert, Oriented x3 - Psychiatric Exam Psychiatric exam: Normal Affect, Normal Mood Results - Vital Signs Recent Vital Signs: Last Vital Signs Temp 99.0 F 12/19/17 16:12 Pulse 87 12/19/17 16:12 Resp 20 12/19/17 16:12 BP 116/72 12/19/17 16:12 Pulse Ox 93 L 12/19/17 16:12 - Labs Result Diagrams: 12/19/17 08:00 12/19/17 08:00 Labs: Laboratory Results - last 24 hr 12/19/17 12/19/17 08:00 08:00 WBC 9.2 RBC 4.06 L Hgb 12.1 D Hct 35.9 MCV 88.5 MCH 29.9 MCHC 33.8 RDW 14.1 Plt Count 279 MPV 7.1 L Neut % (Auto) 71.1 Lymph % (Auto) 13.8 L [place] % (Auto) 8.3 Eos % (Auto) 5.9 H Baso % (Auto) 0.9 Neut # (Auto) 6.6 Lymph # (Auto) 1.3 [place] # (Auto) 0.8 Eos # (Auto) 0.5 Baso # (Auto) 0.1 ESR 44 H Sodium 138 Potassium 4.1 Chloride 102 Carbon Dioxide 26 Anion Gap 14 BUN 11 Creatinine 1.1 Est GFR ( Amer) > 60 Est GFR (Non-Af Amer) > 60 Random Glucose 107 Calcium 8.7 Assessment & Plan - Assessment and Plan (Free Text) Assessment: 42 year old male was evaluated 1 day s/p removal of hardware left calcaneus Plan: Patient seen and evaluated Discussed plan with attending Dr. Briseno Labs, Vitals and charts reviewed - afebrile, no leukocytosis Pain well controlled Intra-op bone cultures - pending ID consult - Dr. Chavira; help appreciated Medical management as per Dr. Seda Luo - help appreciated Podiatry will monitor patient - Date & Time Date: 12/19/17 Time: 10:00
--- NOTE | 2017-12-19 20:07 | CP.PCM.PCO ---
Physician Communication Note - Physician Communication Note Physician Communication Note: Please see above
[2017-12-20] MEDS: Vancomycin 1 gm/NS 200 ml 1 GM/200 ML BAG IVPB SCH ×3 (05:08→21:17)
[2017-12-20] MEDS: Oxycodone/Acetaminophen 5/325 mg Tab PO PRN ×3 (05:33→21:10)
[2017-12-20] MEDS: Enoxaparin 40 mg Syringe SC SCH (10:02)
[2017-12-20] MEDS: buPROPion 150 mg/24 Hours XL Tab PO SCH (10:03)
--- NOTE | 2017-12-20 12:39 | CP.PCM.PN ---
Subjective - Date & Time of Evaluation Date of Evaluation: 12/20/17 Time of Evaluation: 12:37 - Subjective Subjective: Podiatry Progress Note: Dr. Briseno 42 year old male was evaluated 2 days s/p left foot removal of painful hardware from the calc. Patient is AAOx3 and appears in NAD. Patient denies of any acute overnight events. Denies of overnight fever. Denies of any other pedal complains at this time. Denies of C/N/V/SOB/CP/headache. Objective - Vital Signs/Intake and Output Vital Signs (last 24 hours): Temp Pulse Resp BP Pulse Ox 97.7 F 77 20 124/81 95 12/20/17 07:50 12/20/17 07:50 12/20/17 07:50 12/20/17 07:50 12/20/17 07:50 Intake and Output: 12/20/17 12/20/17 06:59 18:59 Intake Total 440 Output Total 700 Balance -260 - Medications Medications: Current Medications Acetaminophen (Tylenol 325mg Tab) 650 mg PO Q6 PRN PRN Reason: Pain, Mild (1-3) Bupropion HCl (Wellbutrin Xl) 150 mg PO DAILY [facility] Last Admin: 12/20/17 10:03 Dose: 150 mg Docusate Sodium (Colace) 100 mg PO BID [facility] Last Admin: 12/20/17 10:02 Dose: 100 mg Enoxaparin Sodium (Lovenox) 40 mg SC DAILY [facility] Last Admin: 12/20/17 10:02 Dose: 40 mg Escitalopram Oxalate (Lexapro) 5 mg PO DAILY [facility] Last Admin: 12/20/17 10:03 Dose: 5 mg Hydromorphone HCl (Dilaudid) 0.5 mg IVP Q10M PRN PRN Reason: Pain, moderate (4-7) Vancomycin/Sodium Chloride (Vancomycin 1 Gm/Ns 200 Ml) 1 gm in 200 mls @ 133.333 mls/hr IVPB Q8 [facility]OL PRN Reason: Protocol Stop: 12/24/17 13:01 Last Admin: 12/20/17 05:08 Dose: 133.333 mls/hr Aztreonam 1 gm/ Sodium (Chloride) 100 mls @ 200 mls/hr IVPB Q8H [facility]OL PRN Reason: Protocol Oxycodone/Acetaminophen (Percocet 5/325 Mg Tab) 1 tab PO Q4H PRN PRN Reason: Pain, moderate (4-7) Stop: 12/21/17 14:55 Last Admin: 12/20/17 05:33 Dose: 1 tab Oxycodone/Acetaminophen (Percocet 5/325 Mg Tab) 2 tab PO Q4H PRN PRN Reason: Pain, severe (8-10) Stop: 12/21/17 14:55 Last Admin: 12/19/17 21:30 Dose: 2 tab Zolpidem Tartrate (Ambien) 5 mg PO HS PRN PRN Reason: Insomnia - Labs Labs: 12/19/17 08:00 12/19/17 08:00 - Constitutional Appears: Well, Non-toxic, No Acute Distress - Extremities Exam Additional comments: Left LE splint is clean, dry and intact No strike through noted ROM at the MTPJ intact, CHROMIUM PLATER: < 3 sec to all digits - Neurological Exam Neurological Exam: Alert, Awake, Oriented x3 - Psychiatric Exam Psychiatric exam: Normal Affect, Normal Mood Assessment and Plan - Assessment and Plan (Free Text) Assessment: 42 year old male was evaluated 2 days s/p removal of hardware left calcaneus Plan: Patient seen and evaluated Discussed plan with attending Dr. Briseno Labs, Vitals and charts reviewed - afebrile, no leukocytosis Pain well controlled Intra-op bone cultures - G negative rods ID consult - Dr. Chavira; help appreciated Medical management as per Dr. Seda Luo - help appreciated Podiatry will monitor patient
[2017-12-20] MEDS: Aztreonam 1 GM in Sodium Chloride 0.9% 100 ML IVPB SCH ×2 (13:00→20:07)
--- NOTE | 2017-12-20 14:49 | CP.PCM.PN ---
Subjective - Date & Time of Evaluation Date of Evaluation: 12/20/17 Time of Evaluation: 07:00 - Subjective Subjective: discussed on rounds OR cultures + for gram neg rods IV azactam added Objective - Vital Signs/Intake and Output Vital Signs (last 24 hours): Temp Pulse Resp BP Pulse Ox 97.7 F 77 20 124/81 95 12/20/17 07:50 12/20/17 07:50 12/20/17 07:50 12/20/17 07:50 12/20/17 07:50 Intake and Output: 12/20/17 12/20/17 06:59 18:59 Intake Total 440 900 Output Total 700 1200 Balance -260 -300 - Medications Medications: Current Medications Acetaminophen (Tylenol 325mg Tab) 650 mg PO Q6 PRN PRN Reason: Pain, Mild (1-3) Bupropion HCl (Wellbutrin Xl) 150 mg PO DAILY [facility] Last Admin: 12/20/17 10:03 Dose: 150 mg Docusate Sodium (Colace) 100 mg PO BID [facility] Last Admin: 12/20/17 10:02 Dose: 100 mg Enoxaparin Sodium (Lovenox) 40 mg SC DAILY [facility] Last Admin: 12/20/17 10:02 Dose: 40 mg Escitalopram Oxalate (Lexapro) 5 mg PO DAILY [facility] Last Admin: 12/20/17 10:03 Dose: 5 mg Hydromorphone HCl (Dilaudid) 0.5 mg IVP Q10M PRN PRN Reason: Pain, moderate (4-7) Vancomycin/Sodium Chloride (Vancomycin 1 Gm/Ns 200 Ml) 1 gm in 200 mls @ 133.333 mls/hr IVPB Q8 [facility] PRN Reason: Protocol Stop: 12/24/17 13:01 Last Admin: 12/20/17 13:57 Dose: 133.333 mls/hr Aztreonam 1 gm/ Sodium (Chloride) 100 mls @ 200 mls/hr IVPB Q8H [facility] PRN Reason: Protocol Last Admin: 12/20/17 13:00 Dose: 200 mls/hr Oxycodone/Acetaminophen (Percocet 5/325 Mg Tab) 1 tab PO Q4H PRN PRN Reason: Pain, moderate (4-7) Stop: 12/21/17 14:55 Last Admin: 07/11/18 14:01 Dose: 1 tab Oxycodone/Acetaminophen (Percocet 5/325 Mg Tab) 2 tab PO Q4H PRN PRN Reason: Pain, severe (8-10) Stop: 12/21/17 14:55 Last Admin: 12/19/17 21:30 Dose: 2 tab Zolpidem Tartrate (Ambien) 5 mg PO HS PRN PRN Reason: Insomnia - Labs Labs: 12/19/17 08:00 12/19/17 08:00 - Constitutional Appears: Well - Head Exam Head Exam: ATRAUMATIC, NORMAL INSPECTION, NORMOCEPHALIC - Eye Exam Eye Exam: EOMI, Normal appearance, PERRL Pupil Exam: NORMAL ACCOMODATION, PERRL - ENT Exam ENT Exam: Mucous Membranes Moist, Normal Exam - Neck Exam Neck Exam: Full ROM, Normal Inspection. absent: Lymphadenopathy - Respiratory Exam Respiratory Exam: Clear to Ausculation Bilateral, NORMAL BREATHING PATTERN - Cardiovascular Exam Cardiovascular Exam: REGULAR RHYTHM, +S1, +S2. absent: Murmur - GI/Abdominal Exam GI & Abdominal Exam: Soft, Normal Bowel Sounds. absent: Tenderness - Rectal Exam Rectal Exam: NORMAL INSPECTION - Exam Exam: Circumcision, NORMAL INSPECTION - Extremities Exam Extremities Exam: Full ROM, Normal Capillary Refill, Normal Inspection, Pedal Edema. absent: Joint Swelling - Back Exam Back Exam: NORMAL INSPECTION - Neurological Exam Neurological Exam: Alert, Awake, CN II-XII Intact, Normal Gait, Oriented x3 - Psychiatric Exam Psychiatric exam: Normal Affect, Normal Mood - Skin Skin Exam: Dry, Intact, Normal Color, Warm Assessment and Plan (1) Calcaneal fracture Status: Acute - Assessment and Plan (Free Text) Assessment: cont vanco /azactam may need rat exterminator IV/ PO rx
[2017-12-21] MEDS: Aztreonam 1 GM in Sodium Chloride 0.9% 100 ML IVPB SCH ×3 (04:02→20:24)
[2017-12-21] MEDS: Vancomycin 1 gm/NS 200 ml 1 GM/200 ML BAG IVPB SCH ×3 (05:27→21:13)
[2017-12-21] MEDS: Oxycodone/Acetaminophen 5/325 mg Tab PO PRN ×3 (05:30→14:21)
[2017-12-21 07:55] LABS: BASO # 0.1 K/uL (0.0-0.2); EOS # 0.5 K/uL (0.0-0.7); EOS % 6.1 % (0.0-4.0); HEMOGLOBIN 13.4 g/dL (12.0-18.0); LYMPH # 1.6 K/uL (1.0-4.3); LYMPH % 20.4 % (20.0-40.0); MEAN CELL VOLUME 87.6 fL (80.0-94.0); MEAN CORPUSCULAR HEMOGLOBIN 30.2 pg (27.0-31.0); MEAN CORPUSCULAR HGB CONC 34.5 g/dL (33.0-37.0); MEAN PLATELET VOLUME 6.7 fL (7.2-11.7); MONO # 0.8 K/uL (0.0-0.8); MONO % 10.6 % (0.0-10.0); NEUT # 4.9 K/uL (1.8-7.0); NEUT % 61.9 % (50.0-75.0); RBC 4.43 Mil/uL (4.40-5.90); RED CELL DISTRIBUTION WIDTH 13.8 % (11.5-14.5); WHITE BLOOD COUNT 7.9 K/uL (4.8-10.8)
[2017-12-21 08:13] LABS: BLOOD UREA NITROGEN 11 mg/dL (9-20); CALCIUM 9.1 mg/dl (8.6-10.4); GFR AFRICAN-AMERICAN > 60; GFR NON-AFRICAN AMERICAN > 60
[2017-12-21] MEDS: buPROPion 150 mg/24 Hours XL Tab PO SCH (09:29)
[2017-12-21] MEDS: Enoxaparin 40 mg Syringe SC SCH (09:29)
--- NOTE | 2017-12-21 15:28 | CP.PCM.PN ---
Subjective - Date & Time of Evaluation Date of Evaluation: 12/21/17 Time of Evaluation: 11:00 - Subjective Subjective: Podiatry Progress Note: Dr. Briseno 42 year old male was evaluated 3 days s/p left foot removal of painful hardware from the calc. Patient denies of any acute overnight events. Patient is AAOx3 and appears in NAD. Denies of overnight fever. Denies of any other pedal complains at this time. Denies of C/N/V/SOB/CP/headache. Objective - Vital Signs/Intake and Output Vital Signs (last 24 hours): Temp Pulse Resp BP Pulse Ox 98.3 F 60 20 107/69 96 12/21/17 07:50 12/21/17 07:50 12/21/17 07:50 12/21/17 07:50 12/21/17 07:50 Intake and Output: 12/21/17 12/21/17 06:59 18:59 Intake Total 780 Output Total 700 Balance 80 - Medications Medications: Current Medications Acetaminophen (Tylenol 325mg Tab) 650 mg PO Q6 PRN PRN Reason: Pain, Mild (1-3) Bupropion HCl (Wellbutrin Xl) 150 mg PO DAILY [facility] Last Admin: 12/21/17 09:29 Dose: 150 mg Docusate Sodium (Colace) 100 mg PO BID [facility] Last Admin: 12/21/17 09:29 Dose: 100 mg Enoxaparin Sodium (Lovenox) 40 mg SC DAILY [facility] Last Admin: 12/21/17 09:29 Dose: 40 mg Escitalopram Oxalate (Lexapro) 5 mg PO DAILY [facility] Last Admin: 12/21/17 09:29 Dose: 5 mg Vancomycin/Sodium Chloride (Vancomycin 1 Gm/Ns 200 Ml) 1 gm in 200 mls @ 133.333 mls/hr IVPB Q8 MARIZOL PRN Reason: Protocol Stop: 12/24/17 13:01 Last Admin: 12/21/17 14:11 Dose: 133.333 mls/hr Aztreonam 1 gm/ Sodium (Chloride) 100 mls @ 200 mls/hr IVPB Q8H MARIZOL PRN Reason: Protocol Last Admin: 12/21/17 12:33 Dose: 200 mls/hr Zolpidem Tartrate (Ambien) 5 mg PO PRN PRN Reason: Insomnia - Labs Labs: 12/21/17 07:47 12/21/17 07:47 - Constitutional Appears: Well, Non-toxic, No Acute Distress - Extremities Exam Additional comments: LLE focused exam VASC: DP/PT pulses are palpable 1/4, Cap refill time: < 3 sec to all digits, Temp gradient: warm to cool from proximal to distal, localized non-pitting edema noted surrounding the surgical site DERM: no open lesions, surgical sutures are intact with no dehicense, no active drainage, localized small amount of ecchymosis noted, no clinical suspicion of active infection NEURO: protective sensation grossly intact ORTHO: tenderness on palpation of the surgical site - Neurological Exam Neurological Exam: Alert, Awake, Oriented x3 - Psychiatric Exam Psychiatric exam: Normal Affect, Normal Mood Assessment and Plan - Assessment and Plan (Free Text) Assessment: 42 year old male was evaluated 3 days s/p removal of hardware left calcaneus Plan: Patient seen and evaluated Discussed plan with attending Dr. Briseno Labs, Vitals and charts reviewed - afebrile, no leukocytosis Pain well controlled Intra-op bone cultures - Klebsiella pneumoniae Bone bx: pending ID consult - Dr. Chavira; help appreciated Medical management as per Dr. Seda Luo - help appreciated Podiatry will monitor patient
--- NOTE | 2017-12-21 18:37 | CP.PCM.PN ---
Subjective - Date & Time of Evaluation Date of Evaluation: 12/21/17 Time of Evaluation: 10:00 - Subjective Subjective: events noted await path report cultures + Klebs Objective - Vital Signs/Intake and Output Vital Signs (last 24 hours): Temp Pulse Resp BP Pulse Ox 99 F 63 20 157/98 H 95 12/21/17 16:00 12/21/17 16:00 12/21/17 16:00 12/21/17 16:00 12/21/17 16:00 Intake and Output: 12/21/17 12/21/17 06:59 18:59 Intake Total 780 Output Total 700 Balance 80 - Medications Medications: Current Medications Acetaminophen (Tylenol 325mg Tab) 650 mg PO Q6 PRN PRN Reason: Pain, Mild (1-3) Bupropion HCl (Wellbutrin Xl) 150 mg PO DAILY [facility] Last Admin: 12/21/17 09:29 Dose: 150 mg Docusate Sodium (Colace) 100 mg PO BID [facility] Last Admin: 12/21/17 17:36 Dose: 100 mg Enoxaparin Sodium (Lovenox) 40 mg SC DAILY [facility] Last Admin: 12/21/17 09:29 Dose: 40 mg Escitalopram Oxalate (Lexapro) 5 mg PO DAILY [facility] Last Admin: 12/21/17 09:29 Dose: 5 mg Vancomycin/Sodium Chloride (Vancomycin 1 Gm/Ns 200 Ml) 1 gm in 200 mls @ 133.333 mls/hr IVPB Q8 MARIZOL PRN Reason: Protocol Stop: 12/24/17 13:01 Last Admin: 12/21/17 14:11 Dose: 133.333 mls/hr Aztreonam 1 gm/ Sodium (Chloride) 100 mls @ 200 mls/hr IVPB Q8H MARIZOL PRN Reason: Protocol Last Admin: 12/21/17 12:33 Dose: 200 mls/hr Zolpidem Tartrate (Ambien) 5 mg PO HS PRN PRN Reason: Insomnia - Labs Labs: 12/21/17 07:47 12/21/17 07:47 - Constitutional Appears: Non-toxic, Chronically Ill - Head Exam Head Exam: NORMOCEPHALIC - Eye Exam Eye Exam: PERRL - ENT Exam ENT Exam: Mucous Membranes Dry - Neck Exam Neck Exam: absent: Lymphadenopathy - Respiratory Exam Respiratory Exam: Decreased Breath Sounds - Cardiovascular Exam Cardiovascular Exam: REGULAR RHYTHM - GI/Abdominal Exam GI & Abdominal Exam: Distended - Rectal Exam Rectal Exam: Deferred - Exam Exam: NORMAL INSPECTION - Extremities Exam Extremities Exam: Pedal Edema Additional comments: LLE focused exam VASC: DP/PT pulses are palpable 1/4, Cap refill time: < 3 sec to all digits, Temp gradient: warm to cool from proximal to distal, localized non-pitting edema noted surrounding the surgical site DERM: no open lesions, surgical sutures are intact with no dehicense, no active drainage, localized small amount of ecchymosis noted, no clinical suspicion of active infection NEURO: protective sensation grossly intact ORTHO: tenderness on palpation of the surgical site - Back Exam Back Exam: absent: CVA tenderness (L), CVA tenderness (R) - Neurological Exam Neurological Exam: Alert, Awake, Oriented x3 Assessment and Plan (1) Calcaneal fracture Status: Acute - Assessment and Plan (Free Text) Assessment: s/p hardware removal / OM left calcaneus cultures + Klebs possible assisted PO CIPRO for minimum 8 weeks ( possibly longer depending on clinical progression or lack thereof) will need out pt imaging ongoing wound care
[2017-12-22] MEDS: Aztreonam 1 GM in Sodium Chloride 0.9% 100 ML IVPB SCH ×2 (03:30→11:36)
[2017-12-22] MEDS: Vancomycin 1 gm/NS 200 ml 1 GM/200 ML BAG IVPB SCH ×2 (05:00→13:22)
[2017-12-22 08:11] VITALS: O2SAT 95
[2017-12-22] MEDS: Enoxaparin 40 mg Syringe SC SCH (09:41)
[2017-12-22] MEDS: buPROPion 150 mg/24 Hours XL Tab PO SCH (09:41)
--- NOTE | 2017-12-22 12:01 | CP.PCM.PN ---
Subjective - Date & Time of Evaluation Date of Evaluation: 12/22/17 Time of Evaluation: 11:56 - Subjective Subjective: Podiatry Progress Note: Dr. Briseno 42 year old male was evaluated 4 days s/p left foot removal of painful hardware from the calc. Patient denies of any acute overnight events. Patient is AAOx3 and appears in NAD. Seen sitting in chair with left LE elevated. Denies of overnight fever. Denies of any other pedal complains at this time. Denies of C/N /V/SOB/CP/headache. Objective - Vital Signs/Intake and Output Vital Signs (last 24 hours): Temp Pulse Resp BP Pulse Ox 97.8 F 65 20 115/76 95 12/22/17 08:08 12/22/17 08:08 12/22/17 08:08 12/22/17 08:08 12/22/17 08:08 Intake and Output: 12/22/17 12/22/17 06:59 18:59 Intake Total 1500 Output Total 1000 Balance 500 - Medications Medications: Current Medications Acetaminophen (Tylenol 325mg Tab) 650 mg PO Q6 PRN PRN Reason: Pain, Mild (1-3) Last Admin: 12/22/17 05:00 Dose: 650 mg Bupropion HCl (Wellbutrin Xl) 150 mg PO DAILY [facility] Last Admin: 12/22/17 09:41 Dose: 150 mg Docusate Sodium (Colace) 100 mg PO BID [facility] Last Admin: 12/22/17 09:41 Dose: 100 mg Enoxaparin Sodium (Lovenox) 40 mg SC DAILY [facility] Last Admin: 12/22/17 09:41 Dose: 40 mg Escitalopram Oxalate (Lexapro) 5 mg PO DAILY [facility] Last Admin: 12/22/17 09:41 Dose: 5 mg Vancomycin/Sodium Chloride (Vancomycin 1 Gm/Ns 200 Ml) 1 gm in 200 mls @ 133.333 mls/hr IVPB Q8 MARIZOL PRN Reason: Protocol Stop: 12/24/17 13:01 Last Admin: 12/22/17 05:00 Dose: 133.333 mls/hr Aztreonam 1 gm/ Sodium (Chloride) 100 mls @ 200 mls/hr IVPB Q8H MARIZOL PRN Reason: Protocol Last Admin: 12/22/17 11:36 Dose: 200 mls/hr Zolpidem Tartrate (Ambien) 5 mg PO HS PRN PRN Reason: Insomnia - Labs Labs: 12/21/17 07:47 12/21/17 07:47 - Constitutional Appears: Well, Non-toxic, No Acute Distress - Extremities Exam Additional comments: Left LE splint is clean, dry and intact No strike through noted ROM at the MTPJ intact, HEADEND TECHNICIAN: < 3 sec to all digits - Neurological Exam Neurological Exam: Alert, Awake, Oriented x3 - Psychiatric Exam Psychiatric exam: Normal Affect, Normal Mood Assessment and Plan - Assessment and Plan (Free Text) Assessment: 42 year old male was evaluated 4 days s/p removal of hardware left calcaneus Plan: Patient seen and evaluated Discussed plan with attending Dr. Briseno Labs, Vitals and charts reviewed - afebrile, no leukocytosis - ESR: 61; CRP: 88.50 Pain well controlled Intra-op bone cultures - Klebsiella pneumoniae Path reports of bone bx: Fragments of bone showing reactive changes ID consult - Dr. Chavira; help appreciated - possible fdc PO CIPRO for minimum 8 weeks (possibly longer depending on clinical progression) Medical management as per Dr. Seda Luo - help appreciated Podiatry will monitor patient
--- NOTE | 2017-12-22 15:19 | CP.PCM.DIS ---
Provider - Provider Date of Admission: 12/18/17 15:37 Attending physician: Gale Briseno DPM Time Spent in preparation of Discharge (in minutes): 20 Hospital Course - Lab Results Lab Results: Micro Results 12/18/17 08:56 Bone Gram Stain - Final 12/18/17 08:56 Bone Tissue Culture - Final Klebsiella Pneumoniae Ssp Pneu Most Recent Lab Values WBC 7.9 K/uL (4.8-10.8) 12/21/17 07:47 RBC 4.43 Mil/uL (4.40-5.90) 12/21/17 07:47 Hgb 13.4 g/dL (12.0-18.0) 12/21/17 07:47 Hct 38.8 % (35.0-51.0) 12/21/17 07:47 MCV 87.6 fL (80.0-94.0) 12/21/17 07:47 MCH 30.2 pg (27.0-31.0) 12/21/17 07:47 MCHC 34.5 g/dL (33.0-37.0) 12/21/17 07:47 RDW 13.8 % (11.5-14.5) 12/21/17 07:47 Plt Count 272 K/uL (130-400) 12/21/17 07:47 MPV 6.7 fL (7.2-11.7) L 12/21/17 07:47 Neut % (Auto) 61.9 % (50.0-75.0) 12/21/17 07:47 Lymph % (Auto) 20.4 % (20.0-40.0) 12/21/17 07:47 Guadalupe % (Auto) 10.6 % (0.0-10.0) H 12/21/17 07:47 Eos % (Auto) 6.1 % (0.0-4.0) H 12/21/17 07:47 Baso % (Auto) 1.0 % (0.0-2.0) 12/21/17 07:47 Neut # (Auto) 4.9 K/uL (1.8-7.0) 12/21/17 07:47 Lymph # (Auto) 1.6 K/uL (1.0-4.3) 12/21/17 07:47 Guadalupe # (Auto) 0.8 K/uL (0.0-0.8) 12/21/17 07:47 Eos # (Auto) 0.5 K/uL (0.0-0.7) 12/21/17 07:47 Baso # (Auto) 0.1 K/uL (0.0-0.2) 12/21/17 07:47 ESR 61 mm/hr (0-15) H 12/21/17 07:47 Sodium 139 mmol/L (132-148) 12/21/17 07:47 Potassium 4.1 mmol/L (3.6-5.2) 12/21/17 07:47 Chloride 99 mmol/L (98-107) 12/21/17 07:47 Carbon Dioxide 30 mmol/L (22-30) 12/21/17 07:47 Anion Gap 14 (10-20) 12/21/17 07:47 BUN 11 mg/dL (9-20) 12/21/17 07:47 Creatinine 0.9 mg/dL (0.8-1.5) 12/21/17 07:47 Est GFR ( Amer) > 60 12/21/17 07:47 Est GFR (Non-Af Amer) > 60 12/21/17 07:47 Random Glucose 95 mg/dL (75-110) 12/21/17 07:47 Calcium 9.1 mg/dl (8.6-10.4) 12/21/17 07:47 C-Reactive Protein 88.50 mg/L (0.0-9.9) H 12/21/17 07:47 Vancomycin Trough 9.9 ug/mL (5.0-10.0) 12/20/17 12:20 - Hospital Course Hospital Course: 42 year old male with PMHx of anxiety, depression, ADHA, insomnia, hypoglycemia was admitted to the hospital s/p removal of hardware from left calcaneus. Patient was evaluated by infectious disease while on the floor who recommended 8 weeks of PO Ciprofloxacin 500 mg twice daily after evaluating the intra-op bone cultures and bone pathology. Patient was also followed by podiatry team daily. At this time, patient is stable to be discharged from the hospital. - Date & Time of H&P Date of H&P: 12/22/17 Time of H&P: 15:15 Discharge Exam - Head Exam Head Exam: NORMOCEPHALIC Discharge Plan - Follow Up Plan Condition: GOOD Disposition: HOME/ ROUTINE Additional Instructions: Please keep dressing clean, dry and intact Remain STRICT non-weight bearing to the left lower extremity using crutches Take Ciprofloxacin 500 mg twice daily (8am and at 8pm) orally for 8 weeks - Take probiotics (yogurt) daily for 8 weeks and 30 days after the antibiotics course is completed Follow up with Dr. Maldonado in the clinic once a week - Get Labs (CBC, BMP, CRP) once a week Follow up with Dr. Gale Briseno in podiatry clinic EVERY MONDAY (12:00 pm)
--- NOTE | 2017-12-22 15:35 | CP.PCM.PN ---
Subjective - Date & Time of Evaluation Date of Evaluation: 12/22/17 Time of Evaluation: 08:00 - Subjective Subjective: discussed on rounds will need 8 weeks oral rx possibly followed by senior care suppresive rx if bone activity persists- serial sed rates and crp's as well as follow up imaging will be needed prognosis is guarded and possibility of BKA has been discussed with the patient Objective - Vital Signs/Intake and Output Vital Signs (last 24 hours): Temp Pulse Resp BP Pulse Ox 97.8 F 65 20 115/76 95 12/22/17 08:08 12/22/17 08:08 12/22/17 08:08 12/22/17 08:08 12/22/17 08:08 Intake and Output: 12/22/17 12/22/17 06:59 18:59 Intake Total 1500 700 Output Total 1000 450 Balance 500 250 - Medications Medications: Current Medications Acetaminophen (Tylenol 325mg Tab) 650 mg PO Q6 PRN PRN Reason: Pain, Mild (1-3) Last Admin: 12/22/17 05:00 Dose: 650 mg Bupropion HCl (Wellbutrin Xl) 150 mg PO DAILY [facility] Last Admin: 12/22/17 09:41 Dose: 150 mg Docusate Sodium (Colace) 100 mg PO BID [facility] Last Admin: 12/22/17 09:41 Dose: 100 mg Enoxaparin Sodium (Lovenox) 40 mg SC DAILY [facility] Last Admin: 12/22/17 09:41 Dose: 40 mg Escitalopram Oxalate (Lexapro) 5 mg PO DAILY [facility] Last Admin: 12/22/17 09:41 Dose: 5 mg Vancomycin/Sodium Chloride (Vancomycin 1 Gm/Ns 200 Ml) 1 gm in 200 mls @ 133.333 mls/hr IVPB Q8 MARIZOL PRN Reason: Protocol Stop: 12/24/17 13:01 Last Admin: 12/22/17 13:22 Dose: 133.333 mls/hr Aztreonam 1 gm/ Sodium (Chloride) 100 mls @ 200 mls/hr IVPB Q8H MARIZOL PRN Reason: Protocol Last Admin: 12/22/17 11:36 Dose: 200 mls/hr Zolpidem Tartrate (Ambien) 5 mg PO HS PRN PRN Reason: Insomnia - Labs Labs: 12/21/17 07:47 12/21/17 07:47 Assessment and Plan (1) Calcaneal fracture Status: Acute
[2017-12-22 15:53] VITALS: BP 107/73; PULSE 64; TEMP 97.9
--- NOTE | 2017-12-24 21:08 | PCM.OP ---
Operative Report - Operative Report Date of Surgery/Procedure: 12/18/17 Time of Surgery/Procedure: 13:30 Surgeon: Dr. Briseno Broomcorn Scraper: Dr. Johnny Abdullahi, Dr. Cleo Dsouza, Dr. Roselia Luo Anesthesia/Sedation: General LMA Pre-Operative Diagnosis: Pre-Operative Diagnoses: 1)Left foot painful retained hardware Post-Operative Diagnosis: same Indication for Surgery: Indications: The patient is a 42 year-old male with the above diagnoses. The patient has exhausted conservative treatment at this time and now requests surgical intervention. The patient signed the consent after careful explanation of risks, benefits, complication and alternatives for surgical procedure. No guarantees were given nor implied. 2g of Ancef IV were given to the pt hour prior to the procedure. NPO status was confirmed prior to taking pt to the OR. Operative Findings: Preparation: The patient was brought to the operating room and placed on the operating room table in supine position. A well-padded pneumatic ankle tourniquet was placed to the patient's Left ankle in a supramalleolar position. Once general anesthesia was achieved, the Left foot was then prepped and draped in usual sterile manner. Esmarch was utilized to exsanguinate the patient's Left foot. Pneumatic ankle tourniquet was then inflated to 250 mmHg and procedure began. Procedure/Operation Description: PROCEDURE #1: Left foot removal of painful hardware. Intra-operative Xray was taken before making any incision to confirm the locations of hardware. A metal plate and screw were radiographically confirmed to the Left foot cancaleus. Attention was then directed to the lateral medial aspect of the patients left foot where a prominent metal plate was palpated. An approximately 12 cm lateral extensile incision was made to the lateral aspect of left foot heel with apex pointing toward calcaneal tuberosity. The incision was deepened through the subcutaneous tissues with care being taken to identify and retract all vital neurovascular structures, all bleeders were cauterized and ligated as necessary. At this time the metal plate along with screws from previous calcaneal fracture surgery was visualized. Utilizing proper screw drivers and a freer elevator, the lateral metal plate and all its screws were removed from the calcaneus. Next, attention was directed to the posterior aspect of the left heel, where a prominent screw head was palpated over the skin. A small stab incision was made over the prominent skin. The incision was deepened through the subcutaneous tissues with care being taken to identify and retract all vital neurovascular structures, all bleeders were cauterized and ligated as necessary. A metal screw head was visualized through the incision. Using a proper screw residential recycle driver, the synthes 7.3mm screw was removed from the calcaneus. Complete removal of the screw was confirmed with intraoperative Xray. Next, attention was then directed to lateral aspect of left heel through the initial lateral extensile incision. Unhealthy appearing portion of calcaneal bone measuring approximately 0.5cm x 0.5cm x 0.5cm in volume was collected with a rongeur to be sent for pathology and culture. Unhealthy portion of Lateral aspect of calcaneus was gently debrided with a curette. The surgical site was irrigated with copious amounts of sterile normal saline. The periosteal and capsular structures were reapproximated and coapted utilizing #3-0 Vicryl, subcutaneous tissue were reapproximated and coapted utilizing #4-0 Vicryl, the skin was reapproximated and coapted utilizing #4-0 Nylon. Left foot was then dressed with Betadine soaked 4x4, Kerlix and posterior splint was applied. The attending was present during the entire case. Estimated Blood Loss: less than 5 mL Complications: none Specimen: Left foot calcaneal bone Discharge & Condition: Postoperative Condition: The patient tolerated the anesthesia and procedure well and was escorted to the recovery room with vital signs stable and neurovascular status intact to the left foot. This patient will follow up with Dr. Briseno
== END 2017-12-22 18:02 | disposition home or self-care (01) | DRG 867 ==
LOC: C.SDS 09:46 → C.9S 15:37 → C.3T 19:43
PROVIDERS: ADMIT Podiatrist Foot & Ankle Surgery; ATTEND Podiatrist Foot & Ankle Surgery
PROC: 0QBM0ZX Excision of Left Tarsal, Open Approach, Diagnostic (ICD-10-PCS; 2017-12-18)
PROC: 0QPM04Z Removal of Internal Fixation Device from Left Tarsal, Open Approach (ICD-10-PCS; principal; 2017-12-18 11:00)
DX: T84.84XA Pain due to internal orthopedic prosthetic devices, implants and grafts, initial encounter (principal); S92.002S Unspecified fracture of left calcaneus, sequela; W19.XXXS Unspecified fall, sequela; F32.9 Major depressive disorder, single episode, unspecified; F41.9 Anxiety disorder, unspecified; F90.9 Attention-deficit hyperactivity disorder, unspecified type; G47.00 Insomnia, unspecified; Y83.1 Surgical operation with implant of artificial internal device as the cause of abnormal reaction of the patient, or of later complication, without mention of misadventure at the time of the procedure; Z87.891 Personal history of nicotine dependence; Z88.0 Allergy status to penicillin